=== PATIENT | male | born 1940 | race Caucasian/White ===

== ENCOUNTER → 2016-09-03 | Outpatient (CLI) | payer OTHER, MEDICARE ==
[2016-09-03 11:18] LABS: BILIRUBIN,URINE NEGATIVE (NEG); CLARITY,URINE Slightly Clo (CLEAR); GLUCOSE, URINE (UA) NEGATIVE (NEG); LEUKOCYTE ESTERASE ,URINE SMALL (NEG); NITRATE,URINE POSITIVE (NEG); OCCULT BLOOD,URINE NEGATIVE (NEG); PH,URINE 5.5 (5.0-8.5); PROTEIN,URINE NEGATIVE (NEG); UROBILINOGEN,URINE 0.2 EU/dL (0.2)
[2016-09-03 11:26] LABS: URINE SAMPLE TYPE CATH SPECIMEN
[2016-09-03 11:27] LABS: BACTERIA,URINE FEW; RBC,URINE 0-2 /hpf; RENAL EPITHELIAL CELLS,URINE RARE; SQUAMOUS EPITHELIAL CELL,UR FEW; WBC,URINE 25-30
== END ==
LOC: LAB 08:52
PROVIDERS: ATTEND Internal Medicine
DX: N39.0 Urinary tract infection, site not specified (principal); R82.99 Other abnormal findings in urine
CPT/HCPCS: 81001; 81003; 87077; 87088; 87186

== ENCOUNTER → 2016-09-05 | Outpatient (CLI) | payer OTHER, MEDICARE | LOC: MMPC 11:11 | PROVIDERS: ATTEND Internal Medicine | DX: L89.323 Pressure ulcer of left buttock, stage 3 (principal); N39.0 Urinary tract infection, site not specified; G82.20 Paraplegia, unspecified | CPT/HCPCS: 99214; G0463; J1580 ==

== ENCOUNTER → 2016-09-10 | Outpatient (CLI) | payer OTHER, MEDICARE ==
[2016-09-10 11:53] LABS: BACTERIA,URINE FEW; BILIRUBIN,URINE NEGATIVE (NEG); CLARITY,URINE CLEAR (CLEAR); GLUCOSE, URINE (UA) NEGATIVE (NEG); LEUKOCYTE ESTERASE ,URINE SMALL (NEG); NITRATE,URINE POSITIVE (NEG); OCCULT BLOOD,URINE NEGATIVE (NEG); PH,URINE 5.5 (5.0-8.5); PROTEIN,URINE NEGATIVE (NEG); RBC,URINE 0-1 /hpf; SQUAMOUS EPITHELIAL CELL,UR RARE; URINE SAMPLE TYPE CATH SPECIMEN; UROBILINOGEN,URINE 0.2 mg/dL (0.2); WBC,URINE 30-40
== END ==
LOC: LAB 11:37
PROVIDERS: ATTEND Internal Medicine
DX: N39.0 Urinary tract infection, site not specified (principal); R82.99 Other abnormal findings in urine
CPT/HCPCS: 81001; 87077; 87088; 87186

== ENCOUNTER → 2016-09-13 | Outpatient (CLI) | payer OTHER, MEDICARE ==
--- NOTE | 2016-09-13 13:00 | DI ---
CT ABDOMEN SCAN WITHOUT IV CONTRAST, 09/13/2016 9:21 AM : Clinical History: Urinary tract infection in a paraplegic patient. Previous Exam: 05/29/2015. Scans are performed from the lower lung bases through the liver and kidneys without IV contrast. Sagi ttal and coronal reformatted images are generated. The lung bases are clear. The liver is normal. The patient is status post cholecystectomy. There is n o abnormality of the spleen, pancreas, and adrenal glands. Both kidneys are normal in size, shape, po sition and contour. There is no hydronephrosis or hydroureter. No renal or ureteral calculi are prese nt. There are no abnormal retrocrural or periaortic nodes. No ascites is present. Posttraumatic avendano es and postsurgical changes are present in the lower thoracic and upper lumbar spine associated with the paraplegia. READING: Normal CT abdomen scan. Both kidneys are unremarkable. CT PELVIS SCAN WITHOUT IV CONTRAST, 09/13/2016 9:21 AM : Clinical History: See above. Previous Exam: 05/29/2015. Scans are performed from the inferior margin of the liver and kidneys to the symphysis pubis without IV contrast. There is no free fluid collection and there is no adenopathy. The appendix is not visualized but ther e is no inflammatory mass either in the cecal tip or in the right lower quadrant. The small bowel, te rminal ileum, and ileocecal valve are normal. There is a colostomy in the left flank region. There ar e no hernias. There has been complete fatty replacement of all the musculature in the abdomen from th e level of the umbilicus inferiorly. There is enlargement of the prostate and the bladder wall is thi ckened. The patient is status post ORIF of a right hip fracture. There is a chronic fracture of what probably was a subcapital fracture of the left hip and there has been erosion of over 50% of the femo ral head and virtually all of the femoral neck. The left femur is displaced superiorly and there is e xtensive inflammatory/infiltrative change surrounding the fracture site, probably representing disten tion of the joint capsule. There is increased density in the fatty tissue in the left buttock region without presence of soft tissue gas. This increased density may represent edema or early inflammation . READIN. There is prosthetic enlargement. The bladder wall is thickened, probably on a neurogenic basis. 2. There is a chronic fracture of the left hip with reabsorption of approximately 50% of the femoral head and almost complete reabsorption of the femoral neck. There is considerable increased density s urrounding the fracture site and this is probably inflammation/fluid related to the joint capsule. 3. There is increased density in the subcutaneous fat on the left side in the buttock region just in ferior to the left inferior pubic ramus. No soft tissue gas is present.
== END ==
LOC: CT 09:14
PROVIDERS: ATTEND Urology
DX: N39.0 Urinary tract infection, site not specified (principal); N40.0 Benign prostatic hyperplasia without lower urinary tract symptoms
CPT/HCPCS: 74176

== ENCOUNTER 2016-10-27 19:13 | Inpatient (IN) | payer OTHER, MEDICARE ==
[2016-10-27] MEDS ORDERED: Sodium Chloride 0.9% 1,000 ML PRIMARY IV ONE (19:55)
[2016-10-27] MEDS ORDERED: NORMAL SALINE 10 ML SYRINGE FLUSH IVP PRN ×2 (19:55→22:34)
[2016-10-27] MEDS ORDERED: Ertapenem Inj 1 GM in Sodium Chloride 0.9% 100 ML IV ONE (20:00)
[2016-10-27 20:31] LABS: VENOUS PCO2 25.8 mmHg (45-55); VENOUS PH 7.54 (7.32-7.42)
[2016-10-27 20:46] LABS: BASOPHILS # (AUTO) 0.02 10*3/UL; BASOPHILS % (AUTO) 0.1 % (0-1); EOSINOPHILS # (AUTO) 0.03 10*3/UL; EOSINOPHILS % (AUTO) 0.2 % (0-8); HEMATOCRIT 38.6 % (42.0-52.0); HEMOGLOBIN 12.8 g/dL (14.0-18.0); LYMPHOCYTES # (AUTO) 1.05 10*3/uL; MEAN CORPUSCULAR HEMOGLOBIN 30.3 PG (27-31); MEAN CORPUSCULAR HGB CONC 33.2 g/dL (33-37); MEAN CORPUSCULAR VOLUME 91.5 FL (80-90); MEAN PLATELET VOLUME 10.4 FL (7.4-12.2); MONOCYTES # (AUTO) 1.01 10*3/UL (0.3-0.8); MONOCYTES % (AUTO) 6.6 % (5-15); NEUTROPHILS # (AUTO) 13.15 10*3/UL; NEUTROPHILS % (AUTO) 86.1 % (50-80); RED BLOOD COUNT 4.22 10^6/uL (4.70-6.10)
[2016-10-27 20:47] LABS: PLATELET MORPHOLOGY COMMENT NORMAL MORPHOLOGY (NORM); RBC MORPHOLOGY COMMENT NORMAL MORPHOLOGY (NORM); WBC MORPHOLOGY COMMENT NORMAL MORPHOLOGY (NORM)
[2016-10-27 20:52] LABS: BUN/CREATININE RATIO 32.5 (6-20); CALCIUM 9.9 mg/dL (8.7-10.7); MAGNESIUM 2.1 mg/dL (1.6-2.4); SERUM ALBUMIN 3.7 g/dL (3.5-4.8)
--- NOTE | 2016-10-27 21:32 | PDOC ---
History and Physical - History of Present Illness Date and Time of Service: 10/27/2016 Chief Complaint: Fever, chills of 3 days duration. Increasing drainage and increase in depth of a decubitus ulcer on the left buttock History of Present Illness: This is a 76 years old male with medical history significant for history of T12 paraplegia, neurogenic bowel and bladder, status post colostomy does self- catheterization, history of atrial flutter, previous history of Pseudomonas bacteremia in 2015, Parkinson disease who developed a an ulceration on the left buttock about 8 weeks ago was seen by her Dr. Neves and he was getting wound care about 4 weeks ago. He traveled to [place] they stayed there for about a month the said she continued to do the dressing ranges but she noted a week ago that's the size and the depth of the ulceration is getting worse there is also some drainage. The last 3 days he reported some fever and chills and because of all the symptoms came into the ER. Evaluation in the ER revealed cellulitis was given antibiotics and fluid and was admitted. He doesn't have sensation in that area. There is decreased appetite but no other symptoms. The said that he did the driving back and forth from [place]. Past Medical History Medical History: 1. T12 paraplegia2. Neurogenic bowel and neurogenic bladder. He is status post diverting ostomy and does self-catheterization at home.3. Hypertension4. Chronic and recurrent urinary tract infection5. Obstructive sleep apnea, on CPAP6. Hypercholesterolemia7. History of DVT8. History of atrial flutter 9. History of Pseudomonas bacteremia in 2015 was treated with antibiotics for 3 weeks. 10. Parkinsonism, on when necessary Sinemet, mostly taken at night. Surgical History: 1. Ventriculostomy2. Back surgery including Hanson rods , back surgery overall [phone]. Cholecystectomy in March of 20144. EGD with duodenal ulcer in May 20145. Right rib resection with a benign tumor6. Right carotid endarterectomy7. Right shoulder surgery Pertinent Family History: Father of heart problems. Mother of old age. One sibling of a stroke. Past Social History: Does not smoke. Drinks occasionally. 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 Has 2 children described as healthy. 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 Tobacco Use: Never Smoker Substance Use Type: None Alcohol Use: Occasionally Medication / Allergies Home Medications: Home Medications Medication Instructions Recorded Confirmed Type Metoprolol Succinate 12.5 mg PO BID #60 tab 03/23/13 10/04/15 History Simvastatin 40 mg PO QD tab 03/15/14 10/04/15 History Finasteride 5 mg PO DAILY 07/12/15 10/04/15 History Diclofenac Sodium [Pennsaid] Sample #6 03/02/16 Clinic Diclofenac Sodium 100 gm TOPICAL BID PRN #1 tube 03/06/16 Clinic Ascorbic Acid [Vitamin C] 1 tab PO BID #0 tab 04/10/16 Clinic Rotigotine [Neupro] 6 mg TRANSDERM DAILY patch 06/06/16 History Collagenase Ointment [Santyl 90 gm TOPICAL QOD #1 tube 08/08/16 Clinic Ointment] Nitrofurantoin Macrocrystal 100 mg PO DAILY #90 cap 08/08/16 Clinic [Nitrofurantoin] Potassium Chloride [Klor-Con M10] 10 meq PO QOD #15 tab 09/24/16 Clinic Allergies/Adverse Reactions: Allergies Allergy/AdvReac Type Severity Reaction Status Date / Time No Known Allergies Allergy Verified 10/28/16 04:31 Review of Systems - Review of Systems All Systems: Reviewed & No Additional Complaints Except as Stated Exam - General General Appearance: POSITIVE: No Acute Distress, Cooperative, Obese - Head Head Exam: POSITIVE: Normal Inspection, Atraumatic - Eye Eye Exam: POSITIVE: Normal Appearance - ENT ENT Exam: POSITIVE: Mucous Membranes Dry - Neck Neck Exam: POSITIVE: Normal Inspection - Respiratory Respiratory Exam: POSITIVE: Clear to Auscultation - Bilaterally - Cardiovascular Cardiovascular Exam: POSITIVE: RRR - GI/Abdominal GI/Abdominal Exam: POSITIVE: Normal Bowel Sounds, Non Tender, Non Distended, Soft Additional GI/Abdominal Exam Details: Colostomy in the left midabdomen - External Exam: POSITIVE: Deferred - Extremities Extremities Exam: POSITIVE: Pedal Edema - Back Additional Back Exam Details: Decubitus ulcer stage III with drainage noted on the left buttock surrounded by erythema. There is erythema also of the right buttock - Neurological Neurological Exam: POSITIVE: Alert, Oriented x 3, Speech Intact / Clear Additional Neurological Exam Details: Paraplegia she is old - Psychiatric Psychiatric Exam: POSITIVE: Normal Affect Results - Labs CBC and BMP: 10/28/16 05:05 10/28/16 05:05 Assessment and Plan - Patient Problems (1) Cellulitis Current Visit: Yes Status: Acute Comment: There is cellulitis with decubitus ulceration, will put him on broad- spectrum antibiotics with Zosyn and vancomycin until we have culture result. Will talk to surgery and see whether he needs debridement. (2) History of atrial flutter Current Visit: No Status: Chronic Comment: continue metoprolol (3) Hypercholesterolemia Current Visit: No Status: Chronic Comment: Same medications (4) Decubitus ulcer Current Visit: Yes Status: Acute Comment: This is present on admission, the cellulitis is a complication I think off the ulceration. We'll ask PT also to continue wound care in addition to consultation from surgery. (5) Parkinson disease Current Visit: Yes Status: Acute Comment: Continue previous medications (6) DVT prophylaxis Current Visit: No Status: Acute Comment: We'll put him on Lovenox
[2016-10-27 21:33] LABS: BILIRUBIN,URINE NEGATIVE (NEG); CLARITY,URINE CLEAR (CLEAR); COLOR,URINE YELLOW; GLUCOSE, URINE (UA) NEGATIVE (NEG); NITRATE,URINE NEGATIVE (NEG); OCCULT BLOOD,URINE SMALL (NEG); PH,URINE 5.5 (5.0-8.5); PROTEIN,URINE 100 mg/dl (NEG); UROBILINOGEN,URINE 0.2 EU/dL (0.2)
[2016-10-27] MEDS ORDERED: ACETAMINOPHEN 325 MG TABLET PO ONE (21:34)
[2016-10-27 21:37] LABS: URINE SAMPLE TYPE CATH SPECIMEN
[2016-10-27 21:38] LABS: BACTERIA,URINE FEW; RBC,URINE 0-1 /hpf; RENAL EPITHELIAL CELLS,URINE RARE; SQUAMOUS EPITHELIAL CELL,UR FEW
[2016-10-27] MEDS ORDERED: ACETAMINOPHEN 500 MG TABLET PO ONE (21:45)
[2016-10-27] MEDS ORDERED: Sodium Chloride 0.9% 500 ML IV ONE (22:33)
[2016-10-27] MEDS ORDERED: LIDOCAINE W/ SODIUM BICARB 0.5 ML SYR SUBD PRN (22:34)
[2016-10-27] MEDS ORDERED: Vancomycin-PHA to Dose IV PRN (22:37)
[2016-10-27] MEDS ORDERED: ACETAMINOPHEN 325 MG TABLET PO PRN (22:47)
[2016-10-27] MEDS: Sodium Chloride 0.9% 1,000 ML PRIMARY IV SCH (23:51)
[2016-10-28] MEDS: Piperacillin/Tazobactam Inj 3.375 GM in Sodium Chloride 0.9% 100 ML IV SCH ×4 (00:03→17:31)
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
[2016-10-28 05:21] LABS: BASOPHILS # (AUTO) 0.01 10*3/UL; BASOPHILS % (AUTO) 0.1 % (0-1); EOSINOPHILS # (AUTO) 0.05 10*3/UL; EOSINOPHILS % (AUTO) 0.4 % (0-8); HEMOGLOBIN 11.2 g/dL (14.0-18.0); LYMPHOCYTES # (AUTO) 1.34 10*3/uL; MEAN CORPUSCULAR HEMOGLOBIN 30.2 PG (27-31); MEAN CORPUSCULAR HGB CONC 32.9 g/dL (33-37); MEAN CORPUSCULAR VOLUME 91.6 FL (80-90); MEAN PLATELET VOLUME 10.1 FL (7.4-12.2); MONOCYTES # (AUTO) 0.94 10*3/UL (0.3-0.8); MONOCYTES % (AUTO) 7.4 % (5-15); NEUTROPHILS # (AUTO) 10.26 10*3/UL; NEUTROPHILS % (AUTO) 81.3 % (50-80); RED BLOOD COUNT 3.71 10^6/uL (4.70-6.10)
[2016-10-28 05:22] LABS: PLATELET MORPHOLOGY COMMENT NORMAL MORPHOLOGY (NORM); RBC MORPHOLOGY COMMENT NORMAL MORPHOLOGY (NORM); WBC MORPHOLOGY COMMENT NORMAL MORPHOLOGY (NORM)
[2016-10-28 05:30] LABS: BUN/CREATININE RATIO 28.75 (6-20); CALCIUM 8.5 mg/dL (8.7-10.7)
--- NOTE | 2016-10-28 08:16 | PDOC(PROG) ---
Date and Time of Service: 10/28/2016 8:14 AM Interval History: Subjective Patient feels a little better today compared to yesterday, fever is down and no more chills. No other symptoms. His appetite still not back to usual. I talked to the again today and she mentioned that actually he did have decubitus ulcer before which she didn't mention last night, he had 4 in total she said. One needed surgery that was done in 30 04. The rest was treated with wound care. The last one was 2006. Objective : Data - Labs CBC and BMP: 10/28/16 05:05 10/28/16 05:05 Labs - Last 24 Hours: Laboratory Results 10/27/16 10/28/16 Range/Units 21:37 05:05 WBC 12.62 H (4.8-10.8) 10^3/uL RBC 3.71 L (4.70-6.10) 10^6/uL Hgb 11.2 L (14.0-18.0) g/dL Hct 34.0 L (42.0-52.0) % MCV 91.6 H (80-90) FL MCH 30.2 (27-31) PG MCHC 32.9 L (33-37) g/dL RDW Std Deviation 46.2 (39-50) fL RDW Coeff of Elder 14.1 (11.5-14.5) % Plt Count 258 (140-350) 10*3/uL MPV 10.1 (7.4-12.2) FL Immature Gran % (Auto) 0.2 (0-5) % Neut % (Auto) 81.3 H (50-80) % Lymph % (Auto) 10.6 (10-50) % [place] % (Auto) 7.4 (5-15) % Eos % (Auto) 0.4 (0-8) % Baso % (Auto) 0.1 (0-1) % Immature Gran # (Auto) 0.02 10*3/UL Neut # (Auto) 10.26 10*3/UL Lymph # (Auto) 1.34 10*3/uL [place] # (Auto) 0.94 H (0.3-0.8) 10*3/UL Eos # (Auto) 0.05 10*3/UL Baso # (Auto) 0.01 10*3/UL WBC Morphology Comment Normal morphology (NORM) Plt Morphology Comment Normal morphology (NORM) RBC Morph Comment Normal morphology (NORM) Sodium 135 (135-145) meq/L Potassium 3.4 L (3.8-5.2) meq/L Chloride 105 (98-112) meq/L Carbon Dioxide 22 L (23-33) meq/L Anion Gap 8 (5-20) BUN 23 H (7-22) mg/dL Creatinine 0.8 (0.70-1.50) mg/dL Estimated GFR (>60 ml/min/1.73m(2)) BUN/Creatinine Ratio 28.75 H (6-20) Glucose 89 (78-110) mg/dL Calculated Osmolality 282.0 (267-292) mOsm/kg Calcium 8.5 L (8.7-10.7) mg/dL Ur Collection Type Cath specimen Urine Color Yellow Urine Clarity Clear (CLEAR) Urine pH 5.5 (5.0-8.5) Ur Specific Center 1.020 (1.005-1.030) Urine Protein 100 (NEG) mg/dl Urine Glucose (UA) Negative (NEG) mg/dL Urine Ketones 40 (NEG) Urine Occult Blood Small H (NEG) Urine Nitrate Negative (NEG) Urine Bilirubin Negative (NEG) Urine Urobilinogen 0.2 (0.2) EU/dL Ur Leukocyte Esterase Small (NEG) Urine RBC 0-1 (NONE) /hpf Urine WBC 8-10 (NONE) Ur Squamous Epith Cells Few (NONE) Ur Renal Epithelial Cell Rare (NONE) Urine Crystals None Urine Bacteria Few (NONE) Urine Casts None (NONE) Urine Mucus Moderate (NONE) Urine Trichomonas None (NONE) Urine Yeast None (NONE) Ur Culture Indicated? Culture set Objective : Exam - General General Appearance: No Acute Distress, Cooperative, Obese - Head Head Exam: Normal Inspection, Atraumatic - Eye Eye Exam: Normal Appearance - Neck Neck Exam: Normal Inspection - Respiratory Respiratory Exam: Clear to Auscultation - Bilaterally - Cardiovascular Cardiovascular Exam: RRR - GI/Abdominal GI/Abdominal Exam: Normal Bowel Sounds, Non Tender, Non Distended, Soft Additional GI/Abdominal Exam Details: Colostomy in left mid abdomen - Rectal Rectal Exam: Deferred - External Exam: Deferred - Extremities Extremities Exam: Pedal Edema - Neurological Neurological Exam: Alert, Oriented x 3, CN II-XII Intact, Speech Intact / Clear Additional Neurological Exam Details: Paraplegia which is old - Integumentary Additional Integumentary Exam Details: Still there is a decubitus ulceration with redness around it. Redness also on the right buttock. Assessment and Plan - Patient Problems (1) Cellulitis Current Visit: Yes Status: Acute Comment: Continue current antibiotics, will order a CT of the pelvis. Will Speak with surgery. We'll cut back on his fluid. (2) History of atrial flutter Current Visit: No Status: Chronic Comment: Same medications (3) Hypercholesterolemia Current Visit: No Status: Chronic Comment: Same medications (4) Decubitus ulcer Current Visit: Yes Status: Acute Comment: We did consult PT for wound care (5) Parkinson disease Current Visit: Yes Status: Acute Comment: Same medications (6) DVT prophylaxis Current Visit: No Status: Acute Comment: He is on SCD boots and will write for Lovenox
[2016-10-28] MEDS ORDERED: POTASSIUM CHLORIDE 20 MEQ TAB PO SCH (09:00)
[2016-10-28] MEDS ORDERED: Patch Removal PATCH TRANSDERM SCH (09:00)
[2016-10-28] MEDS ORDERED: ASCORBIC ACID 500 MG TABLET PO SCH (09:00)
[2016-10-28] MEDS ORDERED: FINASTERIDE 5 MG TABLET PO SCH (09:00)
[2016-10-28] MEDS ORDERED: METOPROLOL SUCCINATE 25 MG SR 24H TABLET PO SCH (09:00)
[2016-10-28] MEDS ORDERED: ROTIGOTINE 6 MG TRANSDERM SCH (09:00)
[2016-10-28] MEDS: Sodium Chloride 0.9% 1,000 ML PRIMARY IV SCH ×2 (10:18→10:58)
--- NOTE | 2016-10-28 11:21 | DI ---
HISTORY: Left decubitus ulcer with cellulitis. COMPARISON STUDIES: None TECHNIQUE: Contiguous helical 3 mm images were obtained through the pelvis without the use of intrav enous contrast. 395 images. FINDINGS: Evidence of prior right hip ORIF with femoral head and neck screw and intramedullary andrade p artially visualized. No evidence of hardware complication. There is subcapital right femoral head fracture with large right hip effusion. Erosive changes of the fractured left femoral head fragment seen as well as erosion involving the left femoral neck. A large ulcer is noted on the left buttock measuring roughly 6 x 5 x 9 cm extending down to the left ischial tuberosity. There is slight irregularity of the involved cortical bone of the ischial tuberos ity. Bone mineralization is diffusely decreased. There congenital narrowing of the caudal spinal canal wi th moderate degenerative changes including multilevel facet arthrosis. Evidence of left lower quadrant colostomy. Diffuse colonic diverticular disesae present. No evidence of peritoneal abscess. Prostate is enlarged and the urinary bladder has a thickened wall, suggestive of chronic outlet obstruction. There is scrotal edema versus hydroceles. Visualized abdominal struct ures are otherwise unremarkable. Moderate aortoiliac atheromatous calcifications seen. No suspicious adenopathy. IMPRESSION: 1. Large left buttock ulceration involving the left ischial tuberosity, with findings concerning for early osteomyelitis. 2. Chronic subcapital left femoral head fracture with erosive changes of the femoral head and neck an d large left hip effusion. The findings are concerning for a neuropathic joint. A superimposed septic joint and/or osteomyelitis is not excluded. 3. Apparent scrotal edema may represent medial extent of cellulitis from he decubitus ulcer. Alternat ively this may represent small hydroceles. Correlate with physical exam and prior imaging. NOTIFICATION: The above findings were phoned to Melinda Cullen in the ER Department on 10/28/2016 at 1:28pm EST.
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
[2016-10-28] MEDS ORDERED: WATER STERILE FOR ONE (13:20)
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
--- NOTE | 2016-10-28 15:25 | ORTHO.CON ---
Consult Note - Consult Consult Date: 10/28/16 Reason for Consult: Other (Orthopaedic Consultation) Requesting Physician: Primary Care Provider: Roge Neves MD - History of Present Illness History of Present Illness: Patient is a 76-year-old male who was admitted to the hospital last night for fever and decubitus ulcer on the left that is ischial region. Patient was worked up with a CT scan was found to have free air which had traveled to the level of the ischium. Patient incidentally on the CT scan was found to have an old left hip fracture. Patient interestingly prior to leaving recently for a trip to [place] had a CT scan which also showed this fracture. Patient states he was unaware of this fracture. In discussing with patient he had a CT scan in May 2015 where he did not have a femoral neck fracture and does not recall anything from then until a more recently where he may have sustained this fracture. He states he has no pain or discomfort with this. Patient was evaluated by general surgery for the decubitus which physically tracks all the way down to the issue. Recently patient has been driving a lot from a trip he may take [place] for several weeks, prior to this he was treating a decubitus which sounds like it was a stage II to possibly 3. Patient had a decubitus ulcer on the right side years ago which was treated with what sounds like a muscle flap. This was done down in [facility] Past Medical History Medical History: 1. T12 paraplegia2. Neurogenic bowel and neurogenic bladder. He is status post diverting ostomy and does self-catheterization at home.3. Hypertension4. Chronic and recurrent urinary tract infection5. Obstructive sleep apnea, on CPAP6. Hypercholesterolemia7. History of DVT8. History of atrial flutter 9. History of Pseudomonas bacteremia in 2014 was treated with antibiotics for 3 weeks. 10. Parkinsonism, on when necessary Sinemet, mostly taken at night. Surgical History: 1. Ventriculostomy. 2. Back surgery including Hanson rods , back surgery overall x4. 3. Cholecystectomy in March of 2014. 4. EGD with duodenal ulcer in May 2015. 5. Right rib resection with a benign tumor. 6. Right carotid endarterectomy. 7. Right shoulder surgery. 8. Colostomy. 9. Myocutaneous flap right initial tuberosity. Pertinent Family History: Father of heart problems. Mother of old age. One sibling of a stroke. Past Social History: Does not smoke. Drinks occasionally. 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 Has 2 children described as healthy. 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 Tobacco Use: Never Smoker Substance Use Type: None Alcohol Use: Occasionally Medication / Allergies Home Medications: Home Medications Medication Instructions Recorded Confirmed Type Metoprolol Succinate 12.5 mg PO BID #60 tab 03/23/13 10/04/15 History Simvastatin 40 mg PO QD tab 03/15/14 10/04/15 History Finasteride 5 mg PO DAILY 07/12/15 10/04/15 History Diclofenac Sodium [Pennsaid] Sample #6 03/02/16 Clinic Diclofenac Sodium 100 gm TOPICAL BID PRN #1 tube 03/06/16 Clinic Ascorbic Acid [Vitamin C] 1 tab PO BID #0 tab 04/10/16 Clinic Rotigotine [Neupro] 6 mg TRANSDERM DAILY patch 06/06/16 History Collagenase Ointment [Santyl 90 gm TOPICAL QOD #1 tube 08/08/16 Clinic Ointment] Nitrofurantoin Macrocrystal 100 mg PO DAILY #90 cap 08/08/16 Clinic [Nitrofurantoin] Potassium Chloride [Klor-Con M10] 10 meq PO QOD #15 tab 09/24/16 Clinic Allergies/Adverse Reactions: Allergies Allergy/AdvReac Type Severity Reaction Status Date / Time No Known Allergies Allergy Verified 10/28/16 10:59 Exam - - Exam: Did not examine the decubitus ulcers since this was just done by general surgery with good documentation of the exam. Patient with no active motor lower extremities some shortening of the left leg compared to the right. CT scan shows a femoral neck fracture with significant abrasion of the remaining portion of the femoral head in the acetabulum. There are several small fracture fragments around the neck region. There is also evidence of significant synovitis or fluid/edema in the hip region. There is free air which seems to follow from the subcutaneous tissues to the ischium. The ischial bone has some irregularities. Evidence of edema surrounding the tract. I do not see a clear connection between the hip capsular tissue and the decubiti - Vitals Vital Signs: Vital Signs Temperature 97.8 F Temperature Source Temporal Artery Scan Pulse Rate [Apical] 90 Pulse Rate [Pulse Oximeter] 83 Pulse Rate 82 Respiratory Rate 18 Blood Pressure [Left Arm] 105/44 Blood Pressure 118/75 Pulse Ox 97 Oxygen Delivery Method Room Air Height 6 ft Weight 99.79 kg Results - Labs CBC and BMP: 10/28/16 05:05 10/28/16 05:05 Labs - Last 24 Hours: Laboratory Results 10/27/16 10/28/16 Range/Units 21:37 05:05 WBC 12.62 H (4.8-10.8) 10^3/uL RBC 3.71 L (4.70-6.10) 10^6/uL Hgb 11.2 L (14.0-18.0) g/dL Hct 34.0 L (42.0-52.0) % MCV 91.6 H (80-90) FL MCH 30.2 (27-31) PG MCHC 32.9 L (33-37) g/dL RDW Std Deviation 46.2 (39-50) fL RDW Coeff of Elder 14.1 (11.5-14.5) % Plt Count 258 (140-350) 10*3/uL MPV 10.1 (7.4-12.2) FL Immature Gran % (Auto) 0.2 (0-5) % Neut % (Auto) 81.3 H (50-80) % Lymph % (Auto) 10.6 (10-50) % [place]ajo % (Auto) 7.4 (5-15) % Eos % (Auto) 0.4 (0-8) % Baso % (Auto) 0.1 (0-1) % Immature Gran # (Auto) 0.02 10*3/UL Neut # (Auto) 10.26 10*3/UL Lymph # (Auto) 1.34 10*3/uL [place] # (Auto) 0.94 H (0.3-0.8) 10*3/UL Eos # (Auto) 0.05 10*3/UL Baso # (Auto) 0.01 10*3/UL WBC Morphology Comment Normal morphology (NORM) Plt Morphology Comment Normal morphology (NORM) RBC Morph Comment Normal morphology (NORM) Sodium 135 (135-145) meq/L Potassium 3.4 L (3.8-5.2) meq/L Chloride 105 (98-112) meq/L Carbon Dioxide 22 L (23-33) meq/L Anion Gap 8 (5-20) BUN 23 H (7-22) mg/dL Creatinine 0.8 (0.70-1.50) mg/dL Estimated GFR (>60 ml/min/1.73m(2)) BUN/Creatinine Ratio 28.75 H (6-20) Glucose 89 (78-110) mg/dL Calculated Osmolality 282.0 (267-292) mOsm/kg Calcium 8.5 L (8.7-10.7) mg/dL Ur Collection Type Cath specimen Urine Color Yellow Urine Clarity Clear (CLEAR) Urine pH 5.5 (5.0-8.5) Ur Specific Lisle 1.020 (1.005-1.030) Urine Protein 100 (NEG) mg/dl Urine Glucose (UA) Negative (NEG) mg/dL Urine Ketones 40 (NEG) Urine Occult Blood Small H (NEG) Urine Nitrate Negative (NEG) Urine Bilirubin Negative (NEG) Urine Urobilinogen 0.2 (0.2) EU/dL Ur Leukocyte Esterase Small (NEG) Urine RBC 0-1 (NONE) /hpf Urine WBC 8-10 (NONE) Ur Squamous Epith Cells Few (NONE) Ur Renal Epithelial Cell Rare (NONE) Urine Crystals None Urine Bacteria Few (NONE) Urine Casts None (NONE) Urine Mucus Moderate (NONE) Urine Trichomonas None (NONE) Urine Yeast None (NONE) Ur Culture Indicated? Culture set Assessment and Plan - Assessment / Plan Additional Assessment/Plan Details: Impression: Left stage IV decubiti extending to the left ischium. Chronic left femoral neck fracture with capsular synovitis /fluid/edema. Plan: I think at this point in time with the patient is having no symptoms with a hip fracture I don't think any type of surgical intervention would likely benefit the patient significantly. As I discussed with the patient this is like a Girdlestone procedure. I do think that the patient needs to have the hip capsular tissue evaluated further likely with an MRI if possible and possible aspiration to make sure that this has no connection or relation to the decubitus. I also think that this is a very complex case and would be best managed with a wound care team and in a facility that has multiple specialties available for input of this complex issue.
--- NOTE | 2016-10-28 15:28 | PT.PROG ---
Progress Note Progress Note: Received orders for wound care secondary to left ischial tuberosity grade IV pressure ulcer. Wound was cleansed with wound cleanser - measures 2.1 cm x 4.0 cm with a depth of approximately 5 cm to ischial tuberosity. Unable to visualize entire depth of wound secondary to necrotic and slough tissue but able to palpate with cotton tipped applicator. Moderate exudate is present from wound bed - seropurulent with reports from and nursing staff that the wound has been having copious amounts of drainage that saturated previous bandages. Wound was packaged with Promogran Leonor Ag and covered with PermaFoam and a mepilex bandage. Prior to admittance to the hospital, PT has been dressing wound with Promogran Leonor Ag. Discussed with staff about keeping pressure off of the wound. Continue to monitor wound for dressing changes and periwound for any signs of maceration due to amount of drainage present.
[2016-10-28 17:16] VITALS: RESP 22; TEMP 99.4
--- NOTE | 2016-10-28 18:39 | DI ---
XR CXR 1VW,10/27/2016 8:01 PM: Clinical History: Fever Previous Exam: May 29, 2015 Findings: 2 frontal radiographs of the chest are obtained, and demonstrate healing right lateral rib fractures. These are stable when compared with the prior exam. There are also stable postsurgical changes consistent with a right total shoulder arthroplasty. Degenerative changes of the acromioclavicular joint are seen. The cardiomediastinum is unremarkable. Impression: No acute disease.
[2016-10-28] MEDS ORDERED: Simvastatin Tab 80 MG TAB PO SCH (21:00)
[2016-10-29] MEDS ORDERED: ENOXAPARIN SODIUM 40 MG/0.4 ML SYRINGE SUBCUT SCH (09:00)
--- NOTE | 2016-10-29 15:11 | PTI REPORT ---
Thank you for the referral of Du Rivera. He was seen on 10/28/16 for an inpatient evaluation secondary to a left ischial tuberosity. SUBJECTIVE: The patient is a 76-year-old male who presents with a left Stage IV ulcer on his left ischial tuberosity. The patient has been previously receiving physical therapy for wound care but there has been a progression in the ulcer. His states that she has noticed an increase in drainage along with the patient spiking a small fever and generally not feeling well. Prior to PT dressing, Dr. Santa did meet with the patient and his and they are making plans to possibly transfer the patient to have a debridement and possible skin flap done for the wound but they would like PT to dress the wound while the patient is still here. The patient does have a spinal cord injury which occurred over 20 years ago and has no use of the bilateral lower extremities of feeling in the peroneal region or lower extremities. The patient does use a motorized wheelchair to get around. PAST MEDICAL HISTORY: Past medical history can be found in the patient's medical record. OBJECTIVE FINDINGS: The patient was laying in bed upon the therapist's arrival and was rolled to the right side and his wound on the left ischial tuberosity was slightly debrided and cleansed with wound cleanser. His wound measures 2.1 centimeters x 4.0 centimeters. The wound does have a depth of approximately 5 centimeters to the ischial tuberosity bone. It is a Stage IV pressure ulcer. The cy wound tissue is dark in color. According to previous reports from his his bandages have been having copious amounts of drainage and are needing to be replaced often. Following the wound cleansing the wound was packed with a Promogran prism silver dressing followed by application of foam dressing due to the copious amounts of drainage and a Mepilex bandage to hold the foam in place. With assistance of BAND SCROLL SAW OPERATOR we did reposition the patient as he had been laying on his right side for an extended amount of time. We did discuss repositioning and that the patient is to avoid any pressure on the left ischial tuberosity region. ASSESSMENT: The patient has fair rehab potential due to the size of the ulcer and also difficulty with repositioning. Problem List: Stage IV pressure ulcer on the left ischial tuberosity Short-Term Goals: To be met by discharge from inpatient: Patient will continue with dressing changes as needed to promote healing of Stage IV pressure ulcer Staff will be educated on proper position changes in order to alleviate pressure from the left ischial tuberosity TREATMENT PLAN: Patient will most likely be transferred to a different hospital for further debridement of wound but we will continue with wound care as needed. INITIAL TREATMENT: Treatment today consisted of the initial evaluation as well as dressing change and repositioning. DONTE
== END 2016-10-28 20:29 | disposition short-term general hospital (02) | DRG 592 ==
LOC: ER 19:13 → MED/SURG 21:10
PROVIDERS: ADMIT Internal Medicine; ATTEND Internal Medicine
DX: L89.329 Pressure ulcer of left buttock, unspecified stage (principal); L89.324 Pressure ulcer of left buttock, stage 4; L03.317 Cellulitis of buttock; R50.9 Fever, unspecified; M86.8X8 Other osteomyelitis, other site; G82.20 Paraplegia, unspecified; M84.412 Pathological fracture, left shoulder; N31.9 Neuromuscular dysfunction of bladder, unspecified; I10 Essential (primary) hypertension; G20 Parkinson's disease
CPT/HCPCS: 36415; 71010; 72192; 80048; 80053; 81001; 81003; 82803; 83605; 83735; 85025; 87040; 87070; 87075; 87077; 87088; 87186; 87205; 94761; 96361; 96365; 97161; 99284; A4216; J1335; J2543; J3370; J7030; J7040; J7050

== ENCOUNTER 2016-12-31 14:46 | Inpatient (IN) | payer OTHER, MEDICARE ==
[2016-12-31] MEDS ORDERED: DICLOFENAC SODIUM 100 GM TOPICAL PRN (15:10)
[2016-12-31] MEDS ORDERED: COLLAGENASE TOPICAL SCH (15:15)
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
[2016-12-31] MEDS ORDERED: oxyCODONE-ACETAMINOPHEN 5-325 TAB PO PRN (15:21)
[2016-12-31] MEDS: NITROFURANTOIN/NITROFURAN MAC 100 MG CAPSULE PO SCH (20:06)
[2016-12-31] MEDS: Metoprolol TARTRATE Tab 25 MG TAB PO SCH (20:06)
[2016-12-31] MEDS: ASCORBIC ACID 500 MG TABLET PO SCH (20:07)
[2016-12-31] MEDS: Simvastatin Tab 40 MG TAB PO SCH (20:07)
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
[2017-01-01 08:23] LABS: BASOPHILS # (AUTO) 0.03 10*3/UL; BASOPHILS % (AUTO) 0.2 % (0-1); EOSINOPHILS # (AUTO) 0.14 10*3/UL; EOSINOPHILS % (AUTO) 0.9 % (0-8); HEMATOCRIT 39.9 % (42.0-52.0); HEMOGLOBIN 13.1 g/dL (14.0-18.0); LYMPHOCYTES # (AUTO) 1.53 10*3/uL; MEAN CORPUSCULAR HEMOGLOBIN 29.8 PG (27-31); MEAN CORPUSCULAR HGB CONC 32.8 g/dL (33-37); MEAN CORPUSCULAR VOLUME 90.7 FL (80-90); MEAN PLATELET VOLUME 9.8 FL (7.4-12.2); MONOCYTES # (AUTO) 0.99 10*3/UL (0.3-0.8); MONOCYTES % (AUTO) 6.2 % (5-15); NEUTROPHILS # (AUTO) 13.29 10*3/UL; NEUTROPHILS % (AUTO) 82.9 % (50-80)
[2017-01-01 08:25] LABS: PLATELET MORPHOLOGY COMMENT NORMAL MORPHOLOGY (NORM); RBC MORPHOLOGY COMMENT NORMAL MORPHOLOGY (NORM); WBC MORPHOLOGY COMMENT NORMAL MORPHOLOGY (NORM)
[2017-01-01] MEDS: ASCORBIC ACID 500 MG TABLET PO SCH ×2 (08:31→21:48)
[2017-01-01] MEDS: ENOXAPARIN SODIUM 40 MG/0.4 ML SYRINGE SUBCUT SCH (08:32)
[2017-01-01] MEDS: FINASTERIDE 5 MG TABLET PO SCH (08:32)
[2017-01-01] MEDS: Metoprolol TARTRATE Tab 25 MG TAB PO SCH ×2 (08:32→21:48)
[2017-01-01] MEDS: Potassium Chloride Tab 10 MEQ TAB PO SCH (08:32)
[2017-01-01] MEDS: ROTIGOTINE TRANSDERM SCH (08:33)
[2017-01-01 08:34] LABS: BUN/CREATININE RATIO 32.22 (6-20); C-REACTIVE PROTEIN 8.9 mg/dL (0.0-0.9); CALCIUM 10.3 mg/dL (8.7-10.7); SERUM ALBUMIN 3.4 g/dL (3.5-4.8)
--- NOTE | 2017-01-01 12:08 | PT.PROG ---
Progress Note Progress Note: AM PT S: Du is doing fairly well this AM. Du had his wound vac dressing change earlier this AM and had an OT evaluation prior to PT. Pt was brought to the therapy room by OT. O: Treatment consisted of: slide board transfer from w/c to mat - required assist x 3 and max A x 1 with slide board placement; sitting EOB with mod - max A x 1 to help maintain trunk balance with instruction in rows with green tband and boxing activity to promote cross body, large movements of u/e's x 20 minutes with rest breaks every 2-3 minutes. Slide board transfer from mat to w/ c with max A x 1 for set up with w/c and slide board and assist x 2 with transfer. Required max A x 2 to reposition in w/c. Pt was brought back upstairs and performed another slide board transfer from w/c to bed with max A x 1 for set up and max A x 2 with transfer. Max A x 2 to reposition in bed. Pt was left in bed with alarm set and call light within reach. A: Tolerated program well and required mod-max A x 1 with seated EOB to maintain upright position. Pt fatigued easily with dynamic seated activities and required 2-3 minutes between activities to recover. P: Continue per POC. Trial sit to stand this afternoon.
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
--- NOTE | 2017-01-01 16:13 | PT.PROG ---
Progress Note Progress Note: 01/01/2017 2:30-3:00 S: subject reports feeling ready for PT. O: pt. performed transfers out of the bed and to the stander with max/mod assist. He stood up in the stander for the entirety of his session. He performed boxing for 4 1 min bouts. Pt. was asked if he could perform some strengthening exercises, but stated he did so this morning and was tired. A: pt. tolerated exercise well, but tired quickly. He cou;d use some more work on his functional activities including transfers and sitting balance P: incorporate more strengthening activityh as well as some balance work.
--- NOTE | 2017-01-01 16:43 | OT.PROG ---
Progress Note Progress Note: S: pt was in good spirits, he wanted to stay up in stander for at least an hour to two he reported. O: pt was seen in therapy today in the p.m. He was transferred to [facility], where he stayed upright while participating in card game to enhance cognitive performance/problem solving and increase activity tolerance while up in [place] [facility]. pt was returned to his room by PT. A: pt participated well today, we was a little fatigued from transfer up from [place] yesterday. Continue to progress with goals. P: continue per plan of care.
[2017-01-01] MEDS: NITROFURANTOIN/NITROFURAN MAC 100 MG CAPSULE PO SCH (21:48)
[2017-01-01] MEDS: Simvastatin Tab 40 MG TAB PO SCH (21:48)
[2017-01-02 05:11] LABS: BASOPHILS # (AUTO) 0.02 10*3/UL; BASOPHILS % (AUTO) 0.1 % (0-1); EOSINOPHILS # (AUTO) 0.26 10*3/UL; EOSINOPHILS % (AUTO) 1.8 % (0-8); HEMOGLOBIN 12.1 g/dL (14.0-18.0); LYMPHOCYTES # (AUTO) 1.45 10*3/uL; MEAN CORPUSCULAR HEMOGLOBIN 29.5 PG (27-31); MEAN CORPUSCULAR HGB CONC 32.7 g/dL (33-37); MEAN CORPUSCULAR VOLUME 90.2 FL (80-90); MONOCYTES % (AUTO) 10.1 % (5-15); NEUTROPHILS # (AUTO) 11.55 10*3/UL; NEUTROPHILS % (AUTO) 78.1 % (50-80)
[2017-01-02 05:20] LABS: BUN/CREATININE RATIO 41.25 (6-20); CALCIUM 9.9 mg/dL (8.7-10.7); SERUM ALBUMIN 3.1 g/dL (3.5-4.8)
[2017-01-02 05:21] LABS: PLATELET MORPHOLOGY COMMENT NORMAL MORPHOLOGY (NORM); RBC MORPHOLOGY COMMENT NORMAL MORPHOLOGY (NORM); WBC MORPHOLOGY COMMENT NORMAL MORPHOLOGY (NORM)
--- NOTE | 2017-01-02 08:49 | PT AM DAY ---
Diagnosis : Left Ischial Tuberosity Ulcer AM - Physical Therapy S: According to the nursing staff, the wound vac did not have a good seal on it and it has been blurping all night and they would like physical therapy to check it. O: Upon inspection, the previous day's wound vac was removed and it was redressed, placing the bridge more distal toward the knee for a sealing effect to the area. Wound measurements at this time remain the same. A: Following today's treatment we had an appropriate seal on the vac. P: Continue seeing patient BID during the week and one time per day over the weekend until discharge. MTDD
[2017-01-02] MEDS: Metoprolol TARTRATE Tab 25 MG TAB PO SCH ×2 (08:59→21:21)
[2017-01-02] MEDS: ENOXAPARIN SODIUM 40 MG/0.4 ML SYRINGE SUBCUT SCH (09:00)
[2017-01-02] MEDS: ASCORBIC ACID 500 MG TABLET PO SCH ×2 (09:00→21:21)
[2017-01-02] MEDS: FINASTERIDE 5 MG TABLET PO SCH (09:00)
[2017-01-02] MEDS: ROTIGOTINE TRANSDERM SCH (13:06)
--- NOTE | 2017-01-02 16:32 | OT.PROG ---
Progress Note Progress Note: S: pt stated he wanted to get dressed and go outside since it's so nice. O: pt was seen in his room in the p.m. He was in supine position in bed and was assisted with ADL dressing, Mod A. He completed bed mobility with MOd A to EOB. Transfer to w/c with slide board x2 man assist. He transferred downstairs in w/c Ind. A: pt completed transfers much better this afternoon. He still needs assistance with dressing and could benefit from trapeze to assist with bed mobility. Monitor wound vac during transfers. P: continue per plan of care.
--- NOTE | 2017-01-02 16:49 | PT.PROG ---
Progress Note Progress Note: 01/02/2017 4:00-4:30 S: pt. reports feeling good, although he says getting out of his room takes longer than he would like O: pt. wanted to be outside so exercises where performed outside in the stander. pt. was outstanding. pt. performed oh movements with his arms first in abduction and then in scaption 2x12 each. He performed curls, tricep extensions and rows all 2x12 with the red band. He performed boxing for 4 1 min bouts. A: pt. lacks strength at end range OH, so improving that could help him be more functional from his wheelchair. All other exercise he tolerated well, but tired quickly with boxing P: continue working to improve OH activity and perform an extra minute of boxing.
[2017-01-02] MEDS: NITROFURANTOIN/NITROFURAN MAC 100 MG CAPSULE PO SCH (21:21)
[2017-01-02] MEDS: Simvastatin Tab 40 MG TAB PO SCH (21:21)
[2017-01-03] MEDS: ASCORBIC ACID 500 MG TABLET PO SCH ×2 (08:18→21:00)
[2017-01-03] MEDS: FINASTERIDE 5 MG TABLET PO SCH (08:18)
[2017-01-03] MEDS: ENOXAPARIN SODIUM 40 MG/0.4 ML SYRINGE SUBCUT SCH (08:19)
[2017-01-03] MEDS: Metoprolol TARTRATE Tab 25 MG TAB PO SCH ×2 (08:19→21:00)
[2017-01-03] MEDS: ROTIGOTINE TRANSDERM SCH (08:19)
[2017-01-03] MEDS: Potassium Chloride Tab 10 MEQ TAB PO SCH (08:19)
--- NOTE | 2017-01-03 10:03 | OTI REPORT ---
Thank you for the referral of Du Rivera. He was seen on 01/01/17 for an occupational therapy inpatient evaluation. SUBJECTIVE: The patient is a 76-year-old male who is being seen secondary to having quite an extensive hospital stay between [facility]. The patient has a wound on his left ischial tuberosity that is being treated by physical therapy. Prior to admission the patient lived at home with his . The patient reports that he has a long seated shower bench that he could get on to with use of a slide board and min assist from his . He usually could do most of his bathing by himself with min assist from his . The patient reports that he could dress himself pretty much independently at home but did need a little bit of assistance with rolling in bed and pulling pants from bottom area to waist level from his . The patient did just purchase a slide board that has a swivel seat on it and he states this has immensely improved his abilities to complete transfers without shearing his bottom area. The patient does have a powered wheelchair. The patient typically drives but states he has not been driving for quite some time. The patient also reports that he was seeing speech therapy in [place] secondary to his decreased ability to speak. There was some mention of swallowing difficulties and this will be further assessed. PAST MEDICAL HISTORY: Past medical history can be found in the patient's medical record. OBJECTIVE FINDINGS: General observations: The patient was sitting in bed upon the therapist's arrival. Activities of daily living: After set up the patient was able to complete some simple hygiene activities in bed. We assessed how the patient was dressing himself. The patient needed mod assist to dress upper extremities secondary to decreased mobility. The patient needed max assist to dress lower extremities. The patient had difficulty because he was on an air mattress; he could not reach his feet today. He also needed max assist to complete his turns and to pull his pants up to waist level. He was dependent with his socks. The patient is modified independent for eating and grooming. The patient requires max assistance for bathing. The patient requires min assist for toileting with the use of his colostomy bag. Bed mobility: The patient was able to come from supine to edge of bed with use of slide board with max assist. He needed full assistance with the slide board underneath his bottom. Transfers: Once on the slide board he did pretty well sliding over to the edge of his chair. He is able to complete some weight shifts and transferred into the power chair with contact guard assist. We are not completing toilet transfers secondary to having the colostomy bag. The patient requires max assist for shower transfers. Range of motion: Upper extremity range of motion is within normal limits on the right side. Strength: Strength on the right side was 4/5 for flexion, 4/5 for abduction, 4+/ 5 for abduction, 4+/5 for elbow flexion/extension, and 4+/5 for wrist flexion/ extension. Pain: The patient is reporting that his left shoulder is very painful. He is having increased difficulty with reaching overhead with the left shoulder. Cognition: Comprehension expression/social interaction is independent. Swallow: There are some possible slight concerns about his memory. The patient did demonstrate coughing with water today. There was mention of some possible swallowing difficulties. We will continue to assess this. The patient may need a formalized swallow evaluation at some point in time. ASSESSMENT: Problem List: Decreased ability to perform ADLs Decreased ability to perform functional transfers Decreased ability to shower self Short-Term Goals: To be met by discharge from inpatient: Patient will be able to dress self while in bed with min assist for the lower extremities. Patient will be able to dress self with modified independence after set up. Patient will improve upper extremity strength to 4+/5 for functional transfers. Patient will have full active range of motion of his left upper extremity when completing reaching tasks. Patient will be able to complete a shower transfer/bench transfer with min assist. Patient will possibly need a swallow evaluation based on the next 24-hours of observation. Long-Term Goals: To be met following discharge from inpatient: Patient will be discharged home being able to complete most transfers and ADLs with no more than min assist. TREATMENT PLAN: Patient will be seen B.I.D during the week and one time per day over the weekend as an inpatient to address the above goals and objectives. INITIAL TREATMENT: Treatment today consisted of the initial evaluation followed by the patient delfina forrester with max assist. The patient was dependent with donning socks. The patient donned shirt with mod assist. The patient transferred to his wheelchair with max assist with the use of his slide board. Downstairs in therapy we worked on upper extremity strengthening including shoulder extension , triceps extension, rows, biceps curls, and shoulder adduction. He worked on three way bungees for scapular stabilization and strengthening. The patient received manual therapy to the left upper extremity including passive range of motion as actively he is only able to raise the arm to 90 degrees. After manual therapy and exercise the patient was able to raise his arm to 130 degrees and he said it felt much better. DONTE
--- NOTE | 2017-01-03 10:14 | OT AM DAY ---
Diagnosis : Paraplegia AM - Occupational Therapy S: The patient reports that he wanted to take a shower today. O: Today the therapist assisted with making sure the patient's wound vac was sealed before the shower. We had the patient transfer from the slide board to the wheelchair. He needed max assist with this as we did not have shorts on him at the time and it was very difficult for him to transfer this way. We ended up in the shower room and the patient still needed max assist to get from the wheelchair to the long seated shower chair. Once in the shower chair the patient needed assistance with washing his back and knee to foot area. He was able to wash his hair, stomach, upper extremities, and upper thigh area. He did need max assist to wash the peroneal area. The patient was able to dry 75% of his body. He was placed in a gown afterward as physical therapy still needed to look at his wound vac. The patient transferred back to his power chair with max assist. The patient was able to transfer back to his wheelchair with max assist. He then transferred from his power chair to bed with max assist x3. A: The patient requires quite a bit of assistance with showering task. He is having more difficulty transferring to the shower chair. He would continue to benefit from therapy and working on increasing his independence. P: Continue seeing patient BID during the week and one time per day over the weekend for upper extremity strengthening, ADLs, and overall functional transfers. MTDD
--- NOTE | 2017-01-03 10:51 | PT.PROG ---
Progress Note Progress Note: 01/04/2016 10:00-10:30 S: subject reports feeling good.He states he feels some muscle soreness in his shoulders O: pt. performed arm bike for 20 min, cable exercises including pull downs, adduction, rows, curls, tricep ext. and press ups in his chair. He then struggled with a transfer to the mat where we worked seated balance playin catch with soft dodge ball and a small 2# medicine ball. we went for 3 1 min sessions. A: pt. has good UE strength, but needs more functional strength to assist him in his ADLs. OH activity will be good to continue as well as pressing maneuvers to help with transfers. His sitting balance was decent, but also could use some more work. P: work on more pressing exercises as well as shoulder abd. and add. to help strengthen UE for better transfers.
--- NOTE | 2017-01-03 11:38 | OT.PROG ---
Progress Note Progress Note: S: pt was up and stated he was ready to get dressed this morning, and he wanted to shave first. reports shoulder being sore today. O: pt was seen in his room and completed UE/LE dressing. UE dressing completed with MIn A, and LE dressing completed with Max x2 man today. Pt does assist with rolling to R and L to Riaz LE pants. pt transferred from bed to w/c with slide board x2 man. He completed shaving activity INd with assistance from set up. Pt transferred downstairs in w/c and completed 20 min on UE bike to increase activity tolerance. After arm bike PT took over tx. A: pt participated well today, continue to monitor wound vac during transfers with slide board. P: continue per plan of care.
--- NOTE | 2017-01-03 11:41 | OTI REPORT ---
Thank you for the referral of Du Rivera. He was seen on 01/02/17 for an occupational therapy swallow evaluation. SUBJECTIVE: The patient is a 76-year-old male. The patient is in the hospital for wound care and strengthening; although therapy has noticed that at times he is coughing with water, so we did go ahead and request a swallow evaluation. At this time the patient is on a normal diet with thin liquids and has not noted any issues with swallowing; although the patient does report that he has Parkinson's and that may be making it difficult for him to swallow at times. PAST MEDICAL HISTORY: Past medical history can be found in the patient's medical record. OBJECTIVE FINDINGS: General observations: The patient is alert and responsive and in bed upon the therapist's arrival. We upped the bed to an 80 degree angle. The patient was able to arrange himself in the bed when it was elevated to the 80 degree angle; although he was having difficulty keeping from falling to the right. We did go ahead and support him with a pillow. Once supported he did well. Reliable responses: The patient does have reliable yes and no responses. Facial symmetry: The patient has good facial symmetry. Volitional dry swallow: The patient is able to demonstrate a volitional dry swallow; however, it is only moderate. Following directions: The patient is able to follow two step directions. He does not demonstrate neglect or apraxia. Cough: The patient has a moderate cough. 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 Nutrition intake: Nutrition intake is good; the patient is on a regular textured diet with thin liquids. Oxygen: The patient is not on oxygen at this time. Secretions: The patient can handle his own secretions. Dentition: The patient is missing some teeth in his mouth; although he is still able to chew. Voice quality: Voice quality is good most of the time when not eating or drinking. Tongue range of motion: Tongue range of motion is within normal limits. Head control: Head control is good. Jaw mobility: Jaw mobility is good. Lip control: Lip control is good. Lingual function: Lingual function has good range of motion. Sensation: The patient demonstrates good sensation. Gag reflex: The patient demonstrates a good gag reflex. Feeding Assessment: The patient was brought a normal meal of chicken fajitas with a tortilla as well as a corn/nowak salad, a root beer, and a protein shake. The patient was able to demonstrate good strong swallows with most bites. With the thin liquids every once in a while he did seem a little bit gurgley afterward; however, with a re-swallow he was able to clear that. The patient did not have any issues with the tortilla or the chicken or any of the vegetables. He was able to clear those with no signs of aspiration. The cups he was drinking out of were normal cups with no straws. He was able to tip them back and drink; although it was noted when he was drinking out of those cups he really did not have to put his head into extension, he was able to keep it neutral and swallow with little difficulties. ASSESSMENT: At this time it is recommended the patient stay on a regular diet with thin liquids. It is noted that in therapy when he was seen coughing with water, he was drinking out of a normal sports bottle with a push cap. He did comment that it is very hard to squeeze. The therapist thinks he is extending his neck to get the water into the top of the bottle and then squeezing so the force of the water out of the bottle combined with the neck extension is causing him to aspirate on that water. We will change his cup down in therapy and advise the patient not to use those types of bottles anymore. Also, the therapist would like to teach the patient some swallowing exercises to assist him with making his swallow stronger since it is somewhat weak and walk the patient through some compensation techniques such as tucking the chin and secondary swallows to clear the throat when he seems gurgley. INITIAL TREATMENT: Treatment today consisted of the swallow assessment only. DONTE
--- NOTE | 2017-01-03 12:17 | PT AM DAY ---
Diagnosis : Left Ischial Tuberosity Ulcer AM - Physical Therapy S: According to the OT staff, the patient needs a shower and with all of the transferring, the seal of his wound vac has been compromised. They state the wound vac was removed for the purpose of showering and needs to be replaced. O: After speaking with occupational therapy, they stated two pieces of foam were removed from the pressure ulcer itself and that is all they could recall seeing. When asked if the Adaptic Touch was also removed, they stated they did not see this. Prior to the wound vac being replaced on the pressure ulcer, a visual inspection as well as a physical inspection of the pressure ulcer was done in the wound bed and this piece was not found by the physical therapist. It was then redressed with Promogran Leonor foam in the wound bed itself followed by Adaptic touch, three pieces of black foam dressing in the wound bed and then the bridge dressing itself extending to the anterior thigh. The settings were set at 125mmHg and at the time of application no compromise in the seal was present. A: Follow up measurements were taken and the tunneling that was 6.8 centimeters on Saturday appeared to have decreased to 6.5 centimeters and the depth that was 5.0 centimeters on Saturday had decreased to 4.8 centimeters. The therapist did speak with both physical and occupational therapy and the contents of the wound that there is the Promogran Leonor followed by Adaptic touch, three pieces of black foam, followed by the bridge dressing. We also discussed concerns in regards to transfers, specifically with his wound vac in relation to the transfer board. The therapist did contact [facility] to have more dressing shipped under the name of MATT Wynn. The reference number is [id number]. P: The patient's treatment may be modified due to the need to replaced his wound vac three days in a row due to compromises with the seal. If compromises with the seal continue to be an issue we will emphasis our focus with therapy on wound management, attempting to place more emphasis on pressure relief off of his wound. DONTE
--- NOTE | 2017-01-03 15:16 | PDOC(PROG) ---
Date and Time of Service: 01/03/2017, 1512 Interval History: No completes of chest pain, shortness breath, nausea or vomiting, or abdominal pain from the patient. He states his ostomy is working well. He still wants to continue self catheter and does not want an indwelling Conklin catheter. He wants to give his wound every chance to heal with wound VAC therapy and avoid flap because he doesn't want to lay in bed for 12 weeks postoperatively at this point in time. I examined the wound with physical therapy. It looks clean and dry with no drainage. The white blood cell count elevation from [place] where they were normal is concerning to me however, particularly with the elevated sedimentation rate. Objective : Data - Labs CBC and BMP: 01/02/17 04:32 01/02/17 04:32 Labs - Last 24 Hours: Laboratory Results 01/01/17 01/02/17 Range/Units 07:57 04:32 WBC 16.01 H 14.80 H (4.8-10.8) 10^3/uL RBC 4.40 L 4.10 L (4.70-6.10) 10^6/uL Hgb 13.1 L 12.1 L (14.0-18.0) g/dL Hct 39.9 L 37.0 L (42.0-52.0) % MCV 90.7 H 90.2 H (80-90) FL MCH 29.8 29.5 (27-31) PG MCHC 32.8 L 32.7 L (33-37) g/dL RDW Std Deviation 49.4 48.9 (39-50) fL RDW Coeff of Elder 15.2 H 15.1 H (11.5-14.5) % Plt Count 377 H 334 (140-350) 10*3/uL MPV 9.8 10.0 (7.4-12.2) FL Immature Gran % (Auto) 0.2 0.1 (0-5) % Neut % (Auto) 82.9 H 78.1 (50-80) % Lymph % (Auto) 9.6 L 9.8 L (10-50) % Hartley % (Auto) 6.2 10.1 (5-15) % Eos % (Auto) 0.9 1.8 (0-8) % Baso % (Auto) 0.2 0.1 (0-1) % Immature Gran # (Auto) 0.03 0.02 10*3/UL Neut # (Auto) 13.29 11.55 10*3/UL Lymph # (Auto) 1.53 1.45 10*3/uL Hartley # (Auto) 0.99 H 1.50 H (0.3-0.8) 10*3/UL Eos # (Auto) 0.14 0.26 10*3/UL Baso # (Auto) 0.03 0.02 10*3/UL WBC Morphology Comment Normal morphology Normal morphology (NORM) Plt Morphology Comment Normal morphology Normal morphology (NORM) RBC Morph Comment Normal morphology Normal morphology (NORM) ESR 62 H (0-15) MM/HR Sodium 136 136 (135-145) meq/L Potassium 3.9 4.0 (3.8-5.2) meq/L Chloride 104 105 (98-112) meq/L Carbon Dioxide 23 23 (23-33) meq/L Anion Gap 9 8 (5-20) BUN 29 H 33 H (7-22) mg/dL Creatinine 0.9 0.8 (0.70-1.50) mg/dL Estimated GFR (>60 ml/min/1.73m(2)) BUN/Creatinine Ratio 32.22 H 41.25 H (6-20) Glucose 136 H 97 (78-110) mg/dL Calculated Osmolality 289.0 288.0 (267-292) mOsm/kg Calcium 10.3 9.9 (8.7-10.7) mg/dL Total Bilirubin 0.9 0.7 (0.3-1.2) mg/dL AST 20 L 15 L (21-57) IU/L ALT 32 35 (21-72) IU/L Alkaline Phosphatase 96 91 (38-126) IU/L C-Reactive Protein 8.9 H (0.0-0.9) mg/dL Total Protein 7.1 6.6 (6.1-8.0) g/dL Albumin 3.4 L 3.1 L (3.5-4.8) g/dL Globulin 3.7 3.5 (2.50-4.10) g/dL Albumin/Globulin Ratio 0.90 L 0.80 L (1.3-2.0) mg/g Objective : Exam - General General Appearance: No Acute Distress, Cooperative Additional General Exam Details: Vital Signs - Last Taken Temperature 98.6 F 01/03/17 06:41 Pulse Rate 79 01/03/17 06:41 Respiratory Rate 18 01/03/17 06:41 Blood Pressure 107/53 01/03/17 06:41 Pulse Ox 94 01/03/17 06:41 - Eye Eye Exam: No Scleral Icterus - Respiratory Respiratory Exam: Clear to Auscultation - Bilaterally, Breathing Non Labored - Cardiovascular Cardiovascular Exam: No Murmur, No Clicks, No Gallops, No Rubs, Irregular Rhythm (Irregularly irregular), No JVD - GI/Abdominal GI/Abdominal Exam: Normal Bowel Sounds, Non Tender, Non Distended, Soft Additional GI/Abdominal Exam Details: Ostomy site is clean, dry, intact - Rectal Additional Rectal Exam Details: On the left initial tuberosity there is about a $0.50 piece to quarter size diameter initial tuberosity decubitus ulcer, stage IV, that tunnels approximately 2 inches or so in either direction. It is clean. No drainage. - Extremities Extremities Exam: No Clubbing Present, No Edema Present, No Cyanosis Present - Neurological Neurological Exam: Alert, Oriented x 3, No Facial Droop, Speech Intact / Clear Assessment and Plan - Patient Problems (1) Left ischial pressure sore Current Visit: Yes Status: Acute Comment: Present on admission here Qualifiers: Pressure ulcer stage: stage 4 Qualified Description: Pressure sore of left ischial area, stage IV Qualifier Code(s): (L89.324) Pressure ulcer of left buttock, stage 4 (2) Paraplegia Current Visit: Yes Status: Chronic (3) Parkinson disease Current Visit: Yes Status: Acute (4) Hypercholesterolemia Current Visit: Yes Status: Chronic (5) Neurogenic bladder Current Visit: Yes Status: Chronic (6) Neurogenic bowel Current Visit: Yes Status: Chronic (7) Atrial flutter Current Visit: Yes Status: Acute Qualifiers: Atrial flutter type: unspecified Qualified Description: Atrial flutter , unspecified type Qualifier Code(s): (I48.92) Unspecified atrial flutter - Assessment / Plan Additional Assessment/Plan Details: Get an MRI scan to look for potential osteomyelitis again. I don't like that the white blood cell count and sedimentation rates are elevated. No fevers thus far. Patient does not look septic or toxic. Continue wound VAC and wound care therapy with physical therapy department. May need to adjust what he is doing for age fibrillation/atrial flutter, get an EKG. May need aspirin or other medications for stroke prevention. At this time, do not start antibiotics. Specialty bed and pressure offloading. Add multivitamin and zinc, discussed with nutrition therapy. Photo / Body Diagrams - Uploaded Photos Uploaded Photos:
[2017-01-03] MEDS: Simvastatin Tab 40 MG TAB PO SCH (21:00)
[2017-01-03] MEDS: NITROFURANTOIN/NITROFURAN MAC 100 MG CAPSULE PO SCH (21:00)
[2017-01-03] MEDS ORDERED: GUAIFENESIN 600 MG TABLET PO ONE (23:44)
[2017-01-03] MEDS: GUAIFENESIN 600 MG TABLET PO PRN (23:47)
--- NOTE | 2017-01-04 07:09 | EKG ---
[address] [address] Measurements Intervals [place] Rate: 93 P: 71 NH: 146 QRS: 69 QRSD: 100 T: 18 QT: 331 QTc: 381 Interpretive Statements SINUS RHYTHM NONSPECIFIC T-WAVE ABNORMALITY Compared to ECG 04/24/2015 21:57:56 Sinus tachycardia no longer present T-wave abnormality still present Electronically Signed On 01-04-17 08:02:42 MDT by Seymour Stone MD [email or web address]
--- NOTE | 2017-01-04 07:09 | DI ---
MRI SCANS OF THE ISCHIAL TUBEROSITIES WITHOUT AND WITH IV CONTRAST, 01/03/2017 3:06 PM: Clinical History: Ulceration over the left ischial tuberosity. Increased white count. This is a parap legic patient. Previous Exam: None at this facility. Technique: Axial and coronal T1 and T2-weighted precontrast scans. Postcontrast axial T1-weighted sca ns and pre-and postcontrast axial fat-saturated T1-weighted and postcontrast coronal and sagittal fat saturated T1-weighted scans. The patient is status post ORIF of the right hip. The patient has a chronic fracture of the left hip, probably originally through the neck but with reabsorption of the entire neck in the undersurface of the femoral head. There is a large left joint effusion. The region of the right ischial tuberosity i ncluding the superior pubic ramus is normal and is used as a control. On the left side, there is a la rge soft tissue ulcer directly over the left ischial tuberosity in the skin defect extends to within 13 mm of the left ischial tuberosity. The skin surrounding the ulcer in the soft tissues extending de ep to the issue tuberosities show enhancement. The left ischial tuberosity itself and the contiguous portion of the inferior pubic ramus show enhancement with IV contrast. This is consistent with osteom yelitis. There is no pelvic adenopathy. The bladder shows thickening of the trabecula. There is compl ete fatty infiltration of the muscles of the pelvic girdle consistent with paraplegia. Readin. There is a large ulceration extending from the skin surface of the left buttock region directly o chris the left ischial tuberosity and extending to within 13 mm of the ischial tuberosity. This ulcer t ract shows enhancement following contrast. The left ischial tuberosity and the posterior portion of t he inferior pubic ramus show enhancement, consistent with osteomyelitis. There is no extension toward the acetabulum. 2. Chronic fracture of the left hip, probably originally involving the neck with subsequent complete erosion of the neck and the inferior half of the femoral head. There is a large joint effusion. 3. Complete fatty infiltration and atrophy of all of the muscles of the pelvic girdle including the psoas muscles, consistent with the history of long-standing paraplegia. Trabeculation of the bladder is also related to the paraplegia.
--- NOTE | 2017-01-04 08:08 | PT.PROG ---
Progress Note Progress Note: 01/03/2017 2:00-3:30 S: pt. reports pain in his L shoulder. He stated it wazs bothering him this morning and has only worsened throughout the day. O: pt. performed 2 transfers over the course of his session and recieved some PROM on his L shoulder. A: pt. likely overworked his shoulder over the past few days causing a minor strain. He had no problem with PROM indicating the soreness is likely due to muscle activation. P: back off the exercise intensity next session to ensure the shoulder can recover properly.
[2017-01-04] MEDS: Multivitamin Tab 1 TAB PO SCH (08:23)
[2017-01-04] MEDS: ROTIGOTINE TRANSDERM SCH (08:23)
[2017-01-04] MEDS: ENOXAPARIN SODIUM 40 MG/0.4 ML SYRINGE SUBCUT SCH (08:23)
[2017-01-04] MEDS: ASCORBIC ACID 500 MG TABLET PO SCH ×2 (08:23→20:59)
[2017-01-04] MEDS: Metoprolol TARTRATE Tab 25 MG TAB PO SCH ×2 (08:23→20:59)
[2017-01-04] MEDS: FINASTERIDE 5 MG TABLET PO SCH (08:24)
--- NOTE | 2017-01-04 11:25 | OT.PROG ---
Progress Note Progress Note: S: pt reports that his shoulder feels much better today, he wants to hear the results of his MRI. O: pt was seen in his room in the a.m. He completed LE/UE dressing with max A x2. He then was transferred form bed to w/c with slide board, max A x2. pt completed shaving at sink INd. He completed 20 min on UE bike to increase activity tolerance. He completed standing in stander for up to 15 min. pt was returned to his room and was left with call light and phone within reach. A: pt's shoulder was much better today as he could use it to assist with transfers. He is worried about MRI results. P: continue per plan of care. transfer him to stander today in p.m. tx.
--- NOTE | 2017-01-04 11:56 | PT.PROG ---
Progress Note Progress Note: 01/04/2017 10:00-10:30 S: pt reports he is feeling good. His shoulder is less sore than it was yesterday and he is ready for PT O: pt performed press ups in his porsha 3x5, cable flexion and abd x20 he performed curls and tri. ext. x20. He was placed in the stander and over the course of his session performed 3 transfers. A: pt. seems to be in good spirits. He works extremely hard and does whatever is asked of him. His shoulder is feeling better so we should be cautious as to not irritate it again. P: continue to strengthen the muscles necessary for transfers, get him in the stander to gain the beneficial effects of an upright position, and work sitting balance.
[2017-01-04] MEDS: ZINC GLUCONATE 50 MG TABLET PO SCH (12:50)
--- NOTE | 2017-01-04 16:21 | PT PM DAY ---
Diagnosis : Left Ischial Tuberosity Ulcer PM - Physical Therapy S: Dr. Escudero called down to the physical therapy department and states due to elevated white blood cell count, he would like a visual inspection of the wound himself. O: Following completion of occupational therapy, the patient was brought back upstairs to his room where he required max assist x2 with a slide transfer board into bed. The wound vac was taken off and the physical therapist and the physician inspected the wound. The therapist spoke to the physician in regards to concerns about not all of the dressing being removed following his shower on Saturday; however, closer inspection of the wound following removal of the wound vac indicated healthy granulated tissue at this time. At this time the wound was dressed with a clean dressing of two pieces of sterile gauze with Mepilex in preparation of an MRI as ordered by the physician. Following completion of this, physical therapy was called and a wound vac was placed over the wound with three pieces of foam in the bridged vac to the anterior thigh. A: The wound at this time is clean and demonstrates appropriate growth. No changes in measurements were noted from yesterday's measurements. P: The therapist would like to get the patient on an established two to three times a week change of the wound vac schedule. The therapist discussed with the patient concerns of the excessive transferring as well as the standing chair in terms of maintaining an appropriate seal for the wound vac. Because the patient is hospitalized for the primary concern of wound healing, we may decrease his transfers in an attempt to maintain a better seal. DONTE
--- NOTE | 2017-01-04 16:36 | OT PM DAY ---
Diagnosis : Weakness PM - Occupational Therapy S: The patient states he wants to see the doctor. He states he is having problems with his eye; it is kind of red and kind of bothering him a little bit. He states he wants to see a doctor first before coming down for therapy. We returned to his room later. The patient states his left shoulder is hurting. O: The patient was seen in his room. He transferred from supine to edge of bed. And then completed onto the slide board with max assist x2. The patient transferred downstairs via wheelchair where he received micro-current massage to his left upper extremity to decrease pain. The patient received passive range of motion to his left upper extremity followed by Kinesio tape for rotator cuff support and retraction. The patient was assisted back to his room so the doctor could monitor and look at his wound. PT assisted with this. A: The patient is experiencing some left shoulder pain, possibly from trying to assist with transfers and all of the exercise he is completing. We will continue to use slide board at this time and try to limit any friction we are putting on his wound at this time to prevent any break down of the seal of the wound vac. P: Continue seeing patient BID during the week and one time per day over the weekend for upper extremity strengthening, ADLs, and overall functional mobility. DONTE
[2017-01-04] MEDS: Simvastatin Tab 40 MG TAB PO SCH (20:59)
[2017-01-04] MEDS: NITROFURANTOIN/NITROFURAN MAC 100 MG CAPSULE PO SCH (21:00)
[2017-01-04] MEDS: GUAIFENESIN 600 MG TABLET PO PRN (21:01)
[2017-01-05] MEDS: ROTIGOTINE TRANSDERM SCH (08:38)
[2017-01-05] MEDS: FINASTERIDE 5 MG TABLET PO SCH (08:39)
[2017-01-05] MEDS: ZINC GLUCONATE 50 MG TABLET PO SCH (08:39)
[2017-01-05] MEDS: Metoprolol TARTRATE Tab 25 MG TAB PO SCH ×2 (08:39→21:21)
[2017-01-05] MEDS: ENOXAPARIN SODIUM 40 MG/0.4 ML SYRINGE SUBCUT SCH (08:39)
[2017-01-05] MEDS: Multivitamin Tab 1 TAB PO SCH (08:39)
[2017-01-05] MEDS: Potassium Chloride Tab 10 MEQ TAB PO SCH (08:40)
[2017-01-05] MEDS: ASCORBIC ACID 500 MG TABLET PO SCH ×2 (08:40→21:21)
--- NOTE | 2017-01-05 10:32 | OT.PROG ---
Progress Note Progress Note: S: pt stated that he did want to get in stander today. He continues to be concerned about his time here as he may have to return to [place]. O: pt was seen in his room in the a.m. and was already dressed and completed his breakfast. He completed max A transfer x2 with slide board from bed to w/ c. He completed transfer downstairs in w/c and was transferred to stander max x2 where he stayed for up to 45 min. Once that was completed he received another transfer back to chair max A x2 and returned to his room and per request , he stayed in his chair. Therapy will return to see if he needs assistance back to bed. A: pt transferred well today on slide board. Continue to monitor shearing of wound vac during these transfers. P: continue per plan of care.
[2017-01-05] MEDS: NITROFURANTOIN/NITROFURAN MAC 100 MG CAPSULE PO SCH (21:21)
[2017-01-05] MEDS: Simvastatin Tab 40 MG TAB PO SCH (21:21)
[2017-01-05] MEDS: GUAIFENESIN 600 MG TABLET PO PRN (21:23)
[2017-01-06 06:29] LABS: HEMATOCRIT 35.3 % (42.0-52.0); HEMOGLOBIN 11.4 g/dL (14.0-18.0); MEAN CORPUSCULAR HEMOGLOBIN 29.3 PG (27-31); MEAN CORPUSCULAR HGB CONC 32.3 g/dL (33-37); MEAN CORPUSCULAR VOLUME 90.7 FL (80-90); MEAN PLATELET VOLUME 9.9 FL (7.4-12.2); RED BLOOD COUNT 3.89 10^6/uL (4.70-6.10)
[2017-01-06 06:30] LABS: BASOPHILS # (AUTO) 0.02 10*3/UL; BASOPHILS % (AUTO) 0.2 % (0-1); EOSINOPHILS # (AUTO) 0.29 10*3/UL; EOSINOPHILS % (AUTO) 3.2 % (0-8); LYMPHOCYTES # (AUTO) 1.81 10*3/uL; MONOCYTES # (AUTO) 1.14 10*3/UL (0.3-0.8); MONOCYTES % (AUTO) 12.5 % (5-15); NEUTROPHILS # (AUTO) 5.81 10*3/UL; NEUTROPHILS % (AUTO) 63.8 % (50-80); PLATELET MORPHOLOGY COMMENT NORMAL MORPHOLOGY (NORM); RBC MORPHOLOGY COMMENT NORMAL MORPHOLOGY (NORM); WBC MORPHOLOGY COMMENT NORMAL MORPHOLOGY (NORM)
[2017-01-06] MEDS: ASCORBIC ACID 500 MG TABLET PO SCH ×2 (09:16→20:54)
[2017-01-06] MEDS: Metoprolol TARTRATE Tab 25 MG TAB PO SCH ×2 (09:16→20:54)
[2017-01-06] MEDS: FINASTERIDE 5 MG TABLET PO SCH (09:16)
[2017-01-06] MEDS: Multivitamin Tab 1 TAB PO SCH (09:16)
[2017-01-06] MEDS: ZINC GLUCONATE 50 MG TABLET PO SCH (09:16)
[2017-01-06] MEDS: HYPROMELLOSE EACH EYE PRN (09:17)
[2017-01-06] MEDS: ROTIGOTINE TRANSDERM SCH (09:17)
[2017-01-06] MEDS: ENOXAPARIN SODIUM 40 MG/0.4 ML SYRINGE SUBCUT SCH (09:18)
[2017-01-06] MEDS: GUAIFENESIN 600 MG TABLET PO PRN ×2 (09:19→20:54)
--- NOTE | 2017-01-06 13:04 | OT.PROG ---
Progress Note Progress Note: S: pt stated he wanted to eat lunch with his family first and then he would be over for therapy. O: pt was transferred from w/c to stander max x2 and stood with supervision for up to an hour. While in chair worked on FM skills and problem solving/cognitive activities. Returned from stander to w/c with max A x2 and returned to his room , transferred to bed with max a x2. He was left in supine position with nursing present. A: pt displayed good activity tolerance up in his stander for an hr. He does not complain of pain in shoulder at this time. continue to monitor shearing of wound vac during transfers. P: continue per plan of care.
--- NOTE | 2017-01-06 18:20 | PDOC(PROG) ---
General Note Progress Note: We plan to place the patient back on some Sinemet by mouth as well as his patch. Apparently neurology in [place], [place], felt that the patient probably was not absorbing Sinemet via by mouth dosing. But the patient continues to complain that his hands are much weaker his arms overall don't respond quite as well and he's had increased weakness. So in addition to therapy, we will try to add back some Sinemet which apparently was attempted in [place] although I don't have notes on that from the physicians. So I don't know what the plan was there really. Plan is to increase Sinemet. Continue PT and OT and wound care therapy. Patient would like to concentrate on moving his legs more himself and adjust them in the chair. Discussed with his as well and she is aware. Plan for osteomyelitis is to have the patient revisit with infectious disease in [place], hopefully with Dr. Lyles as he is quite familiar with this patient from prior visits, and at that time it'll be determined if the patient would benefit from prophylactic antibiotics or just watchful waiting. Patient Problems - Patient Problem List (1) Left ischial pressure sore Current Visit: Yes Status: Acute Qualifiers: Pressure ulcer stage: stage 4 Qualified Description: Pressure sore of left ischial area, stage IV Qualifier Code(s): (L89.324) Pressure ulcer of left buttock, stage 4 (2) Paraplegia Current Visit: Yes Status: Chronic (3) Parkinson disease Current Visit: Yes Status: Acute (4) Hypercholesterolemia Current Visit: Yes Status: Chronic (5) Neurogenic bladder Current Visit: Yes Status: Chronic (6) Neurogenic bowel Current Visit: Yes Status: Chronic (7) Atrial flutter Current Visit: Yes Status: Acute Qualifiers: Atrial flutter type: unspecified Qualified Description: Atrial flutter , unspecified type Qualifier Code(s): (I48.92) Unspecified atrial flutter
[2017-01-06] MEDS: Carbidopa/Levodopa 25/100mg Tab PO SCH (20:54)
[2017-01-06] MEDS: NITROFURANTOIN/NITROFURAN MAC 100 MG CAPSULE PO SCH (20:54)
[2017-01-06] MEDS: Simvastatin Tab 40 MG TAB PO SCH (20:54)
[2017-01-07] MEDS: HYPROMELLOSE EACH EYE PRN (08:13)
[2017-01-07] MEDS: GUAIFENESIN 600 MG TABLET PO PRN ×2 (08:14→21:53)
[2017-01-07] MEDS: ROTIGOTINE TRANSDERM SCH (08:14)
[2017-01-07] MEDS: FINASTERIDE 5 MG TABLET PO SCH (08:14)
[2017-01-07] MEDS: Multivitamin Tab 1 TAB PO SCH (08:14)
[2017-01-07] MEDS: Potassium Chloride Tab 10 MEQ TAB PO SCH (08:14)
[2017-01-07] MEDS: ZINC GLUCONATE 50 MG TABLET PO SCH (08:14)
[2017-01-07] MEDS: Metoprolol TARTRATE Tab 25 MG TAB PO SCH ×2 (08:14→21:19)
[2017-01-07] MEDS: ASCORBIC ACID 500 MG TABLET PO SCH ×2 (08:15→21:19)
[2017-01-07] MEDS: Carbidopa/Levodopa 25/100mg Tab PO SCH ×2 (08:15→21:19)
--- NOTE | 2017-01-07 11:17 | OT.PROG ---
Progress Note Progress Note: S; pt stated he wanted to get in stander again and he understands that he needs to stay off of wound as much as possible. O: pt was seen in his room today and completed max A transfer x2 from bed to w/ c. He completed aDL shaving at sink Ind. He then completed UE exercises to increase strength to assist with transfers. He then transferred to stander with Mod A x2 and was up for 60 min. While he was up he participated in FM tasks and cognitive problem solving activity. He was returned to his room and transferred to be with Max A x2. A: Pt assisted with transfer much better today from w/c to stander and tolerated another hour of standing activity. He continues to be motivated for therapy and helps as much as he can. P: continue per plan of care. monitor shearing of wound vac during transfers
[2017-01-07] MEDS: NITROFURANTOIN/NITROFURAN MAC 100 MG CAPSULE PO SCH (21:19)
[2017-01-07] MEDS: Simvastatin Tab 40 MG TAB PO SCH (21:19)
[2017-01-08 05:04] LABS: BASOPHILS # (AUTO) 0.02 10*3/UL; BASOPHILS % (AUTO) 0.2 % (0-1); EOSINOPHILS # (AUTO) 0.31 10*3/UL; HEMATOCRIT 35.5 % (42.0-52.0); HEMOGLOBIN 11.5 g/dL (14.0-18.0); MEAN CORPUSCULAR HEMOGLOBIN 29.4 PG (27-31); MEAN CORPUSCULAR HGB CONC 32.4 g/dL (33-37); MEAN CORPUSCULAR VOLUME 90.8 FL (80-90); MEAN PLATELET VOLUME 9.8 FL (7.4-12.2); MONOCYTES # (AUTO) 0.97 10*3/UL (0.3-0.8); MONOCYTES % (AUTO) 9.3 % (5-15); NEUTROPHILS # (AUTO) 7.35 10*3/UL; NEUTROPHILS % (AUTO) 70.7 % (50-80); RED BLOOD COUNT 3.91 10^6/uL (4.70-6.10)
[2017-01-08 05:05] LABS: PLATELET MORPHOLOGY COMMENT NORMAL MORPHOLOGY (NORM); RBC MORPHOLOGY COMMENT NORMAL MORPHOLOGY (NORM); WBC MORPHOLOGY COMMENT NORMAL MORPHOLOGY (NORM)
[2017-01-08] MEDS: Carbidopa/Levodopa 25/100mg Tab PO SCH ×2 (08:43→21:08)
[2017-01-08] MEDS: HYPROMELLOSE EACH EYE PRN (08:43)
[2017-01-08] MEDS: Multivitamin Tab 1 TAB PO SCH (08:43)
[2017-01-08] MEDS: ROTIGOTINE TRANSDERM SCH (08:44)
[2017-01-08] MEDS: Metoprolol TARTRATE Tab 25 MG TAB PO SCH ×2 (08:44→21:08)
[2017-01-08] MEDS: FINASTERIDE 5 MG TABLET PO SCH (08:44)
[2017-01-08] MEDS: ZINC GLUCONATE 50 MG TABLET PO SCH (08:44)
[2017-01-08] MEDS: ASCORBIC ACID 500 MG TABLET PO SCH ×2 (08:44→21:08)
--- NOTE | 2017-01-08 10:50 | PT AM DAY ---
Diagnosis : Left Ischial Tuberosity Ulcer AM - Physical Therapy S: The nursing staff contacted the therapist late Saturday night, stating they were having a problem with the wound vac maintaining its seal. They attempted to reinforce it with additional Tegaderm; however, it was still leaking. They stated at this time they had turned it off. Per suggestion of the physical therapist, the wound vac was turned off and the dressing was removed and a clean dressing was applied on Saturday. O: First thing Saturday the wound vac was reapplied with two pieces of black foam. Additional measurements were taken. The tunneling at this time is 6.3 centimeters and the depth is 4.8. The length and width of the opening is 2 centimeters x 3.5 centimeters today. The canister was changed and it had a moderate amount of drainage. A: The wound measurements appeared variable, depending upon the position that the patient was in, as well as how taut the skin was being pulled. According to the patient, he may be going to [place] on Saturday with an appointment with Dr. Lyles. P: Continue seeing patient BID during the week and one time per day over the weekend for wound vac changes. DONTE
--- NOTE | 2017-01-08 11:29 | PDOC(PROG) ---
Date and Time of Service: 01/08/2017 11:26 AM Interval History: Subjective Patient is denying new symptoms, he has some nasal congestion he said for period of time. he tried the Mucinex and this is not helping him much he said. After we transferred him to [place] he said they did do some debridement put him on antibiotics for total about 5-6 weeks. They transferred him from their hospital to [place] and now he is here to continue wound care. He said they did aspirate some of the fluid in his left hip and was told it was not infected and that was done in [place]. Objective : Data - Labs CBC and BMP: 01/08/17 04:19 01/02/17 04:32 Labs - Last 24 Hours: Laboratory Results 01/08/17 Range/Units 04:19 WBC 10.40 (4.8-10.8) 10^3/uL RBC 3.91 L (4.70-6.10) 10^6/uL Hgb 11.5 L (14.0-18.0) g/dL Hct 35.5 L (42.0-52.0) % MCV 90.8 H (80-90) FL MCH 29.4 (27-31) PG MCHC 32.4 L (33-37) g/dL RDW Std Deviation 49.1 (39-50) fL RDW Coeff of Elder 15.0 H (11.5-14.5) % Plt Count 424 H (140-350) 10*3/uL MPV 9.8 (7.4-12.2) FL Immature Gran % (Auto) 0.5 (0-5) % Neut % (Auto) 70.7 (50-80) % Lymph % (Auto) 16.3 (10-50) % Blount % (Auto) 9.3 (5-15) % Eos % (Auto) 3.0 (0-8) % Baso % (Auto) 0.2 (0-1) % Immature Gran # (Auto) 0.05 10*3/UL Neut # (Auto) 7.35 10*3/UL Lymph # (Auto) 1.70 10*3/uL Blount # (Auto) 0.97 H (0.3-0.8) 10*3/UL Eos # (Auto) 0.31 10*3/UL Baso # (Auto) 0.02 10*3/UL WBC Morphology Comment Normal morphology (NORM) Plt Morphology Comment Normal morphology (NORM) RBC Morph Comment Normal morphology (NORM) Objective : Exam - General General Appearance: No Acute Distress, Cooperative - Head Head Exam: Normal Inspection - Eye Eye Exam: Normal Appearance - ENT ENT Exam: Normal Exam - Neck Neck Exam: Normal Inspection - Respiratory Respiratory Exam: Clear to Auscultation - Bilaterally - Cardiovascular Cardiovascular Exam: RRR - GI/Abdominal GI/Abdominal Exam: Normal Bowel Sounds, Non Tender, Non Distended, Soft - Rectal Rectal Exam: Deferred - External Exam: Deferred - Extremities Additional Extremities Exam Details: Unchanged with paraplegia - Psychiatric Psychiatric Exam: Normal Affect - Integumentary Additional Integumentary Exam Details: Decubitus left ischial tuberosity ulcer noted, depth is about 6.3 cm width 2 x 3 Assessment and Plan - Patient Problems (1) Left ischial pressure sore Current Visit: Yes Status: Acute Comment: Continue wound VAC treatment. We'll try to get an appointment for him with Dr. Lyles as an outpatient. Qualifiers: Pressure ulcer stage: stage 4 Qualified Description: Pressure sore of left ischial area, stage IV Qualifier Code(s): (L89.324) Pressure ulcer of left buttock, stage 4 (2) Parkinson disease Current Visit: Yes Status: Acute Comment: Same med (3) Atrial flutter Current Visit: Yes Status: Acute Comment: Continue metoprolol Qualifiers: Atrial flutter type: unspecified Qualified Description: Atrial flutter , unspecified type Qualifier Code(s): (I48.92) Unspecified atrial flutter
[2017-01-08] MEDS ORDERED: FLUTICASONE PROPIONATE 16 GRAM (120 SPRAYS / BOTTLE) ENOS SCH (11:30)
--- NOTE | 2017-01-08 12:55 | OT PM DAY ---
Diagnosis : Weakness PM - Occupational Therapy S: The patient reports no significant changes. O: The therapist assisted with bed turning as well as bed mobility with max assist. The patient sat up in bed and doffed his shirt with min assist. The patient was dependent with doffing pants. The patient completed bed rolling with max assist. A: The patient still requires assistance with bed mobility and trying to find the best position for his wound healing. P: Continue seeing patient BID during the week and one time per day over the weekend until discharge. MTDD
--- NOTE | 2017-01-08 13:20 | OT.PROG ---
Progress Note Progress Note: S: pt was happy to get a shower. He still wants to keep working out if possible. O: pt was seen in his room for preparation to shower. He completed max A transfer x2 to shower chair. When pt finished shower with assistance from nursing, he was transferred back to bed with Max A transfer x2 and completed ADL dressing with UE Min A and LE dressing max A. A: pt continues to show desire to improved and stay active. Continue to monitor wound vac during transfers. P: continue per plan of care.
--- NOTE | 2017-01-08 16:19 | PT.PROG ---
Progress Note Progress Note: 01/08/2107 3:30-4:00 S: pt. is feeling good, he states he was about to take a nap but is ready for PT O: pt. was transferred 3x over the course of the session. He was placed in a stander for 45 min where he practiced cognitive tasks A: Pt. continues to display a great attitude and effort towards therapy P: continue to work to improve his functional abilities within the confines of protecting his wound.
[2017-01-08] MEDS: GUAIFENESIN 600 MG TABLET PO PRN (21:08)
[2017-01-08] MEDS: NITROFURANTOIN/NITROFURAN MAC 100 MG CAPSULE PO SCH (21:08)
[2017-01-08] MEDS: Simvastatin Tab 40 MG TAB PO SCH (21:09)
[2017-01-09] MEDS: FLUTICASONE PROPIONATE 16 GRAM (120 SPRAYS / BOTTLE) ENOS SCH ×2 (09:13→20:38)
[2017-01-09] MEDS: Metoprolol TARTRATE Tab 25 MG TAB PO SCH ×2 (09:14→20:39)
[2017-01-09] MEDS: Carbidopa/Levodopa 25/100mg Tab PO SCH ×2 (09:14→20:39)
[2017-01-09] MEDS: ASCORBIC ACID 500 MG TABLET PO SCH ×2 (09:15→20:39)
[2017-01-09] MEDS: FINASTERIDE 5 MG TABLET PO SCH (09:15)
[2017-01-09] MEDS: Multivitamin Tab 1 TAB PO SCH (09:15)
[2017-01-09] MEDS: ZINC GLUCONATE 50 MG TABLET PO SCH (09:15)
[2017-01-09] MEDS: ROTIGOTINE TRANSDERM SCH (09:18)
[2017-01-09] MEDS: Potassium Chloride Tab 10 MEQ TAB PO SCH (09:20)
--- NOTE | 2017-01-09 11:32 | OT.PROG ---
Progress Note Progress Note: S: pt said he is feeling good today. and pt mentioned they have noticed changes in strength in upper extremities when sitting in bed or putting pants on. There was also a deficit in hand strength compared to when pt was at home. O: pt needed max A with putting pants on and mod A with putting his shirt on. He did assist with rolling from side to side, but needed max. A to move LE's to sidelye position. pt needed max A with transfer from bed to wheel chair. When therapist came to therapy gym, he did complete 3 min. of weight shift in PW. Pt completed Upper extremely exercises which included: wall pulleys with 40# for shoulder extension, adduction, rows X 1 min. each ex with B UE's. New hand strengthening exercises were also added to exercise program blue putty for gross grasp and tip pinches, blue power web and blue insurance sales executive master X 1 min each with B hands. A: pt needs to continue with current upper extremities exercises to improve functional bed mobility and ADL's while in bed P: continue with current plan of care
--- NOTE | 2017-01-09 11:44 | PT.PROG ---
Progress Note Progress Note: 01/09/2017 11:00-11:30 S: pt. reports that he did have some trouble sleeping last night, but did sleep well this morning. He states he feels better than he did yesterday. O: pt. performed functional UE strength exercises to help improve his ability to transfer and reach OH. He stated that he had some soreness in her L arm. Session was cut short due to the work he had put into OT and he was hungry for lunch A: pt. tolerates exercise well and is improving in his strength. He continues to display a good attitude towards PT. P: continue to progress his abilities in functional activities (transfers/ sitting balance) w/o compromising wound integrity
--- NOTE | 2017-01-09 12:52 | PT PM DAY ---
Diagnosis : Left Ischial Tuberosity Ulcer PM - Physical Therapy S: According to nursing staff, they are having problems maintaining an appropriate seal on his wound vac and they would like to give him a shower. They state they will contact physical therapy when they are finished with the shower. Furthermore, Dr. Smyth would like to take a look at the wound once the dressing is removed. O: Therapy this afternoon consisted of a wound vac dressing change to the left ischial tuberosity. Dr. Smyth was present at the time of the dressing being taken off and removed. The tunnel at this time measures 6.5 centimeters and it continues to be 5.0 centimeters deep with the wound opening itself measuring 2.0 centimeters x 3.5 centimeters. The wound presents with a moderate odor with 25% occlusion of the wound vac canister. The wound was redressed with the wound vac with two pieces of black foam and was placed on 125 millimeters of Mercury. The wound vac demonstrated an appropriate seal following application. A: The therapist did discuss with the patient decreasing his transfers in a better attempt to maintain an appropriate seal on the wound vac as well as placing him on a shower schedule to be done immediately before having the dressing changed. The therapist had also spoken with the patient's spouse in terms of reinforcing the dressing for better maintenance of the seal as was done in [place]. P: Continue seeing patient BID during the week and one time per day over the weekend depending on the quality of the seal with the wound vac. DONTE
--- NOTE | 2017-01-09 14:14 | OT PM DAY ---
Diagnosis : Weakness/Paraplegia PM - Occupational Therapy S: The patient states he is just not feeling very well but he is unsure why. O: The patient was upright in his wheelchair upon the therapist's arrival. He transferred from wheelchair to bed with max assist x2. Bed mobility was completed with max assist x2. The patient was left supine in bed with call light within reach and bed alarm on. A: The patient appeared fatigued today and was not feeling the best after he received his haircut. P: Continue seeing patient BID during the week and one time per day over the weekend for upper extremity strengthening, ADLs, and overall functional mobility. MTDD
--- NOTE | 2017-01-09 14:34 | PT.PROG ---
Progress Note Progress Note: 01/09/2017 1:00-1:30 S: pt. reports feeling good after this mornings session. pt. states he wants to work his core muscles and get into the stander. O: pt. performed seated balance exercises including static sitting balance, reaching, perturbations, catching and throwing a soft ball and a 2# ball. pt. then transferred into a stander. He performed cognitive and fine motor exercises in the stander A: pt. has improved in his sitting balance compared to previous efforts. He does a good job of using his UE to maintain his balance. He does seem to be transferring a bit easier but could still use some work on improving this skill P: continue to work on his sitting balance, increase to 3# ball and use more intense perturbations. continue to emphasize the importance of functional tasks like transfers.
[2017-01-09] MEDS: NITROFURANTOIN/NITROFURAN MAC 100 MG CAPSULE PO SCH (20:39)
[2017-01-09] MEDS: Simvastatin Tab 40 MG TAB PO SCH (20:39)
[2017-01-10 06:26] LABS: BASOPHILS # (AUTO) 0.02 10*3/UL; BASOPHILS % (AUTO) 0.2 % (0-1); EOSINOPHILS # (AUTO) 0.34 10*3/UL; HEMATOCRIT 36.3 % (42.0-52.0); HEMOGLOBIN 11.9 g/dL (14.0-18.0); LYMPHOCYTES # (AUTO) 2.01 10*3/uL; MEAN CORPUSCULAR HEMOGLOBIN 29.5 PG (27-31); MEAN CORPUSCULAR HGB CONC 32.8 g/dL (33-37); MEAN CORPUSCULAR VOLUME 89.9 FL (80-90); MEAN PLATELET VOLUME 9.4 FL (7.4-12.2); MONOCYTES # (AUTO) 1.28 10*3/UL (0.3-0.8); MONOCYTES % (AUTO) 11.2 % (5-15); NEUTROPHILS # (AUTO) 7.72 10*3/UL; NEUTROPHILS % (AUTO) 67.4 % (50-80); RED BLOOD COUNT 4.04 10^6/uL (4.70-6.10)
[2017-01-10 06:28] LABS: PLATELET MORPHOLOGY COMMENT NORMAL MORPHOLOGY (NORM); RBC MORPHOLOGY COMMENT NORMAL MORPHOLOGY (NORM); WBC MORPHOLOGY COMMENT NORMAL MORPHOLOGY (NORM)
[2017-01-10] MEDS: Metoprolol TARTRATE Tab 25 MG TAB PO SCH ×2 (08:58→20:14)
[2017-01-10] MEDS: FINASTERIDE 5 MG TABLET PO SCH (08:58)
[2017-01-10] MEDS: ZINC GLUCONATE 50 MG TABLET PO SCH (08:59)
[2017-01-10] MEDS: ASCORBIC ACID 500 MG TABLET PO SCH ×2 (08:59→20:14)
[2017-01-10] MEDS: Carbidopa/Levodopa 25/100mg Tab PO SCH ×2 (08:59→20:14)
[2017-01-10] MEDS: Multivitamin Tab 1 TAB PO SCH (08:59)
[2017-01-10] MEDS: FLUTICASONE PROPIONATE 16 GRAM (120 SPRAYS / BOTTLE) ENOS SCH ×2 (08:59→20:13)
[2017-01-10] MEDS: ROTIGOTINE TRANSDERM SCH (09:00)
--- NOTE | 2017-01-10 11:33 | PT.PROG ---
Progress Note Progress Note: 02/09/2017 11:00-11:30 S: pt. reports hat his body is feeling good. He states his L shoulder is feeling better but he can still feel it on occasion O: pt. performed scapular depressing exercises with bands, press ups in his chair, cable add., cable press, flexion, cable bar pull down to tri ext, and db lateral raises. 40# on all except for cable bar 115#. A: pt. performed exercises well, but seemed to tire quickly. He needs to continue to strengthen muscles in his UE that he needs for transfers. P: progress exercises in weight. He needs to be doing 12 reps or less.
--- NOTE | 2017-01-10 11:38 | OT.PROG ---
Progress Note Progress Note: S: pt states that he feels good, and that he got mostly dressed by himself today only having difficulty with pants above the knees. O: pt was seen in his room and he completed transfer on slide board with min A x2 to maintain safety. Pt completed ADL's at sink Ind and transfer downstairs in w/c Ind. He completed 20 min on UE bike to increase activity tolerance. A: pt has improved his ability to transfer with slide board. He would continue to benefit from therapy to increase UE strength to assist with transfers. continue to monitor transfers to protect wound vac from shearing. P: pt will be seen in late morning, and early afternoon to decrease amount of transfers completed to protect wound vac.
--- NOTE | 2017-01-10 14:40 | PT.PROG ---
Progress Note Progress Note: 01/10/2017 2:00-2:30 S: pt. reports feeling ready for PT. he wants to get in the stander and go outside for a little. O: pt. worked on seated balance with perturbations followed by seated balance with boxing for 4 1 min bouts. He was then put into the stander and performed fine motor and cognitive tasks for 50 min A: pt. did seem to tire quickly today in both sessions, some good sleep tonight should help him perform well tomorrow. P: progress seated balance activities, perform an extra round of boxing, and if the wound is safe work on transfers.
[2017-01-10] MEDS ORDERED: HYDROmorphone 2 MG/1 ML ONE (18:47)
[2017-01-10] MEDS: NITROFURANTOIN/NITROFURAN MAC 100 MG CAPSULE PO SCH (20:14)
[2017-01-10] MEDS: Simvastatin Tab 40 MG TAB PO SCH (20:14)
[2017-01-11] MEDS: FLUTICASONE PROPIONATE 16 GRAM (120 SPRAYS / BOTTLE) ENOS SCH ×2 (08:21→21:40)
[2017-01-11] MEDS: Potassium Chloride Tab 10 MEQ TAB PO SCH (08:21)
[2017-01-11] MEDS: ROTIGOTINE TRANSDERM SCH (08:22)
[2017-01-11] MEDS: Multivitamin Tab 1 TAB PO SCH (08:22)
[2017-01-11] MEDS: Carbidopa/Levodopa 25/100mg Tab PO SCH ×2 (08:22→21:41)
[2017-01-11] MEDS: Metoprolol TARTRATE Tab 25 MG TAB PO SCH ×2 (08:22→21:40)
[2017-01-11] MEDS: ASCORBIC ACID 500 MG TABLET PO SCH ×2 (08:22→21:41)
[2017-01-11] MEDS: ZINC GLUCONATE 50 MG TABLET PO SCH (08:23)
[2017-01-11] MEDS: FINASTERIDE 5 MG TABLET PO SCH (09:29)
--- NOTE | 2017-01-11 11:07 | OT PM DAY ---
Diagnosis : Left Ischial Tuberosity Ulcer PM - Occupational Therapy S: The patient reports that he was pretty tired after his physical therapy session. O: Today we worked on functional bed mobility. Prior to admission the patient was independently able to grab a rope in his bed and pull himself from supine to sit. We simulated this activity and the patient did need repositioned three different times before we got him in the exact position so that he could perform this task. Also, at home the patient is usually in a flat bed. Today we did angle the head of the bed at 45 degrees for the first four repetitions. The patient was able to use his right upper extremity to placed his forearm on the bed and use his left arm to pull himself to a sitting position. The patient did need several attempts as he does demonstrate some weakness in the upper extremities. The patient then had the bed angled at a 30 degree position and he performed two different repetitions of coming from a supine to a sitting position with the simulated pull on the rope. The patient does need a little bit of assistance when moving from supine to sitting when at home. A: The patient still requires assistance for bed mobility. We are working toward more independence to improve his abilities to dress self in bed and to complete the supine to sit functional transfer before he returns home. P: Continue seeing patient BID during the week and one time per day over the weekend for upper extremity strengthening, ADLs, and overall functional mobility. MTDD
--- NOTE | 2017-01-11 14:14 | PT.PROG ---
Progress Note Progress Note: 01/11/2017 11:30-12:00 S: pt. complained of having chills this morning, his temperature was 98.4. He state he felt better after getting moving O: pt. performed band scapular depression, press ups 2x5 DB lat raises 2x10 8#, cable press 2x15 35#, cable adduction x15 50#, cable row 50# x15 A: pt. was weaker today, it could have something to do with the chills, but he does seem a little off. P: make sure he gets to feeling better and progress his strength training.
--- NOTE | 2017-01-11 14:18 | PT.PROG ---
Progress Note Progress Note: 01/11/2017 1:30-2:00 S: pt. reports his chills have gotten worse after lunch. He was not very hungry during lunch and says he ate very little. He is feeling tired and would like to just focus on hand work this afternoon. O: pt. performed putty squeezimg activity, flex bar exercises, and power web activity. A: pt. performed all activities asked of him but looked like he was exhausted and not feeling well during. pt. needs some rest. P: progress activities as tolerated
--- NOTE | 2017-01-11 15:37 | OT.PROG ---
Progress Note Progress Note: S: pt stated he was ready for shower. He was in good spirits this morning. O: Pt was assisted to his shower chair with Max A x 2. He was transferred to shower in chair. He completed showering with mOd A, mainly with LE's. He dried UE Ind and LE Max A. He was returned to his room and was transferred back to his bed with Max A x2. OT assisted with debridement and wound vac. OT returned later and completed ADL dressing. He completed UE dressing with supervision and LE dressing with Min A. pt was the transferred from bed to w/c with min A and returned downstairs in w/c where he completed 20 min On UE bike to increase activity tolerance. A: pt participated and assisted with transfers much better today. He continues to demonstrated willingness to participate fully and driven to improve. Continue to monitor wound vac. P: continue per plan of care.
--- NOTE | 2017-01-11 16:12 | PT PM DAY ---
Diagnosis : Left Ischial Tuberosity Ulcer PM - Physical Therapy S: According to occupational therapy, they are noticed when they finished up with their treatment, his wound vac seal was compromised. O: Today's therapy consisted of performing ADLs for the patient while in bed to remove the lower extremity clothing followed by extensive transfers to get him on his side and to apply reinforcement dressings to the area of the wound site. A: The therapist continues to be concerned with the lack of maintaining a continued seal on the wound vac. Due to the wound's location on the left ischial tuberosity, the amount of viable skin to apply the dressing between the wound and the anus as well as the wound and the scrotum is minimal. The therapist would like to see if we can get this dressing to hold until Saturday, at which point the dressing will be removed for showering purposes and then immediately reapplied. P: Continue seeing patient on a PRN basis for wound care. DONTE
--- NOTE | 2017-01-11 16:30 | OT PM DAY ---
Diagnosis : Weakness PM - Occupational Therapy S: The patient reports he is a little tired following his physical therapy session. O: The patient performed power web, digi-flex, putty exercises for hand strength, and fine motor manipulation tasks. We attempted having the patient transfer from supine to sit while in bed; we were only able to get two repetitions in as the patient was fatigued from his physical therapy session. A: The patient will continue to benefit from hand and upper extremity strengthening as well as bed mobility. P: Continue seeing patient BID during the week and one time per day over the weekend for upper extremity strengthening, ADLs, and overall functional mobility. DONTE
[2017-01-11] MEDS: Simvastatin Tab 40 MG TAB PO SCH (21:40)
[2017-01-11] MEDS: NITROFURANTOIN/NITROFURAN MAC 100 MG CAPSULE PO SCH (21:40)
[2017-01-12 05:18] LABS: BASOPHILS # (AUTO) 0.03 10*3/UL; BASOPHILS % (AUTO) 0.2 % (0-1); EOSINOPHILS # (AUTO) 0.23 10*3/UL; EOSINOPHILS % (AUTO) 1.8 % (0-8); HEMATOCRIT 32.7 % (42.0-52.0); HEMOGLOBIN 10.6 g/dL (14.0-18.0); LYMPHOCYTES # (AUTO) 1.34 10*3/uL; MEAN CORPUSCULAR HEMOGLOBIN 29.1 PG (27-31); MEAN CORPUSCULAR HGB CONC 32.4 g/dL (33-37); MEAN CORPUSCULAR VOLUME 89.8 FL (80-90); MEAN PLATELET VOLUME 9.7 FL (7.4-12.2); MONOCYTES # (AUTO) 1.17 10*3/UL (0.3-0.8); MONOCYTES % (AUTO) 8.9 % (5-15); NEUTROPHILS # (AUTO) 10.32 10*3/UL; NEUTROPHILS % (AUTO) 78.6 % (50-80); RED BLOOD COUNT 3.64 10^6/uL (4.70-6.10)
[2017-01-12 05:22] LABS: PLATELET MORPHOLOGY COMMENT NORMAL MORPHOLOGY (NORM); RBC MORPHOLOGY COMMENT NORMAL MORPHOLOGY (NORM); WBC MORPHOLOGY COMMENT NORMAL MORPHOLOGY (NORM)
[2017-01-12 05:35] LABS: BUN/CREATININE RATIO 52.85 (6-20); CALCIUM 9.8 mg/dL (8.7-10.7); SERUM ALBUMIN 2.9 g/dL (3.5-4.8)
[2017-01-12] MEDS: ROTIGOTINE TRANSDERM SCH (08:08)
[2017-01-12] MEDS: FLUTICASONE PROPIONATE 16 GRAM (120 SPRAYS / BOTTLE) ENOS SCH ×2 (08:10→21:15)
[2017-01-12] MEDS: Carbidopa/Levodopa 25/100mg Tab PO SCH ×2 (08:11→21:15)
[2017-01-12] MEDS: ASCORBIC ACID 500 MG TABLET PO SCH ×2 (08:11→21:15)
[2017-01-12] MEDS: FINASTERIDE 5 MG TABLET PO SCH (08:11)
[2017-01-12] MEDS: Multivitamin Tab 1 TAB PO SCH (08:11)
[2017-01-12] MEDS: Metoprolol TARTRATE Tab 25 MG TAB PO SCH ×2 (08:12→21:15)
[2017-01-12] MEDS: ZINC GLUCONATE 50 MG TABLET PO SCH (08:12)
--- NOTE | 2017-01-12 11:52 | PDOC(PROG) ---
Date and Time of Service: 01/12/2017 11:48 AM Interval History: Subjective Patient denying new symptoms. Objective : Data - Labs CBC and BMP: 01/12/17 04:32 01/12/17 04:32 Labs - Last 24 Hours: Laboratory Results 01/12/17 Range/Units 04:32 WBC 13.13 H (4.8-10.8) 10^3/uL RBC 3.64 L (4.70-6.10) 10^6/uL Hgb 10.6 L (14.0-18.0) g/dL Hct 32.7 L (42.0-52.0) % MCV 89.8 (80-90) FL MCH 29.1 (27-31) PG MCHC 32.4 L (33-37) g/dL RDW Std Deviation 47.6 (39-50) fL RDW Coeff of Elder 15.0 H (11.5-14.5) % Plt Count 451 H (140-350) 10*3/uL MPV 9.7 (7.4-12.2) FL Immature Gran % (Auto) 0.3 (0-5) % Neut % (Auto) 78.6 (50-80) % Lymph % (Auto) 10.2 (10-50) % Garrett % (Auto) 8.9 (5-15) % Eos % (Auto) 1.8 (0-8) % Baso % (Auto) 0.2 (0-1) % Immature Gran # (Auto) 0.04 10*3/UL Neut # (Auto) 10.32 10*3/UL Lymph # (Auto) 1.34 10*3/uL Garrett # (Auto) 1.17 H (0.3-0.8) 10*3/UL Eos # (Auto) 0.23 10*3/UL Baso # (Auto) 0.03 10*3/UL WBC Morphology Comment Normal morphology (NORM) Plt Morphology Comment Normal morphology (NORM) RBC Morph Comment Normal morphology (NORM) Sodium 134 L (135-145) meq/L Potassium 3.7 L (3.8-5.2) meq/L Chloride 105 (98-112) meq/L Carbon Dioxide 20 L (23-33) meq/L Anion Gap 9 (5-20) BUN 37 H (7-22) mg/dL Creatinine 0.7 (0.70-1.50) mg/dL Estimated GFR (>60 ml/min/1.73m(2)) BUN/Creatinine Ratio 52.85 H (6-20) Glucose 102 (78-110) mg/dL Calculated Osmolality 286.0 (267-292) mOsm/kg Calcium 9.8 (8.7-10.7) mg/dL Total Bilirubin 0.7 (0.3-1.2) mg/dL AST 36 (21-57) IU/L ALT 15 L (21-72) IU/L Alkaline Phosphatase 97 (38-126) IU/L Total Protein 6.2 (6.1-8.0) g/dL Albumin 2.9 L (3.5-4.8) g/dL Globulin 3.3 (2.50-4.10) g/dL Albumin/Globulin Ratio 0.80 L (1.3-2.0) mg/g Objective : Exam - General General Appearance: No Acute Distress, Cooperative, Obese - Head Head Exam: Normal Inspection, Atraumatic - Eye Eye Exam: Normal Appearance - ENT ENT Exam: Normal Exam - Neck Neck Exam: Normal Inspection - Respiratory Respiratory Exam: Clear to Auscultation - Bilaterally - Cardiovascular Cardiovascular Exam: RRR - Extremities Extremities Exam: Normal Inspection - Neurological Neurological Exam: Alert, Oriented x 3, No Facial Droop Additional Neurological Exam Details: Paraplegia unchanged from before - Integumentary Additional Integumentary Exam Details: The base of the wound shows necrosis its dark black color, I don't see surrounding cellulitis. Assessment and Plan - Patient Problems (1) Left ischial pressure sore Current Visit: Yes Status: Acute Comment: I don't think it's healing well, discussed with the physical therapist , she has the idea of maybe trying wet-to-dry dressing twice a day and see whether that would help to remove the devitalized tissue. I think we'll try that if no improvement may need to speak with Dr. Waggoner about needing debridement. We did book the patient with Dr. Lyles on January 18. Qualifiers: Pressure ulcer stage: stage 4 Qualified Description: Pressure sore of left ischial area, stage IV Qualifier Code(s): (L89.324) Pressure ulcer of left buttock, stage 4 (2) Parkinson disease Current Visit: Yes Status: Acute Comment: Same med (3) Atrial flutter Current Visit: Yes Status: Acute Comment: Same med Qualifiers: Atrial flutter type: unspecified Qualified Description: Atrial flutter , unspecified type Qualifier Code(s): (I48.92) Unspecified atrial flutter
--- NOTE | 2017-01-12 14:30 | CONSULT ---
Consult Note - Consult Consult Date: 01/12/17 Reason for Consult: PreOp Consulation : General Surgery Requesting Physician: Dr. Smyth Primary Care Provider: Roge Neves MD - History of Present Illness History of Present Illness: Patient is a 76-year-old male who is a T12 paraplegic who I saw back on October. Please refer to that consult note. Patient was transferred to [facility] and underwent a debridement of a grade 4 decubitus ulcer over the left initial tuberosity. He was in [place] at an extended care facility for long- term antibiotics. He was sent here to a swing bed for ongoing wound care. The physical therapist was worried about the wound. I am asked see him for the same. The wound has been open since the middle of October. Patient has no sensation. He had a remote flap done on the right side. The plan this time was to heal it with a wound VAC. Apparently he had an MRI done which documented osteomyelitis. He has a follow-up appointment with infectious disease on January 18. I am asked to see him about possible debridement of necrotic tissue. Past Medical History Medical History: 1. T12 paraplegia2. Neurogenic bowel and neurogenic bladder. He is status post diverting ostomy and does self-catheterization at home.3. Hypertension4. Chronic and recurrent urinary tract infection5. Obstructive sleep apnea, on CPAP6. Hypercholesterolemia7. History of DVT8. History of atrial flutter 9. History of Pseudomonas bacteremia in 2014 was treated with antibiotics for 3 weeks. 10. Parkinsonism, on when necessary Sinemet, mostly taken at night. Surgical History: 1. Ventriculostomy. 2. Back surgery including Hanson rods , back surgery overall x4. 3. Cholecystectomy in March of 2014. 4. EGD with duodenal ulcer in May 2015. 5. Right rib resection with a benign tumor. 6. Right carotid endarterectomy. 7. Right shoulder surgery. 8. Colostomy. 9. Myocutaneous flap right initial tuberosity. Pertinent Family History: Father of heart problems. Mother of old age. One sibling of a stroke. Past Social History: Does not smoke. Drinks occasionally. 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 Has 2 children described as healthy. 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 Tobacco Use: Former Smoker Substance Use Type: None Alcohol Use: Occasionally Medication / Allergies Home Medications: Home Medications Medication Instructions Recorded Confirmed Type Simvastatin 40 mg PO QD tab 03/15/14 12/31/16 History Finasteride 5 mg PO DAILY 07/12/15 12/31/16 History Ascorbic Acid [Vitamin C] 1 tab PO BID #0 tab 04/10/16 12/31/16 Clinic Rotigotine [Neupro] 6 mg TRANSDERM DAILY patch 06/06/16 12/31/16 History Collagenase Ointment [Santyl 90 gm TOPICAL QOD #1 tube 08/08/16 Clinic Ointment] Nitrofurantoin Macrocrystal 100 mg PO DAILY #90 cap 08/08/16 12/31/16 Clinic [Nitrofurantoin] Potassium Chloride [Klor-Con M10] 10 meq PO QOD #15 tab 09/24/16 Clinic Carbidopa/Levodopa [Carbidopa-Levo 0.5 tab PO BID 12/31/16 12/31/16 History 10-100 Tab] Hypromellose [Isopto Tears] 2 drp EACH EYE Q2H PRN 01/04/17 01/04/17 History Allergies/Adverse Reactions: Allergies Allergy/AdvReac Type Severity Reaction Status Date / Time No Known Allergies Allergy Verified 01/11/17 18:29 Exam - Vitals Vital Signs: Vital Signs Temperature 97.9 F Temperature Source Temporal Artery Scan Pulse Rate [Apical] 94 Pulse Rate [Pulse Oximeter] 102 Respiratory Rate 20 Blood Pressure [Left Arm] 120/51 Pulse Ox 93 Oxygen Delivery Method Room Air Height 6 ft Weight 105.778 kg - General General Appearance: POSITIVE: No Acute Distress, Cooperative - Respiratory Respiratory Exam: POSITIVE: Breathing Non Labored - Integumentary Additional Integumentary Exam Details: Patient has a large grade 4 decubitus ulcer over the ischial tuberosity. Digital palpation reveals bone in the base. There is a moderate amount of necrotic tissue. A normal saline and gauze wet-to-dry dressing was placed. Results - Labs CBC and BMP: 01/12/17 04:32 01/12/17 04:32 Labs - Last 24 Hours: Laboratory Results 01/12/17 Range/Units 04:32 WBC 13.13 H (4.8-10.8) 10^3/uL RBC 3.64 L (4.70-6.10) 10^6/uL Hgb 10.6 L (14.0-18.0) g/dL Hct 32.7 L (42.0-52.0) % MCV 89.8 (80-90) FL MCH 29.1 (27-31) PG MCHC 32.4 L (33-37) g/dL RDW Std Deviation 47.6 (39-50) fL RDW Coeff of Elder 15.0 H (11.5-14.5) % Plt Count 451 H (140-350) 10*3/uL MPV 9.7 (7.4-12.2) FL Immature Gran % (Auto) 0.3 (0-5) % Neut % (Auto) 78.6 (50-80) % Lymph % (Auto) 10.2 (10-50) % Mckenzie % (Auto) 8.9 (5-15) % Eos % (Auto) 1.8 (0-8) % Baso % (Auto) 0.2 (0-1) % Immature Gran # (Auto) 0.04 10*3/UL Neut # (Auto) 10.32 10*3/UL Lymph # (Auto) 1.34 10*3/uL Mckenzie # (Auto) 1.17 H (0.3-0.8) 10*3/UL Eos # (Auto) 0.23 10*3/UL Baso # (Auto) 0.03 10*3/UL WBC Morphology Comment Normal morphology (NORM) Plt Morphology Comment Normal morphology (NORM) RBC Morph Comment Normal morphology (NORM) Sodium 134 L (135-145) meq/L Potassium 3.7 L (3.8-5.2) meq/L Chloride 105 (98-112) meq/L Carbon Dioxide 20 L (23-33) meq/L Anion Gap 9 (5-20) BUN 37 H (7-22) mg/dL Creatinine 0.7 (0.70-1.50) mg/dL Estimated GFR (>60 ml/min/1.73m(2)) BUN/Creatinine Ratio 52.85 H (6-20) Glucose 102 (78-110) mg/dL Calculated Osmolality 286.0 (267-292) mOsm/kg Calcium 9.8 (8.7-10.7) mg/dL Total Bilirubin 0.7 (0.3-1.2) mg/dL AST 36 (21-57) IU/L ALT 15 L (21-72) IU/L Alkaline Phosphatase 97 (38-126) IU/L Total Protein 6.2 (6.1-8.0) g/dL Albumin 2.9 L (3.5-4.8) g/dL Globulin 3.3 (2.50-4.10) g/dL Albumin/Globulin Ratio 0.80 L (1.3-2.0) mg/g Assessment and Plan - Patient Problems (1) Decubitus ulcer of buttock Current Visit: Yes Status: Chronic Priority: Low Diagnosis Date: 10/28/16 Comment: There is necrotic tissue in the ulcer. There is bone in the base. Recommend a trial of 48 hours of twice a day wet-to-dry normal saline and gauze dressing changes as well as manual cleaning of the wound. If there is no signs of improvement by Saturday I think the patient needs debridement of the cavity. I have given him the option of going to [facility] and seeing a specialist for having me debride the wound . He would like me to do the debridement to see if we can get this healed. Patient will be nothing by mouth after midnight on Saturday. I will check the wound again on Saturday. If he is improved we can continue the same. If not we will plan to proceed with surgical debridement with probable removal of sharp bone edges and the base of the wound. We'll then plan a postoperative wound VAC. Anything other than local debridement he will need to be seen by the specialists in [facility]. We discussed the surgical procedure in detail.The procedure has been discussed with the patient in complete yet simple terms including benefits, risks, and alternatives. All questions have been answered. Informed consent has been obtained. Final decision will be Saturday when I reexamine the wound.
[2017-01-12] MEDS: GUAIFENESIN 600 MG TABLET PO PRN ×2 (17:26→21:50)
[2017-01-12] MEDS: Simvastatin Tab 40 MG TAB PO SCH (21:15)
[2017-01-12] MEDS: NITROFURANTOIN/NITROFURAN MAC 100 MG CAPSULE PO SCH (21:15)
[2017-01-13 05:09] LABS: BASOPHILS # (AUTO) 0.01 10*3/UL; BASOPHILS % (AUTO) 0.1 % (0-1); EOSINOPHILS # (AUTO) 0.22 10*3/UL; EOSINOPHILS % (AUTO) 1.8 % (0-8); HEMATOCRIT 32.7 % (42.0-52.0); HEMOGLOBIN 10.5 g/dL (14.0-18.0); LYMPHOCYTES # (AUTO) 1.71 10*3/uL; MEAN CORPUSCULAR HEMOGLOBIN 28.5 PG (27-31); MEAN CORPUSCULAR HGB CONC 32.1 g/dL (33-37); MEAN CORPUSCULAR VOLUME 88.9 FL (80-90); MEAN PLATELET VOLUME 9.5 FL (7.4-12.2); MONOCYTES # (AUTO) 1.35 10*3/UL (0.3-0.8); MONOCYTES % (AUTO) 10.9 % (5-15); NEUTROPHILS % (AUTO) 73.2 % (50-80); RED BLOOD COUNT 3.68 10^6/uL (4.70-6.10)
[2017-01-13 05:10] LABS: PLATELET MORPHOLOGY COMMENT NORMAL MORPHOLOGY (NORM); RBC MORPHOLOGY COMMENT NORMAL MORPHOLOGY (NORM); WBC MORPHOLOGY COMMENT NORMAL MORPHOLOGY (NORM)
[2017-01-13 05:18] LABS: BUN/CREATININE RATIO 47.14 (6-20); CALCIUM 9.7 mg/dL (8.7-10.7); SERUM ALBUMIN 2.8 g/dL (3.5-4.8)
[2017-01-13] MEDS: Potassium Chloride Tab 10 MEQ TAB PO SCH (08:09)
[2017-01-13] MEDS: FLUTICASONE PROPIONATE 16 GRAM (120 SPRAYS / BOTTLE) ENOS SCH ×2 (08:09→21:53)
[2017-01-13] MEDS: Multivitamin Tab 1 TAB PO SCH (08:09)
[2017-01-13] MEDS: ROTIGOTINE TRANSDERM SCH (08:10)
[2017-01-13] MEDS: ASCORBIC ACID 500 MG TABLET PO SCH ×2 (08:10→21:51)
[2017-01-13] MEDS: FINASTERIDE 5 MG TABLET PO SCH (08:10)
[2017-01-13] MEDS: ZINC GLUCONATE 50 MG TABLET PO SCH (08:10)
[2017-01-13] MEDS: Carbidopa/Levodopa 25/100mg Tab PO SCH ×2 (08:10→21:52)
[2017-01-13] MEDS: Metoprolol TARTRATE Tab 25 MG TAB PO SCH ×2 (08:10→21:03)
--- NOTE | 2017-01-13 11:41 | PT.PROG ---
Progress Note Progress Note: S: Pt. states she is doing well. States he is cold today. O: Treatment consisted of wound care dressing change: After discussion with the doctor the decision was made to remove the wound vac for a few days and go to BID dressing changes with aquacel AG and Tielle foam. Dr. Smyth with contact Dr. Santa for possible surgical debridement intervention. Pt. then perform functional activities: bed mobility and dressing. Transfer from EOB to power chair with use of slide board and max assist time two. He then came to the clinic where he performed wall pulleys, ube x 10 minutes, 3 [address] bungees and off loading with his chair. He then went back up to his room and transferred back into bed with use of slide board and min assist x1. Pt. was left in bed with instructions to perform dressing change this afternoon. A: Pt.'s wound does present with increased slough tissue, foul odor and copious amounts of drainage. It appears as if the bioburden at this time is not allowing for proper healing. The BID dressing changes will hopefully allow for mechanical debridement until surgical debridement can be obtained. He is still weak and requires increased assist with transfers. Trunk and upper body is fair. He participates well and attempts all activities. P: Continue per POC to increase strength and activity tolerance. Rosibel Buckley, [employer]
[2017-01-13] MEDS: NITROFURANTOIN/NITROFURAN MAC 100 MG CAPSULE PO SCH (21:51)
[2017-01-13] MEDS: Simvastatin Tab 40 MG TAB PO SCH (21:52)
[2017-01-14] MEDS: Metoprolol TARTRATE Tab 25 MG TAB PO SCH ×2 (10:40→21:45)
[2017-01-14] MEDS: ASCORBIC ACID 500 MG TABLET PO SCH ×2 (10:41→21:45)
[2017-01-14] MEDS: Multivitamin Tab 1 TAB PO SCH (10:41)
[2017-01-14] MEDS: FINASTERIDE 5 MG TABLET PO SCH (10:41)
[2017-01-14] MEDS: ZINC GLUCONATE 50 MG TABLET PO SCH (10:41)
[2017-01-14] MEDS: Carbidopa/Levodopa 25/100mg Tab PO SCH ×2 (10:42→21:45)
[2017-01-14] MEDS: ROTIGOTINE TRANSDERM SCH (10:43)
[2017-01-14] MEDS: FLUTICASONE PROPIONATE 16 GRAM (120 SPRAYS / BOTTLE) ENOS SCH ×2 (10:43→21:46)
--- NOTE | 2017-01-14 10:57 | PDOC(PROG) ---
Interval History: Patient has no complaints denies chest pain nausea or vomiting Objective : Data - Labs CBC and BMP: 01/13/17 04:45 01/13/17 04:45 Objective : Exam - General General Appearance: Cooperative - Head Head Exam: Normal Inspection, Normocephalic, Atraumatic Assessment and Plan - Patient Problems (1) Left ischial pressure sore Current Visit: Yes Status: Acute Comment: Patient has been doing wound care wound is not healing properly. Most likely patient will need the debridement possible hyperbaric oxygen or even deeper debridement. Discussed with patient he will make a decision after he discusses the case with Dr. Santa general surgery, on the best case scenario and recommendations to get the wound healed. I told the patient that we would help him facilitate whatever would need to be done. Qualifiers: Pressure ulcer stage: stage 4 Qualified Description: Pressure sore of left ischial area, stage IV Qualifier Code(s): (L89.324) Pressure ulcer of left buttock, stage 4 (2) Decubitus ulcer of buttock Current Visit: Yes Status: Chronic Priority: Low Diagnosis Date: 10/28/16 (3) Decubitus ulcer Current Visit: No Status: Acute (4) History of atrial flutter Current Visit: No Status: Chronic (5) Neurogenic bladder Current Visit: Yes Status: Chronic (6) Neurogenic bowel Current Visit: Yes Status: Chronic (7) Paraplegia Current Visit: Yes Status: Chronic
--- NOTE | 2017-01-14 11:51 | PDOC(PROG) ---
Date and Time of Service: 01/14/2017 11:30 AM. Interval History: Doing well. No complaints or problems. Objective : Data - Labs CBC and BMP: 01/13/17 04:45 01/13/17 04:45 - Vital Signs Vital Signs and I&O: Vital Signs - Last Taken Temperature 97.6 F 01/14/17 07:00 Pulse Rate 76 01/14/17 07:00 Respiratory Rate 18 01/14/17 07:00 Blood Pressure 121/61 01/14/17 07:00 Pulse Ox 95 01/14/17 07:00 Intake and Output (24hr x 4 totals) 01/12/17 01/13/17 01/14/17 01/15/17 05:59 05:59 05:59 05:59 Intake Total 1620 2730 1530 Output Total 1350 1950 1975 Balance 270 780 -445 Objective : Exam - General General Appearance: No Acute Distress, Cooperative - Integumentary Additional Integumentary Exam Details: Grade 4 decubitus ulcer. Bone in the base is soft. Less necrotic tissue than when I saw 48 hours ago. Spoke to orthopedics. They didn't feel debridement would accomplish anything unless the bone was removed as well. Assessment and Plan - Patient Problems (1) Decubitus ulcer of buttock Current Visit: Yes Status: Chronic Priority: Low Diagnosis Date: 10/28/16 Comment: I think that in the patient's best interest he should be referred to a larger center with a wound care team. The wound needs to be surgically debrided and I believe bone needs to be removed removed as well. I spoke to the patient and to Dr. Bains. Dr. Bains will help set up an outpatient appointment in [place] where the last debridement was done. In the meantime would continue wet-to-dry normal saline and gauze dressing changes to see if we can accomplish further debridement.
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
[2017-01-14 19:11] VITALS: TEMP 97.4
[2017-01-14] MEDS: NITROFURANTOIN/NITROFURAN MAC 100 MG CAPSULE PO SCH (21:46)
[2017-01-14] MEDS: Simvastatin Tab 40 MG TAB PO SCH (21:46)
[2017-01-14] MEDS: GUAIFENESIN 600 MG TABLET PO PRN (21:46)
[2017-01-14] MEDS ORDERED: Zolpidem Tab 5 MG TAB PO ONE (21:55)
[2017-01-15 06:24] VITALS: RESP 18
[2017-01-15] MEDS: FLUTICASONE PROPIONATE 16 GRAM (120 SPRAYS / BOTTLE) ENOS SCH (08:08)
[2017-01-15] MEDS: ASCORBIC ACID 500 MG TABLET PO SCH (08:09)
[2017-01-15] MEDS: Carbidopa/Levodopa 25/100mg Tab PO SCH (08:09)
[2017-01-15] MEDS: ZINC GLUCONATE 50 MG TABLET PO SCH (08:09)
[2017-01-15] MEDS: HYPROMELLOSE EACH EYE PRN (08:09)
[2017-01-15] MEDS: Potassium Chloride Tab 10 MEQ TAB PO SCH (08:09)
[2017-01-15] MEDS: Metoprolol TARTRATE Tab 25 MG TAB PO SCH (08:09)
--- NOTE | 2017-01-15 08:09 | PT.PROG ---
Progress Note Progress Note: 01/14/2017 3:00-3:30 S: pt reports he is feeling ready for todays session. pt. states he will be going to get surgery done in [place] sometime this week. O: pt. performed band serratus 2x20, dips in his chair 3x5, cable adduction 50# x12, double pondman cable row 75#x15, db lateral raises 8#x12 ea, oh pull down ext. 125 x10. pt. was then put in the stander for 30 min and performed fine motor and cognitive tasks. some drainage from his wound was noted after the session. A: pt. does seem to be a little down knowing he has to be transferred out again. He continues to make great efort day to day and is improving in his strength. P: continue to progress exercise intensity and functional activity as tolerated.
[2017-01-15] MEDS: Multivitamin Tab 1 TAB PO SCH (08:10)
[2017-01-15] MEDS: FINASTERIDE 5 MG TABLET PO SCH (08:10)
[2017-01-15] MEDS: ROTIGOTINE TRANSDERM SCH (08:10)
--- NOTE | 2017-01-15 10:24 | PT.PROG ---
Progress Note Progress Note: S: Pt. states he is doing okay today. Frustrated with lack of healing of his wound. O: Treatment consisted of functional activities: including bed mobility, UE and LE dressing, transfer from EOB to power chair, wall pulleys, ube x 10 min, seated trunk strengthening activities at the mat while in the power chair, bench press with 10 lbs. Pt. was to be transferred via nursing staff later this morning. A: Pt. continues to present with trunk weakness and difficulty with transfers. He was able to transfer better today with assist x 2. He is frustrated with his wound. Hoping for surgical intervention as his wound does present with a foul odor, 100% slough tissue and not vitalized tissue present at this time, as well as copious amounts of drainage. P: Continue per POC to increase strength and activity tolerance. Rosibel Buckley, PANELBOARD TANK PUMPER
--- NOTE | 2017-01-15 11:52 | OT PM DAY ---
Diagnosis : Left Ischial Tuberosity Ulcer/Weakness PM - Occupational Therapy S: The patient reports he is going to have to go to [facility] to get his wound looked at. He states he just wants to go home. O: Arrangements were made in the AM for public transportation to continuous pickling line pickler the patient and the therapist to let him return home for a little bit before he has to leave again. The patient was seen in his room. He completed lower extremity dressing with mod assist. He completed upper extremity dressing with min assist. The patient was then transferred from his bed to the wheelchair with max assist x2 using the slide board. The patient completed hygiene activities at sink independently and was wheeled downstairs. The patient was taken home by public transportation. Once at home, the patient worked on completing home safety/transfers while in wheelchair. The patient was very safe and navigated his home well with wheelchair. The patient returned to the hospital safely and completed therapy in the gym. A: The patient benefitted greatly from seeing his home for his mental status as he may be leaving for another surgery which will keep him away from home for quite some time. We will continue to monitor the patient's mental status as he is pretty down about this. We will continue to work on transfers and increasing the patient's core strength while he is here to assist with ADLs. P: Continue seeing patient BID during the week and one time per day over the weekend for upper extremity strengthening, ADLs, and overall functional mobility. DONTE
--- NOTE | 2017-01-15 12:45 | PT AM DAY ---
Diagnosis : Left Ischial Tuberosity Ulcer AM - Physical Therapy S: The therapist spoke with the therapist regional manager this weekend in regards to discontinuing the wound vac at this time and the change to a clean dressing. The patient also states he was placed on NPO as of midnight and may be undergoing surgery today under Dr. Santa's orders. O: Treatment today consisted of wound care dressing change with Aquacel AG and Tielle foam. A: The wound continues to have a pseudomonas smell. P: Continue seeing patient PRN per wound presentation. MTDD
--- NOTE | 2017-01-15 12:58 | PT PM DAY ---
Diagnosis : Left Ischial Tuberosity Ulcer PM - Physical Therapy S: The patient reports he will be transferred down to [facility] sometime later this week to have a follow up debridement surgery as well as a skin flap. O: Following physical therapy for transfers and upper extremity strengthening and being placed in the stander, it was noted that his dressing was completely saturated and seeping through his clothing. Treatment today consisted of wound care dressing change with Aquacel AG and Tielle foam. A: The patient tolerated today's treatment well. P: Continue seeing patient on a PRN basis for clean dressing changes until transfer to [facility] unless otherwise notified by the family. PAOLAD
== END 2017-01-15 09:00 | disposition home or self-care (01) | DRG 592 ==
LOC: MED/SURG 15:08
PROVIDERS: ADMIT Internal Medicine; ATTEND Internal Medicine
DX: L89.324 Pressure ulcer of left buttock, stage 4 (principal); I48.92 Unspecified atrial flutter; K59.2 Neurogenic bowel, not elsewhere classified; G82.20 Paraplegia, unspecified; N31.8 Other neuromuscular dysfunction of bladder; I10 Essential (primary) hypertension; G20 Parkinson's disease
CPT/HCPCS: 36415; 73620; 73720; 80053; 85025; 85652; 86140; 93005; 93010; 94761; 97110; 97140; 97163; 97167; 97530; 97535; 97750; J1170; J1650

== ENCOUNTER 2017-06-27 08:05 | Observation (INO) ==
[2017-06-27] MEDS ORDERED: MORPHINE SULFATE 4 MG/1 ML IVP ONE (08:22)
[2017-06-27] MEDS ORDERED: Sodium Chloride 0.9% 1,000 ML PRIMARY IV ONE (08:22)
--- NOTE | 2017-06-27 08:27 | PDOC ---
Abdomen/Flank HPI - General Chief Complaint: Abdomen Pain Stated Complaint: abd pain, diarrhea Date Seen by Provider: 06/27/17 Time Seen by Provider: 08:22 Source: POSITIVE: Patient, Spouse Exam Limitations: POSITIVE: No limitations Nurse's Notes Reviewed & Considered: Yes - History of Present Illness Initial Comments: This is a pleasant 77-year-old male who comes in today complaining of abdominal pain, bloating, and diarrhea. Patient has a colostomy in place that has had increased output with changing color from normal to hand to a darker color. He also has copious output. He has increased abdominal pain and distention. He is complaining of nausea. He is chilled and temperature is 94. He denies headache, no cough or shortness of breath, no chest pain. Body Location Affected: REPORTS: Abdomen Timing: REPORTS: Unknown Duration: Unknown Severity: Moderate Quality: REPORTS: "Pain" Abdominal Pain Onset Location: REPORTS: Generalized abdomen Abdominal Pain Radiation: REPORTS: No radiation Context: REPORTS: None Modifying Factors: improves with: Nothing Associated Symptoms: REPORTS: Chills, Nausea, Diarrhea Similar Symptoms Previously: No Recent Care Received: REPORTS: Denies Any Prior Injuries Related to Current Complaint?: No - Patient Home Medications Home Medications: Home Medications atorvastatin 40 mg tablet 40 mg PO QHS #90 tab 06/03/17 carbidopa 25 mg-levodopa 100 mg tablet 1 tab PO BID #180 tab 06/03/17 finasteride 5 mg tablet 5 mg PO DAILY #90 tab 06/03/17 metoprolol tartrate 25 mg tablet 25 mg PO BID #180 tab 06/03/17 rotigotine 6 mg/24 hour transdermal 24 hour patch 12 mg TRANSDERM DAILY #180 patch 06/03/17 Ciprofloxacin HCl [Cipro HCl] 250 mg PO BID #20 tab 06/15/17 Ciprofloxacin HCl [Cipro HCl] 500 mg PO BID #20 tab 06/15/17 HYDROcodone/APAP 5/325 Tab [Pomerene 5/325 Tab] 1 tab PO Q4H PRN tab 06/15/17 Lidocaine Uro-Ject 2% [Xylocaine Uro-Ject 2%] 10 ml TOPICAL ONCE PRN jelly 11/26 Linezolid [Zyvox] 600 mg PO BID #20 tab 06/15/17 Pantoprazole Sodium [Protonix] 40 mg PO AC BK tab 06/15/17 - Patient Allergies Allergies/Adverse Reactions: Allergies 3 Allergy/AdvReac Type Severity Reaction Status Date / Time No Known Allergies Allergy Verified 06/27/17 08:10 Past Medical History - heen HEENT History: Hard of Hearing Additional HEENT History: PT WEARS HEARING AIDS Cardiovascular History: Hyperlipidemia Additional Cardiovasular History: 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 Respiratory History: Sleep Apnea Gastrointestinal History: Peptic Ulcer Disease Genitourinary History: Recurrent UTI, Neurogenic Bladder Additional Genitourinary History: Conklin Catheter Endocrine History: Denies History Musculoskeletal History: Physical Limitation Prosthesis or Implant: Yes Additional Musculoskeletal History: T12 PARAPLEGIC Neurological History: Parkinson's, Other (please comment) Additional Neurological History: T12 PARAPLEGIA Blood Disorders: Denies History Psychiatric History: Denies History History of Sexually Transmitted Diseases: No Cancer History: Denies History History of MDRO: No History of Other Communicable Diseases: No Alcohol Use: Occasionally In the Past 12 Months, Have Used or Abuse Any Substance: None Previous Surgical History: Yes Type / Date of Surgery: APPY/ CAROTID ENDARTERECTOMY RIGHT 04/2014/ NARCISO/ COLOSTOMY/ EGD/ SHOULDER SCOPE/ BACK SX X 4/ RIGHT RIB RESECTION FOR BENIGN TUMOR/ NERVE RESECTION LOWER LEGS Anesthesia Reactions: No Malignant Hyperthermia: No Significant Family History: Heart disease Additional Family History: FATHER HAD LUNG REMOVED ROS - Limitations ROS Limitations: No Limitations Constitution: REPORTS: Chills Cardiovascular: REPORTS: Denies Cardiac Symptoms Respiratory: REPORTS: Denies Resp Symptoms Neurological: REPORTS: Denies Neuro Symptoms Gastrointestinal: REPORTS: Abdominal Pain, Nausea, Diarrhea Endocrine: REPORTS: Denies Symptoms Musculoskeletal: REPORTS: Denies MS Symptoms Genitourinary: REPORTS: Denies Symptoms Eyes: REPORTS: Denies Symptoms ENT: REPORTS: Denies Symptoms Skin: REPORTS: Denies Skin Symptoms Lympathic: REPORTS: Denies Lympathic Symptoms Immunologic: POSITIVE: Denies Symptoms Psychiatric: POSITIVE: Denies Psych Symptoms Abdominal/Flank Pain PE - General Appearance General Appearance: POSITIVE: Alert, Cooperative, No Acute Distress, No Evidence of Trauma - HEENT HEENT: POSITIVE: Head Inspection Nml, Eyes Inspection Nml, Ears Inspection Nml, Nose Inspection Nml, Oral/Dental Inspect. Nml, Pharynx Inspect. Nml, PERRL, EOMI - Neck Neck: POSITIVE: Normal Inspection, No Apparent Injury - Respiratory Respiratory: POSITIVE: No Respiratory Distress, Breath Sounds Normal, Chest Non- Tender - Cardiovascular Cardiovascular: POSITIVE: Regular Rate and Rhythm, Heart Sounds Normal, Strong Pulses Peripheral Pulses: Radial (L): 4+ - Chest Chest: POSITIVE: Non Tender - Abdomen Abdomen: Normal Bowel Sounds: (All Quadrants), No Splenomegaly: (All Quadrants) , No Hepatomegaly: (All Quadrants), No Guarding: (All Quadrants), No Rebound: ( All Quadrants), No Palpable Pulse: (All Quadrants), No Palpabale Mass: (All Quadrants), Tenderness Noted: (All Quadrants), Distention: (All Quadrants) - Back Back: POSITIVE: Normal Inspection - Skin Skin: POSITIVE: Intact, Normal For Race, Warm, Dry, No Rash - Extremities Extremity: Non-Tender: (All Extremities), Normal ROM: (All Extremities), Normal Inspection: (All Extremities), Pelvis Stable: (All Extremities) - Neurological Neurological: POSITIVE: Oriented X3, Motor Normal, Sensation Normal - Psychological Psychiatric: POSITIVE: Affect Appropriate, Mood Appropriate Abdomen Progress - Results Reviewed by me Xrays/CTs/US Reviewed by me: No Discussed with Radiologist: No Lab Results Reviewed by Me: No - Patient's Progress Pain Medication Addressed: POSITIVE: Yes MDM / ED Course: Patient was examined, an IV started, blood drawn and sent to the lab for studies CT examination of his abdomen and pelvis were ordered. The end of my shift has occurred while awaiting lab results and results of CT scan. I have turned over care to Dr. Nadeem Larios, for results and disposition please see his dictation. Working assessment: Abdominal pain, diarrhea, and nausea. Plan: Per Dr. Larios dictation. Patient Care Time - Estimated PCT Patient Care Time (In Minutes): 15 Vital Signs - VS Reviewed Vital Signs Reviewed: Yes Discharge Clinical Impression: Abdominal pain, Nausea and vomiting, Diarrhea Condition: Stable Follow Up With: ADDIE MALLOY [Primary Care Provider] -
[2017-06-27 08:31] LABS: BILIRUBIN,URINE NEGATIVE (NEG); CLARITY,URINE Slightly Cloudy (CLEAR); COLOR,URINE YELLOW (Y); GLUCOSE, URINE (UA) NEGATIVE (NEG); NITRATE,URINE NEGATIVE (NEG); OCCULT BLOOD,URINE NEGATIVE (NEG); PROTEIN,URINE NEGATIVE (NEG); URINE SAMPLE TYPE CLEAN CATCH URINE; UROBILINOGEN,URINE 0.2 EU/dL (0.2)
[2017-06-27] MEDS ORDERED: ONDANSETRON 4 MG/2 ML VIAL IVP ONE ×2 (08:44→10:07)
[2017-06-27 08:52] LABS: BASOPHILS # (AUTO) 0.01 10*3/UL; BASOPHILS % (AUTO) 0.1 % (0-1); EOSINOPHILS # (AUTO) 0.16 10*3/UL; EOSINOPHILS % (AUTO) 1.6 % (0-8); Hematocrit [HCT] 38.1 % (42.0-52.0); Hemoglobin [HGB] 12.5 g/dL (14.0-18.0); LYMPHOCYTES # (AUTO) 1.04 10*3/uL; MEAN CORPUSCULAR HEMOGLOBIN 29.9 PG (27-31); MEAN CORPUSCULAR HGB CONC 32.8 g/dL (33-37); MEAN CORPUSCULAR VOLUME 91.1 FL (80-90); MEAN PLATELET VOLUME 9.6 FL (7.4-12.2); MONOCYTES # (AUTO) 0.43 10*3/UL (0.3-0.8); MONOCYTES % (AUTO) 4.3 % (5-15); NEUTROPHILS # (AUTO) 8.28 10*3/UL; NEUTROPHILS % (AUTO) 83.4 % (50-80); RED BLOOD COUNT 4.18 10^6/uL (4.70-6.10)
[2017-06-27 09:05] LABS: BLOOD UREA NITROGEN 22 mg/dL (7-22); MAGNESIUM 1.8 mg/dL (1.6-2.4); SERUM ALBUMIN 3.8 g/dL (3.5-4.8)
[2017-06-27 09:10] LABS: PLATELET MORPHOLOGY COMMENT NORMAL MORPHOLOGY (NORM); RBC MORPHOLOGY COMMENT NORMAL MORPHOLOGY (NORM); WBC MORPHOLOGY COMMENT NORMAL MORPHOLOGY (NORM)
--- NOTE | 2017-06-27 09:49 | DI ---
AP /LATERAL CHEST X-RAY, 06/27/2017 8:22 AM : Clinical History: Chills rigors. Previous Exam: 10/27/2016. There is no acute soft tissue or bony abnormality. Portions of the right lateral upper ribs have been resected. Heart size is normal. Lungs are clear. Mediastinal structures are normal. There are no pul monary nodules. Reading: Normal chest x-ray.
--- NOTE | 2017-06-27 10:29 | DI ---
CT ABDOMEN SCAN WITH IV CONTRAST, 06/27/2017 8:22 AM : Clinical History: Bloating. Abdominal pain. Diarrhea. Previous Exam: 06/11/2017. Scans are performed from the lower lung bases through the liver and kidneys with IV contrast. 75 ml o f Isovue 300 was injected IV. Right pleural effusion. The liver is normal. The patient is status post cholecystectomy and the commo n bile duct measures 10 mm. There is no abnormality of the spleen, pancreas, and adrenal glands. Both kidneys are normal in size, shape, position and contour. There is no hydronephrosis or hydroureter. No renal or ureteral calculi are present. Perfusion to both kidneys is normal and there is no perinep hric inflammatory/infiltrative change. There are no abnormal retrocrural or periaortic nodes. No asci deneen is present. READING: Normal CT abdomen scan. CT PELVIS SCAN WITH IV CONTRAST, 06/27/2017 8:22 AM: Clinical History: See above. Previous Exam: None at this facility. Scans are performed from just superior to the umbilicus to the symphysis pubis with IV contrast. This is the same bolus of contrast used for the CT scans of the abdomen. Scans through the lower abdomen and pelvis show no masses or abnormal fluid collections. There is no adenopathy. There is marked atrophy with fatty infiltration of all of the abdominal musculature and m uscles of the lower extremities secondary to paraplegia. The appendix is not identified with certaint y but there is no inflammatory mass either in the cecum or in the right lower quadrant. The small bow el, terminal ileum, and ileocecal valve are normal. The patient has a colostomy in the left flank reg ion. The colon itself is normal. There are no hernias. There is an old left hip fracture with nonunio n with a large joint effusion. The patient is status post ORIF of a right hip fracture. READIN. No acute abnormality is identified. 2. 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 There is a large joint effusion. 3. Marked atrophy of all of the muscles with fatty infiltration secondary to paraplegia.
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
[2017-06-27] MEDS ORDERED: NORMAL SALINE 10 ML SYRINGE FLUSH IVP PRN (13:36)
[2017-06-27] MEDS ORDERED: ONDANSETRON 4 MG/2 ML VIAL IVP PRN (13:36)
[2017-06-27] MEDS ORDERED: LIDOCAINE W/ SODIUM BICARB 0.5 ML SYR SUBD PRN (13:36)
[2017-06-27] MEDS ORDERED: CALCIUM CARBONATE 500 MG (TUMS) CHEWABLE TABLET PO PRN (13:36)
[2017-06-27] MEDS ORDERED: MORPHINE SULFATE 2 MG/1 ML IVP PRN (13:38)
[2017-06-27] MEDS: Sodium Chloride 0.9% 1,000 ML PRIMARY IV SCH ×2 (13:56→23:08)
[2017-06-27] MEDS ORDERED: ACETAMINOPHEN 325 MG TABLET PO PRN (14:50)
[2017-06-27] MEDS: ROTIGOTINE TRANSDERM SCH (15:30)
--- NOTE | 2017-06-27 17:31 | PDOC ---
Transfer of Care - Care Accepted Time Care Transferred: 09:00 Report from Transferring Physician Received: Yes (Dr. Mcmullen) MDM / ED Course: The patient is a 77-year-old male with paraplegia from previous spinal cord injury who presents to the emergency department with nausea, diarrhea and abdominal pain/distention. He is currently being treated with antibiotics for an MRSA and Pseudomonas urinary tract infection for which he was hospitalized last week. He is still currently taking the nasal lid. He states that the diarrhea started about 3 days after he started taking the antibiotics. This seems to have worsened in the past several days. He has associated nausea however has not been vomiting. He states that he is unable to vomit. He has had no appetite and has not really ate or drank anything the past couple of days. His abdomen also feels distended. He has not had any blood in the stool although his stool was somewhat darker than normal yesterday. He was initially evaluated per Dr. Mcmullen and lab work along with urinalysis and CT scan of the abdomen and pelvis was ordered. He also received a bolus of IV fluids and Zofran IV. Results of labs and CT scan are pending at the time patient care was transferred. Home Medications: Home Medications atorvastatin 40 mg tablet 40 mg PO QHS #90 tab 06/03/17 carbidopa 25 mg-levodopa 100 mg tablet 1 tab PO BID #180 tab 06/03/17 finasteride 5 mg tablet 5 mg PO DAILY #90 tab 06/03/17 metoprolol tartrate 25 mg tablet 25 mg PO BID #180 tab 06/03/17 rotigotine 6 mg/24 hour transdermal 24 hour patch 12 mg TRANSDERM DAILY #180 patch 06/03/17 Ciprofloxacin HCl [Cipro HCl] 250 mg PO BID #20 tab 06/15/17 Ciprofloxacin HCl [Cipro HCl] 500 mg PO BID #20 tab 06/15/17 Lidocaine Uro-Ject 2% [Xylocaine Uro-Ject 2%] 10 ml TOPICAL ONCE PRN jelly 11/26 Linezolid [Zyvox] 600 mg PO BID #20 tab 06/15/17 Pantoprazole Sodium [Protonix] 40 mg PO AC BK tab 06/15/17 Allergies/Adverse Reactions: Allergies No Known Allergies Allergy (Verified 06/27/17 08:10) - Pending Patient Care Items Pending Patient Care Items: POSITIVE: Labs, CT / MRI Results - Re-Evaluation of Patient Disposition of Patient: POSITIVE: Admitted Counseled: POSITIVE: Patient, Family, RE: Lab Results, RE: Radiology Results, RE : DX Clinical Impression Documented: Yes - Results Reviewed Lab Results Reviewed by Me: Yes Lab Results: Laboratory Results 06/27/17 06/27/17 06/27/17 Range/Units 07:55 08:49 08:49 WBC 9.93 (4.8-10.8) 10^3/uL RBC 4.18 L (4.70-6.10) 10^6/uL Hgb 12.5 L (14.0-18.0) g/dL Hct 38.1 L (42.0-52.0) % MCV 91.1 H (80-90) FL MCH 29.9 (27-31) PG MCHC 32.8 L (33-37) g/dL RDW Std Deviation 46.9 (39-50) fL RDW Coeff of Elder 14.4 (11.5-14.5) % Plt Count 288 (140-350) 10*3/uL MPV 9.6 (7.4-12.2) FL Immature Gran % (Auto) 0.1 (0-5) % Neut % (Auto) 83.4 H (50-80) % Lymph % (Auto) 10.5 (10-50) % Lares % (Auto) 4.3 L (5-15) % Eos % (Auto) 1.6 (0-8) % Baso % (Auto) 0.1 (0-1) % Immature Gran # (Auto) 0.01 10*3/UL Neut # (Auto) 8.28 10*3/UL Lymph # (Auto) 1.04 10*3/uL Lares # (Auto) 0.43 (0.3-0.8) 10*3/UL Eos # (Auto) 0.16 10*3/UL Baso # (Auto) 0.01 10*3/UL WBC Morphology Comment Normal morphology (NORM) Plt Morphology Comment Normal morphology (NORM) RBC Morph Comment Normal morphology (NORM) Sodium 138 (135-145) meq/L Potassium 4.4 (3.8-5.2) meq/L Chloride 106 (98-112) meq/L Carbon Dioxide 19 L (23-33) meq/L Anion Gap 13 (5-20) BUN 22 (7-22) mg/dL Creatinine 0.8 (0.70-1.50) mg/dL BUN/Creatinine Ratio 27.50 H (6-20) Glucose 81 (78-110) mg/dL Calculated Osmolality 287.0 (267-292) mOsm/kg Lactic Acid 1.7 (0.70-2.10) MMOL/L Calcium 10.0 (8.7-10.7) mg/dL Magnesium 1.8 (1.6-2.4) mg/dL Total Bilirubin 0.6 (0.3-1.2) mg/dL AST 27 (21-57) IU/L ALT 41 (21-72) IU/L Alkaline Phosphatase 119 (38-126) IU/L Total Protein 7.5 (6.1-8.0) g/dL Albumin 3.8 (3.5-4.8) g/dL Globulin 3.7 (2.50-4.10) g/dL Albumin/Globulin Ratio 1.00 L (1.3-2.0) mg/g Ur Collection Type Clean catch urine Urine Color Yellow (Y) Urine Clarity Slightly cloudy (CLEAR) Urine pH 5.0 (5.0-8.5) Ur Specific [place] 1.020 (1.005-1.030) Urine Protein Negative (NEG) mg/dl Urine Glucose (UA) Negative (NEG) mg/dL Urine Ketones Negative (NEG) Urine Occult Blood Negative (NEG) Urine Nitrate Negative (NEG) Urine Bilirubin Negative (NEG) Urine Urobilinogen 0.2 (0.2) EU/dL Ur Leukocyte Esterase Negative (NEG) Ur Culture Indicated? Culture not set - Consult Recommendations:: The patient's urinalysis did not reveal any evidence of continued infection. His CBC and CMP are essentially unremarkable except for an elevated BUN/ creatinine ratio. His lactate was normal. CT scan of the abdomen and pelvis showed no acute findings per radiologist. The patient had received a fluid bolus as well as 1 dose of Zofran. He had continued nausea and received a second dose of Zofran. Findings were discussed with the patient. The patient appears to be clinically dehydrated. He has diarrhea which is likely antibiotic associated diarrhea. Stool will be sent for C. difficile, Giardia and cryptosporidium. Decision was made to admit the patient for continued hydration. The patient is in agreement with this plan. Dr. Smyth has agreed to admit the patient. Patient Care Time - Estimated PCT Patient Care Time (In Minutes): 20 Vital Signs - VS Reviewed Vital Signs Reviewed: Yes Discharge Clinical Impression: Abdominal pain, Diarrhea, Dehydration Discharge Disposition: Admit to Observation Condition: Stable
[2017-06-27] MEDS: Metoprolol TARTRATE Tab 25 MG TAB PO SCH (20:55)
[2017-06-27] MEDS: Carbidopa/Levodopa 25/100mg Tab PO SCH (20:55)
[2017-06-27] MEDS: ATORVASTATIN 40 MG TABLET PO SCH (20:55)
[2017-06-28] MEDS: PANTOPRAZOLE 40 MG TABLET PO SCH (06:47)
[2017-06-28 06:55] LABS: BLOOD UREA NITROGEN 18 mg/dL (7-22)
[2017-06-28] MEDS: Sodium Chloride 0.9% 1,000 ML PRIMARY IV SCH ×2 (07:39→23:25)
[2017-06-28 07:44] LABS: Hematocrit [HCT] 32.8 % (42.0-52.0); Hemoglobin [HGB] 11.1 g/dL (14.0-18.0); MEAN CORPUSCULAR HEMOGLOBIN 31.5 PG (27-31); MEAN CORPUSCULAR HGB CONC 33.9 g/dL (33-37); MEAN CORPUSCULAR VOLUME 93 FL (80-90); MEAN PLATELET VOLUME 7.7 FL (7.4-12.2); RED BLOOD COUNT 3.54 10^6/uL (4.70-6.10)
[2017-06-28 07:45] LABS: PLATELET MORPHOLOGY COMMENT NORMAL MORPHOLOGY (NORM); RBC MORPHOLOGY COMMENT NORMAL MORPHOLOGY (NORM); WBC MORPHOLOGY COMMENT NORMAL MORPHOLOGY (NORM)
[2017-06-28 07:46] LABS: BASOPHILS % (AUTO) 0.2 % (0-1); EOSINOPHILS % (AUTO) 1.8 % (0-8); MONOCYTES % (AUTO) 5.2 % (5-15)
[2017-06-28 07:47] LABS: BASOPHILS # (AUTO) 0.02 10*3/UL; EOSINOPHILS # (AUTO) 0.15 10*3/UL; LYMPHOCYTES # (AUTO) 1.21 10*3/uL; MONOCYTES # (AUTO) 0.42 10*3/UL (0.3-0.8); NEUTROPHILS # (AUTO) 6.37 10*3/UL
[2017-06-28] MEDS: Carbidopa/Levodopa 25/100mg Tab PO SCH ×2 (08:46→20:14)
[2017-06-28] MEDS: FINASTERIDE 5 MG TABLET PO SCH (08:46)
[2017-06-28] MEDS: Metoprolol TARTRATE Tab 25 MG TAB PO SCH ×2 (08:46→20:14)
[2017-06-28] MEDS: ROTIGOTINE TRANSDERM SCH (16:11)
[2017-06-28] MEDS ORDERED: CHOLESTYRAMINE/SUCROSE 4 GM PACKET PO ONE (19:25)
[2017-06-28] MEDS: ATORVASTATIN 40 MG TABLET PO SCH (20:14)
[2017-06-28] MEDS ORDERED: LIDOCAINE HCL 2 % 10 ML JELLY URO-JECT TOPICAL PRN (20:47)
--- NOTE | 2017-06-28 20:53 | PDOC(PROG) ---
Date and Time of Service: 06/28/2017, 2049 Interval History: No chest pain, shortness breath, nausea or vomiting. Loose stool persists and is not comfortable with the idea of going home. He does not want to do his bowel regimen today and would like to try some physical therapy. Objective : Data - Labs CBC and BMP: 06/28/17 05:56 06/28/17 05:56 Objective : Exam - General General Appearance: No Acute Distress, Cooperative Additional General Exam Details: Vital Signs (24 hrs) Temp Pulse Resp BP Pulse Ox 06/28/17 20:10 97.7 F 75 20 151/77 94 06/28/17 16:43 96.7 F L 77 16 156/79 94 06/28/17 13:00 97.8 F 80 20 129/69 94 06/28/17 08:32 97.5 F 90 20 120/50 90 06/28/17 04:00 97.4 F 79 12 104/57 92 06/28/17 00:21 97.8 F 92 20 103/57 92 - Eye Eye Exam: No Scleral Icterus - ENT ENT Exam: Mucous Membranes Moist - Respiratory Respiratory Exam: Clear to Auscultation - Bilaterally, Breathing Non Labored - Cardiovascular Cardiovascular Exam: RRR, No Murmur, No Clicks, No Gallops, No Rubs, No JVD - GI/Abdominal GI/Abdominal Exam: Normal Bowel Sounds, Non Tender, Non Distended, Soft Additional GI/Abdominal Exam Details: Ostomy looks okay. Stool looks fairly loose. - Extremities Extremities Exam: No Clubbing Present, No Edema Present, No Cyanosis Present - Neurological Neurological Exam: Alert, Oriented x 3, No Facial Droop, Speech Intact / Clear Assessment and Plan - Patient Problems (1) Diarrhea Current Visit: Yes Status: Acute Code(s): R19.7 - Diarrhea, unspecified (2) History of frequent urinary tract infections Current Visit: Yes Status: Chronic Code(s): Z87.440 - Personal history of urinary (tract) infections (3) Parkinson disease Current Visit: Yes Status: Chronic Onset Date: 11/15/14 Code(s): G20 - Parkinson's disease (4) Paraplegia Current Visit: Yes Status: Chronic Onset Date: 04/06/14 Code(s): G82.20 - Paraplegia, unspecified - Assessment / Plan Additional Assessment/Plan Details: Probably this diarrhea is antibiotic associated although C. difficile, and other stool workup is negative to this point. I will try to bulk the stools up with some cholestyramine. Hold off on bowel regimen. PT and OT ordered per patient request. Hopeful for discharge in the next 24 hours.
[2017-06-29 00:30] VITALS: O2SAT 90
[2017-06-29] MEDS: PANTOPRAZOLE 40 MG TABLET PO SCH (06:49)
[2017-06-29 07:03] VITALS: RESP 18
[2017-06-29] MEDS: Carbidopa/Levodopa 25/100mg Tab PO SCH (07:59)
[2017-06-29] MEDS: FINASTERIDE 5 MG TABLET PO SCH (07:59)
[2017-06-29] MEDS: Metoprolol TARTRATE Tab 25 MG TAB PO SCH (07:59)
[2017-06-29] MEDS ORDERED: CHOLESTYRAMINE/SUCROSE 4 GM PACKET PO SCH ×2 (09:00→21:00)
[2017-06-29 12:05] VITALS: BP 127/68; TEMP 97.4
[2017-06-29] MEDS ORDERED: CHOLESTYRAMINE/SUCROSE 4 GM PACKET PO ONE (12:07)
[2017-06-29] MEDS: Sodium Chloride 0.9% 1,000 ML PRIMARY IV SCH (12:10)
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
--- NOTE | 2017-07-01 11:05 | PTI REPORT ---
Thank you for the referral of Du Rivera. He was seen on 06/29/17 for an inpatient evaluation. SUBJECTIVE: The patient is a 77-year-old male. The patient reports he was admitted to the hospital on morning after having severe abdominal cramps as well as diarrhea from his colostomy bag which created a wound, per his , down into his left groin area. Per the patient's , she has been treating it with an ointment that had previously been prescribed by a different physician and believes it is doing well. The patient reports he is feeling much better today and is under the impression that he may be able to go home today. PAST MEDICAL HISTORY: Past medical history can be found in the patient's medical record. OBJECTIVE FINDINGS: This patient is very well known to us with his past medical history of paralysis. He is 75% dependent for upper extremity dressing and dependent for lower extremity dressing and abdominal binder dressing. The patient requires the Roc lift for transfers from supine in bed into his power wheelchair which he uses as his primary mode of transportation. Upon inspection, the wound area that was described by the patient and the patient's in the left groin area at this time is healed. We had previously seen the patient due to skin flap repair on his left ischial tuberosity and upon inspection, it continues to show healthy, unopened skin at this time. ASSESSMENT: Problem List: Risk for skin breakdown Physical Therapy Goals: To be met by discharge from inpatient: Therapy will assist nursing with all dependent transfers using a Roc lift. No slide board transfers are to be used due to his past medical history of the skin flap protocol. TREATMENT PLAN: Patient will be seen on a PRN basis only to assist nursing with dressing and transferring activities as well as for nursing education on pressure relief while in bed. INITIAL TREATMENT: Treatment today consisted of the initial evaluation followed by assistance with all dressing activities and dependent transfer into his power chair. DONTE
== END 2017-06-29 15:46 | disposition home or self-care (01) ==
LOC: MED/SURG 08:05 → ER 08:05 → MED/SURG 12:25
PROVIDERS: ADMIT Internal Medicine; ATTEND Internal Medicine

== ENCOUNTER 2017-08-13 14:57 | Inpatient (IN) ==
[2017-08-13] MEDS ORDERED: Sodium Chloride 0.9% 1,000 ML PRIMARY IV ONE (15:20)
[2017-08-13] MEDS ORDERED: KETOROLAC 15 MG/1 ML VIAL IVP ONE (15:20)
[2017-08-13] MEDS ORDERED: ONDANSETRON 4 MG/2 ML VIAL IVP ONE (15:20)
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
[2017-08-13 15:46] LABS: BASOPHILS # (AUTO) 0.01 10*3/UL; BASOPHILS % (AUTO) 0.2 % (0-1); EOSINOPHILS # (AUTO) 0.07 10*3/UL; EOSINOPHILS % (AUTO) 1.2 % (0-8); Hematocrit [HCT] 36.2 % (42.0-52.0); Hemoglobin [HGB] 11.6 g/dL (14.0-18.0); LYMPHOCYTES # (AUTO) 0.84 10*3/uL; MEAN CORPUSCULAR HEMOGLOBIN 30.2 PG (27-31); MEAN CORPUSCULAR VOLUME 94.3 FL (80-90); MEAN PLATELET VOLUME 10.3 FL (7.4-12.2); MONOCYTES # (AUTO) 0.28 10*3/UL (0.3-0.8); MONOCYTES % (AUTO) 4.8 % (5-15); NEUTROPHILS # (AUTO) 4.59 10*3/UL; NEUTROPHILS % (AUTO) 79.1 % (50-80); RED BLOOD COUNT 3.84 10^6/uL (4.70-6.10)
[2017-08-13 15:50] LABS: PLATELET MORPHOLOGY COMMENT NORMAL MORPHOLOGY (NORM); RBC MORPHOLOGY COMMENT NORMAL MORPHOLOGY (NORM); WBC MORPHOLOGY COMMENT NORMAL MORPHOLOGY (NORM)
[2017-08-13 15:58] LABS: BLOOD UREA NITROGEN 28 mg/dL (7-22); SERUM ALBUMIN 3.6 g/dL (3.5-4.8)
--- NOTE | 2017-08-13 16:04 | DI ---
XR CXR 1VW,08/13/2017 3:20 PM: Clinical History: Fever Previous Exam: June 27, 2017 Findings: 2 AP views of the chest are obtained, and demonstrate clear lungs. The cardiomediastinum is prominent . Stable postsurgical changes are seen of the right shoulder joint. Postsurgical changes are seen of the neck prior thyroid surgery. There are old rib fractures noted with postsurgical changes in the right axilla. Impression: No acute cardiopulmonary disease.
[2017-08-13 16:05] LABS: VENOUS PH 7.3 (7.32-7.42)
[2017-08-13] MEDS ORDERED: cefTRIAXone Inj 2 GM in Sodium Chloride 0.9% 100 ML IV ONE (16:31)
--- NOTE | 2017-08-13 17:31 | EKG ---
[address] [place] [address] Measurements Intervals [place] Rate: 41 P: 94 VT: 159 QRS: 77 QRSD: 108 T: 12 QT: 497 QTc: 433 Interpretive Statements SINUS BRADYCARDIA MODERATE T-WAVE ABNORMALITY, CONSIDER ANTERIOR ISCHEMIA [-0.1+ mV T WAVE IN V3/V4] Compared to ECG 01/03/2017 17:17:15 Possible ischemia now present Sinus rhythm no longer present T-wave abnormality still present Electronically Signed On 08-14-17 09:45:03 [facility] by Seymour Stone MD [email or web address]
[2017-08-13] MEDS ORDERED: LIDOCAINE W/ SODIUM BICARB 0.5 ML SYR SUBD PRN (18:13)
[2017-08-13] MEDS ORDERED: Lactated Ringers 1,000 ML PRIMARY IV SCH (18:13)
[2017-08-13] MEDS ORDERED: LIDOCAINE HCL 2 % 10 ML JELLY URO-JECT TOPICAL PRN (18:13)
[2017-08-13] MEDS ORDERED: NORMAL SALINE 10 ML SYRINGE FLUSH IVP PRN (18:13)
[2017-08-13] MEDS: Sodium Chloride 0.9% 1,000 ML PRIMARY IV SCH (19:00)
[2017-08-13] MEDS: Cefepime Inj 2 GM in Sodium Chloride 0.9% 100 ML IV SCH (19:04)
[2017-08-13] MEDS: HEPARIN 5000 UNIT/1 ML SUBCUT SCH (20:02)
[2017-08-13] MEDS: Carbidopa/Levodopa 25/100mg Tab PO SCH (21:56)
[2017-08-13] MEDS: CHOLESTYRAMINE/SUCROSE 4 GM PACKET PO SCH (21:56)
[2017-08-13 22:23] LABS: ABG PH 7.522 (7.35-7.45); COLLECTION SITE LR
[2017-08-13 22:24] LABS: ABG BASE EXCESS -7 MMOL/L (-2-2); ABG OXYGEN SATURATION 99 % (90-100); ABG PO2 65 MMHG (65-75); ALLEN TEST POSS
--- NOTE | 2017-08-14 00:01 | PDOC ---
HPI - History of Present Illness History of Present Illness: This very nice 77-year-old gentleman well-known to our service which also has become a personal friend over the years taking care of him. Presents the ER with increased confusion over the last 4 days and, with some slurred speech hard to awaken was taken in by his mary anne in the ER labs were drawn most likely patient is uroseptic with some hypotension. He has stated to me that he would like to be a DO NOT RESUSCITATE him and his if made the decision and no intubation and no CPR and to let nature take its course in case he would stop breathing or his heart would stop I told him that I would respect his wishes will be admitting the patient for urosepsis will be started on vancomycin and cefepime considering what he grew last admissions on urine culture. He denies any chest pain nausea vomiting and any other kind of pain Past Medical History Medical History: 1. T12 paraplegia. 2. Neurogenic bowel and neurogenic bladder. He is status post diverting ostomy and does self-catheterization at home. 3. Hypertension. 4. Chronic and recurrent urinary tract infection. 5. Obstructive sleep apnea, on CPAP. 6. Hypercholesterolemia. 7. History of DVT. 8. History of atrial flutter. 9. History of Pseudomonas bacteremia in 2014 was treated with antibiotics for 3 weeks. 10. Parkinsonism, on when necessary Sinemet, mostly taken at night. 11. 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 Ventriculostomy. 2. Back surgery including Hanson rods , back surgery overall x4. 3. Cholecystectomy in March of 2014. 4. EGD with duodenal ulcer in May 2015. 5. Right rib resection with a benign tumor. 6. Right carotid endarterectomy. 7. Right shoulder surgery. 8. Colostomy. 9. Myocutaneous flap right initial tuberosity. Pertinent Family History: Father of heart problems. Mother of old age. One sibling of a stroke. Past Social History: Does not smoke. Drinks occasionally. 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 Has 2 children described as healthy. 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 Tobacco Use: Never Smoker In the Past 12 Months, Have Used or Abuse Any of the Following Substance: None Medication / Allergies Home Medications: Home Medications Medication Instructions Recorded Confirmed Type atorvastatin 40 mg tablet 40 mg PO QHS #90 tab 06/03/17 06/27/17 Rx metoprolol tartrate 25 mg tablet 25 mg PO BID #180 tab 06/03/17 06/27/17 Rx Lidocaine Uro-Ject 2% [Xylocaine 10 ml TOPICAL ONCE PRN jelly 06/15/17 Rx Uro-Ject 2%] Pantoprazole Sodium [Protonix] 40 mg PO AC BK tab 06/15/17 06/27/17 Rx Cholestyramine Packet [Questran 4 gm PO BID #60 packet 06/29/17 Rx Packet] carbidopa 25 mg-levodopa 100 mg 1 tab PO BID #180 tab 07/01/17 07/01/17 Rx tablet finasteride 5 mg tablet 5 mg PO QDAY #90 tab 07/01/17 07/01/17 Rx rotigotine 6 mg/24 hour 12 mg TRANSDERM QDAY #180 patch 07/01/17 08/13/17 Rx transdermal 24 hour patch Allergies/Adverse Reactions: Allergies 3 Allergy/AdvReac Type Severity Reaction Status Date / Time No Known Allergies Allergy Verified 07/01/17 13:13 Review of Systems - Review of Systems All Systems: Reviewed & No Additional Complaints Except as Stated - Respiratory Respiratory: DENIES: Negative System Review, Cough, Sputum, Dyspnea At Rest, Dyspnea with Exertion, Pleuritic Pain, Hemoptysis, Wheezing, Other, See HPI - Cardiovascular Cardiovascular: DENIES: Negative System Review, Chest Pain, Edema, Syncope, Palpitations, Orthopnea, Paroxysmal Nocturnal Dyspnea, Other, See HPI - Gastrointestinal Gastrointestinal / Abdominal: DENIES: Negative System Review, Nausea, Vomiting, Diarrhea, Constipation, Abdominal Pain, Bloody Stool, Poor Appetite, Heartburn, Regurgitation, Bloating, Lactose Intolerance, Melena, Bright Red Blood per Rectum, Other, See HPI - Genitourinary Genitourinary: DENIES: Negative System Review, Pain, Burning, Hematuria, Incontinence, Urgency, Hesitant Stream, Decreased Stream, Nocutria, Discharge, Sexual Dysfunction, Other, See HPI Exam - Vitals Vital Signs: Vital Signs Temperature 91.0 F Temperature Source Oral Pulse Rate [Pulse Oximeter] 51 Pulse Rate 39 Respiratory Rate 6 Blood Pressure [Right Arm] 108/61 Blood Pressure 94/59 Pulse Ox 88 Oxygen Delivery Method Room Air Height 6 ft Weight 220 lb - General General Appearance: Cooperative, Mild Distress - Head Head Exam: Normal Inspection - Neck Neck Exam: Normal Inspection, Full ROM, No Tenderness, No Lymphadenopathy, No Thyromegaly, JVP is not Raised - Respiratory Respiratory Exam: POSITIVE: Clear to Auscultation - Bilaterally, Breathing Non Labored, Normal To Percussion, Normal to Percussion and Palpation - Cardiovascular Cardiovascular Exam: POSITIVE: RRR, No Murmur, No Clicks, No Gallops, No Rubs, PMI Non-Displaced - GI/Abdominal GI/Abdominal Exam: POSITIVE: Normal Bowel Sounds, Non Tender, Non Distended, Soft, No Masses, No Hepatomegaly, No Splenomegaly, No Organomegaly - External Exam: POSITIVE: Deferred Exam: POSITIVE: Deferred - Extremities Extremities Exam: POSITIVE: Normal Inspection, Full ROM, Normal Capillary Refill , No Clubbing Present, No Edema Present, No Cyanosis Present, Negative Thao's sign, Dosalis Pedis Pulses - Stong & Regular Results - Labs CBC and BMP: 08/13/17 15:43 08/13/17 15:43 Assessment and Plan - Patient Problems (1) Hypotension Current Visit: Yes Status: Acute Comment: Most likely from urosepsis - Assessment / Plan Additional Assessment/Plan Details: Patient most likely urosepsis we'll start cefepime and vancomycin IV fluid resuscitation consulted eICU to help manage. Continue other usual meds rewarm patient aggressively.
[2017-08-14 01:27] LABS: ABG PCO2 32 MMHG (34-38); ABG PH 7.372 (7.35-7.45); COLLECTION SITE LR
[2017-08-14 01:28] LABS: ABG BASE EXCESS -7 MMOL/L (-2-2); ABG OXYGEN SATURATION 96 % (90-100); ABG PO2 78 MMHG (65-75); ALLEN TEST POSS
[2017-08-14] MEDS: HEPARIN 5000 UNIT/1 ML SUBCUT SCH ×3 (02:36→18:06)
[2017-08-14] MEDS: Cefepime Inj 2 GM in Sodium Chloride 0.9% 100 ML IV SCH ×3 (02:37→18:20)
[2017-08-14 05:17] LABS: BASOPHILS # (AUTO) 0 10*3/UL; BASOPHILS % (AUTO) 0 % (0-1); EOSINOPHILS # (AUTO) 0.04 10*3/UL; EOSINOPHILS % (AUTO) 0.7 % (0-8); Hemoglobin [HGB] 10.8 g/dL (14.0-18.0); LYMPHOCYTES # (AUTO) 0.46 10*3/uL; MEAN CORPUSCULAR HEMOGLOBIN 29.8 PG (27-31); MEAN CORPUSCULAR HGB CONC 31.8 g/dL (33-37); MEAN CORPUSCULAR VOLUME 93.7 FL (80-90); MEAN PLATELET VOLUME 10.9 FL (7.4-12.2); MONOCYTES # (AUTO) 0.33 10*3/UL (0.3-0.8); MONOCYTES % (AUTO) 5.6 % (5-15); NEUTROPHILS # (AUTO) 5.09 10*3/UL; NEUTROPHILS % (AUTO) 85.7 % (50-80); RED BLOOD COUNT 3.63 10^6/uL (4.70-6.10)
[2017-08-14 05:30] LABS: BLOOD UREA NITROGEN 29 mg/dL (7-22); BUN/CREATININE RATIO 36.25 (6-20); SERUM ALBUMIN 2.9 g/dL (3.5-4.8)
[2017-08-14 05:39] LABS: PLATELET MORPHOLOGY COMMENT NORMAL MORPHOLOGY (NORM); RBC MORPHOLOGY COMMENT NORMAL MORPHOLOGY (NORM); WBC MORPHOLOGY COMMENT NORMAL MORPHOLOGY (NORM)
[2017-08-14] MEDS: Carbidopa/Levodopa 25/100mg Tab PO SCH ×2 (09:45→20:53)
[2017-08-14] MEDS: FINASTERIDE 5 MG TABLET PO SCH (09:45)
[2017-08-14] MEDS: Pantoprazole Inj 40 MG in Normal Saline Flush 10 ML IVP SCH (09:45)
[2017-08-14] MEDS: CHOLESTYRAMINE/SUCROSE 4 GM PACKET PO SCH ×2 (09:45→20:53)
[2017-08-14] MEDS: ROTIGOTINE 6 MG TRANSDERM SCH (09:45)
--- NOTE | 2017-08-14 11:08 | PDOC(PROG) ---
Interval History: Patient is doing much better today BiPAP bridged him through surprisingly E is speaking in full sentences more his normal self is not as confused color is improved blood pressures improved as well denies any pain Objective : Data - Labs CBC and BMP: 08/14/17 04:34 08/14/17 04:34 Objective : Exam - General General Appearance: No Acute Distress, Cooperative - Head Head Exam: Normal Inspection, Normocephalic, Atraumatic - ENT ENT Exam: Normal Exam, Normal External Ear Exam, Normal Oropharynx, TM's Normal Bilaterally, Mucous Membranes Moist - Respiratory Respiratory Exam: Clear to Auscultation - Bilaterally, Breathing Non Labored, Normal To Percussion, Normal to Percussion and Palpation - Cardiovascular Cardiovascular Exam: RRR, No Murmur, No Clicks, No Gallops, No Rubs, PMI Non- Displaced - GI/Abdominal GI/Abdominal Exam: Normal Bowel Sounds, Non Tender, Non Distended, Soft, No Masses, No Hepatomegaly, No Splenomegaly, No Organomegaly - Extremities Extremities Exam: No Clubbing Present, No Edema Present Assessment and Plan - Patient Problems (1) Sepsis associated hypotension Current Visit: Yes Status: Acute Comment: Improving with fluid resuscitation continue IV cefepime and vancomycin urine cultures blood culture still pending Code(s): A41.9 - Sepsis, unspecified organism (2) Hypotension Current Visit: Yes Status: Acute Comment: Improved continue IV fluids hopefully today urine output will cone picker we will bolus him 1 more liter (3) UTI (urinary tract infection) Current Visit: Yes Status: Acute Comment: Continue IV vancomycin and cefepime to cover Pseudomonas and MRSA Code(s): N39.0 - Urinary tract infection, site not specified (4) Respiratory failure Current Visit: Yes Status: Acute Comment: Improving patient now on nasal cannula not needing BiPAP support repeat VBG Code(s): J96.90 - Respiratory failure, unspecified, unspecified whether with hypoxia or hypercapnia
[2017-08-14] MEDS ORDERED: Sodium Chloride 0.9% 1,000 ML ONE (11:15)
[2017-08-14] MEDS: Sodium Chloride 0.9% 1,000 ML PRIMARY IV SCH ×2 (11:20→22:18)
[2017-08-14 13:32] LABS: VENOUS PH 7.38 (7.32-7.42)
[2017-08-14] MEDS ORDERED: Sodium Chloride 0.9% 1,000 ML PRIMARY IV ONE (16:14)
[2017-08-14] MEDS: LACTATED RINGERS IV SCH (19:05)
[2017-08-14] MEDS: VANCOMYCIN IV SCH (19:05)
[2017-08-14] MEDS ORDERED: Sodium Chloride 0.9% 1,000 ML IV SCH (22:45)
[2017-08-15] MEDS ORDERED: FUROSEMIDE 10 MG/1 ML - 2 ML VIAL IVP ONE (02:01)
[2017-08-15] MEDS: Cefepime Inj 2 GM in Sodium Chloride 0.9% 100 ML IV SCH ×2 (02:02→09:14)
[2017-08-15] MEDS: HEPARIN 5000 UNIT/1 ML SUBCUT SCH ×3 (02:02→17:42)
[2017-08-15 04:54] LABS: MEAN CORPUSCULAR HEMOGLOBIN 30.8 PG (27-31); MEAN CORPUSCULAR HGB CONC 32.4 g/dL (33-37); MEAN CORPUSCULAR VOLUME 95.2 FL (80-90); MEAN PLATELET VOLUME 10.6 FL (7.4-12.2); RED BLOOD COUNT 3.57 10^6/uL (4.70-6.10)
[2017-08-15 06:11] LABS: BLOOD UREA NITROGEN 25 mg/dL (7-22); BUN/CREATININE RATIO 27.77 (6-20); SERUM ALBUMIN 2.9 g/dL (3.5-4.8)
[2017-08-15] MEDS: VANCOMYCIN IV SCH (07:35)
[2017-08-15] MEDS: LACTATED RINGERS IV SCH (07:35)
[2017-08-15] MEDS: Pantoprazole Inj 40 MG in Normal Saline Flush 10 ML IVP SCH (08:59)
[2017-08-15] MEDS: CHOLESTYRAMINE/SUCROSE 4 GM PACKET PO SCH ×2 (09:00→21:16)
[2017-08-15] MEDS: Carbidopa/Levodopa 25/100mg Tab PO SCH ×2 (09:00→21:16)
[2017-08-15] MEDS: FINASTERIDE 5 MG TABLET PO SCH (09:00)
[2017-08-15] MEDS: ROTIGOTINE 6 MG TRANSDERM SCH (09:00)
[2017-08-15] MEDS: D5W 1,000 ML PRIMARY IV SCH (09:14)
--- NOTE | 2017-08-15 12:33 | PDOC(PROG) ---
Interval History: Patient is doing much better today he still needing a lot of warming but the skin feels warm to touch his urine output has increased and overall does not appear to be confused hemodynamically stable Objective : Data - Labs CBC and BMP: 08/15/17 04:25 08/15/17 04:25 Objective : Exam - General General Appearance: No Acute Distress - Respiratory Respiratory Exam: Clear to Auscultation - Bilaterally, Breathing Non Labored, Normal To Percussion, Normal to Percussion and Palpation - Cardiovascular Cardiovascular Exam: RRR, No Murmur, No Clicks, No Gallops, No Rubs, PMI Non- Displaced - GI/Abdominal GI/Abdominal Exam: Normal Bowel Sounds, Non Tender, Non Distended, Soft, No Masses, No Hepatomegaly, No Splenomegaly, No Organomegaly Assessment and Plan - Patient Problems (1) Sepsis associated hypotension Current Visit: Yes Status: Acute Comment: Resolving improved urinary output fluids are stopped now she is on D5 the for hypernatremia. Repeat CMP this afternoon micro-patient is going to Escherichia coli in the urine ice discussed the case with infectious disease and he recommends Ancef 2 g IV every 8 and may be transition to Keflex 1 g by mouth 3 times a day and in about 5-7 days Code(s): A41.9 - Sepsis, unspecified organism (2) Hypotension Current Visit: Yes Status: Acute Comment: This is resolved blood pressure within normal limits at present time (3) UTI (urinary tract infection) Current Visit: Yes Status: Acute Comment: See above Code(s): N39.0 - Urinary tract infection, site not specified (4) Respiratory failure Current Visit: Yes Status: Acute Comment: Resolved last the gases within normal limits a little low CO2 Code(s): J96.90 - Respiratory failure, unspecified, unspecified whether with hypoxia or hypercapnia (5) Hypernatremia Current Visit: Yes Status: Acute Comment: Patient is on D5W plus a 20 Lasix IV repeat labs this afternoon Code(s): E87.0 - Hyperosmolality and hypernatremia - Assessment / Plan Additional Assessment/Plan Details: Discussed with nursing and infectious disease Dr. Lopez and patient
[2017-08-15] MEDS: ceFAZolin Inj 2gm (Premix) 2 GM/50 ML BAG IV SCH ×2 (13:14→19:24)
[2017-08-15 14:06] LABS: BLOOD UREA NITROGEN 23 mg/dL (7-22); BUN/CREATININE RATIO 28.75 (6-20); SERUM ALBUMIN 3.1 g/dL (3.5-4.8)
[2017-08-16] MEDS: HEPARIN 5000 UNIT/1 ML SUBCUT SCH ×2 (02:27→09:26)
[2017-08-16] MEDS: ceFAZolin Inj 2gm (Premix) 2 GM/50 ML BAG IV SCH ×2 (03:07→10:17)
[2017-08-16 05:26] LABS: Hematocrit [HCT] 34.4 % (42.0-52.0); Hemoglobin [HGB] 11.2 g/dL (14.0-18.0); MEAN CORPUSCULAR HEMOGLOBIN 30.4 PG (27-31); MEAN CORPUSCULAR HGB CONC 32.6 g/dL (33-37); MEAN CORPUSCULAR VOLUME 93.5 FL (80-90); MEAN PLATELET VOLUME 10.7 FL (7.4-12.2); RED BLOOD COUNT 3.68 10^6/uL (4.70-6.10)
[2017-08-16 05:41] LABS: BLOOD UREA NITROGEN 23 mg/dL (7-22); BUN/CREATININE RATIO 25.55 (6-20); SERUM ALBUMIN 3.3 g/dL (3.5-4.8)
[2017-08-16] MEDS: D5W 1,000 ML PRIMARY IV SCH (07:45)
[2017-08-16] MEDS: CHOLESTYRAMINE/SUCROSE 4 GM PACKET PO SCH (09:26)
[2017-08-16] MEDS: Pantoprazole Inj 40 MG in Normal Saline Flush 10 ML IVP SCH (09:26)
[2017-08-16] MEDS: FINASTERIDE 5 MG TABLET PO SCH (09:26)
[2017-08-16] MEDS: Carbidopa/Levodopa 25/100mg Tab PO SCH (09:26)
[2017-08-16] MEDS: ROTIGOTINE 6 MG TRANSDERM SCH (09:27)
--- NOTE | 2017-08-16 10:21 | PDOC(PROG) ---
Interval History: Patient is doing well no complaints apparently he was on the phone all day yesterday and night did not get much sleep patient looks a little tired today but has no complaints no chest pain nausea or shortness of breath. Respiratory linn he remains stable Objective : Data - Labs CBC and BMP: 08/16/17 05:05 08/16/17 05:05 Objective : Exam - General General Appearance: No Acute Distress, Cooperative - Respiratory Respiratory Exam: Clear to Auscultation - Bilaterally, Breathing Non Labored, Normal To Percussion, Normal to Percussion and Palpation - Cardiovascular Cardiovascular Exam: RRR, No Murmur, No Clicks, No Gallops, No Rubs, PMI Non- Displaced - GI/Abdominal GI/Abdominal Exam: Normal Bowel Sounds, Non Tender, Non Distended, Soft, No Masses, No Hepatomegaly, No Splenomegaly, No Organomegaly - Neurological Neurological Exam: Alert, Oriented x 3 - Psychiatric Psychiatric Exam: Normal Affect, Normal Mood Assessment and Plan - Patient Problems (1) Sepsis associated hypotension Current Visit: Yes Status: Acute Comment: Resolving discussed the case with Dr. Pinon patient is now on Ancef 2 g IV every 8 monitor her kidney function will be needing at least 7 days of IV before transitioning to by mouth and this would need to be reevaluated Code(s): A41.9 - Sepsis, unspecified organism (2) Hypotension Current Visit: Yes Status: Acute Comment: Resolved now patient's normal blood pressures back will resume beta amilcar (3) UTI (urinary tract infection) Current Visit: Yes Status: Acute Comment: Continue IV antibiotics Escherichia coli growing from cultures Code(s): N39.0 - Urinary tract infection, site not specified (4) Respiratory failure Current Visit: Yes Status: Acute Comment: Resolved with BiPAP Code(s): J96.90 - Respiratory failure, unspecified, unspecified whether with hypoxia or hypercapnia (5) Hypernatremia Current Visit: Yes Status: Acute Comment: Resolved Code(s): E87.0 - Hyperosmolality and hypernatremia
[2017-08-16] MEDS ORDERED: LIDOCAINE HCL 2 % 10 ML JELLY URO-JECT TOPICAL PRN ×3 (10:23→21:37)
[2017-08-16] MEDS ORDERED: LIDOCAINE W/ SODIUM BICARB 0.5 ML SYR SUBD PRN ×2 (10:23→21:37)
[2017-08-16] MEDS ORDERED: NORMAL SALINE 10 ML SYRINGE FLUSH IVP PRN ×2 (10:23→21:37)
--- NOTE | 2017-08-16 15:10 | PTI REPORT ---
Thank you for the referral of Du Rivera. He was seen on 08/15/16 for an inpatient evaluation secondary to bilateral heel wounds. SUBJECTIVE: The patient is a 77-year-old male. According to the patient's ICU nurse, she states that the patient had a very poor night due to lab values as well as his general health which was in a fatal state; however, the patient began recuperating throughout the night and is doing much better today. According to the patient, he states the presence of his heel wounds is more than likely due to the shoes he has been wearing at home as well as the pressure due to the increased swelling in bilateral lower extremities. PAST MEDICAL HISTORY: Past medical history can be found in the patient's medical record. OBJECTIVE FINDINGS: The patient has a long history with physical therapy. He is a T12 paraplegic for the past several decades and has no feeling in his bilateral lower extremities. The patient presents with bilateral lower extremity pressure ulcers on the calcaneal/Achilles tendon insertion point. There are photos in the nursing notes. Please refer to these for further detail. There is no open drainage at this time. The patient demonstrates at least a Grade III pressure ulcer at this time. ASSESSMENT: Problem List: High risk for further pressure ulcers due to his immobility and his T12 paraplegia Open wounds Risk of infection Physical Therapy Goals: To be met by discharge from inpatient: Patient will promote clean wound healing. Patient will promote pressure relieving techniques. TREATMENT PLAN: Patient will be seen on a PRN basis for wound care as well as assistance with pressure relieving techniques. The patient will also be issued bilateral lower extremity foot stabilizers to help prevent pressure on bony surfaces on the lower extremities. INITIAL TREATMENT: Treatment today consisted of the initial evaluation followed by issuing the patient foot stabilizers on bilateral lower extremities. Both areas were cleansed with wound cleanser followed by dressing of Mepilex to keep the area clean and dry with the dressings provided by the third floor. The therapist educated the patient as well as the nursing staff on pressure relieving techniques. DONTE
[2017-08-16 16:47] LABS: BLOOD UREA NITROGEN 20 mg/dL (7-22); SERUM ALBUMIN 3.3 g/dL (3.5-4.8)
[2017-08-16 16:53] LABS: VENOUS PH 7.44 (7.32-7.42)
[2017-08-16] MEDS ORDERED: D5W 1,000 ML PRIMARY IV SCH ×2 (17:30→21:37)
[2017-08-16] MEDS ORDERED: FUROSEMIDE 10 MG/1 ML - 4 ML IVP ONE (17:31)
--- NOTE | 2017-08-16 18:12 | DI ---
EXAM: CT Abdomen and Pelvis With Intravenous Contrast CLINICAL HISTORY: Decreased bowel sounds. Confusion. TECHNIQUE: Axial computed tomography images of the abdomen and pelvis with intravenous contrast. COMPARISON: 06/27/17. FINDINGS: Small bilateral pleural effusions. Compressive atelectasis. Also suspect infectious lower lobe infiltrates. Mild cardiomegaly. Mild peripancreatic edema suggesting pancreatitis. Recommend correlation with enzymes. 2.5 cm mid zone left renal cyst. Bilateral renal hypodensities that are too small to characterize. Distal colonic resection with left abdominal colostomy. Diverticulosis coli. Suspect mild acute diverticulitis just proximal to the ostomy site. No free air or abscess. Cholecystectomy. Thick-walled urinary bladder decompressed by Conklin catheter. Aortoiliac atherosclerosis without aneurysm. Chronic ununited left femoral neck fracture, stable in the interval. ORIF of right femur. IMPRESSION: Acute pancreatitis. Suspect mild diverticulitis of the colon just proximal to the left mid abdominal ostomy site. Other incidental findings as detailed well.
[2017-08-16] MEDS ORDERED: HEPARIN 5000 UNIT/1 ML SUBCUT SCH (18:13)
[2017-08-16] MEDS ORDERED: ceFAZolin Inj 2gm (Premix) 2 GM/50 ML BAG IV SCH (18:30)
--- NOTE | 2017-08-16 18:31 | DI ---
EXAM: XR Chest, 1 View CLINICAL HISTORY: Infusion TECHNIQUE: Frontal view of the chest. COMPARISON: CT abdomen and pelvis of same date FINDINGS: Small bilateral pleural effusions and associated compressive atelectasis are better demonstrated on recent CT of the abdomen and pelvis. There are also bibasilar airspace infiltrates suspicious for pneumonia. Mild cardiomegaly. Right axillary clips. Incompletely assessed right glenohumeral joint arthroplasty hardware. IMPRESSION: Small bilateral pleural effusions with atelectasis and consolidation. Possible infectious infiltrates.
[2017-08-16] MEDS ORDERED: Magnesium Sulfate 2gm (Premix) 2 GM/50 ML BAG IV ONE (20:09)
[2017-08-16] MEDS ORDERED: Ertapenem Inj 1 GM in Sodium Chloride 0.9% 100 ML IV SCH (20:30)
[2017-08-16] MEDS ORDERED: CHOLESTYRAMINE/SUCROSE 4 GM PACKET PO SCH (21:00)
[2017-08-16] MEDS ORDERED: ATORVASTATIN 40 MG TABLET PO SCH (21:00)
[2017-08-16] MEDS ORDERED: Metoprolol TARTRATE Tab 25 MG TAB PO SCH (21:00)
[2017-08-16] MEDS ORDERED: Carbidopa/Levodopa 25/100mg Tab PO SCH (21:00)
[2017-08-16 21:15] LABS: LIPASE 2072 IU/L (23-300)
[2017-08-16] MEDS ORDERED: Sodium Chl 0.45% 1,000 ML PRIMARY IV ONE (23:17)
[2017-08-17] MEDS: HEPARIN 5000 UNIT/1 ML SUBCUT SCH ×2 (02:23→09:00)
[2017-08-17] MEDS ORDERED: PANTOPRAZOLE 40 MG TABLET PO SCH ×2 (07:00)
[2017-08-17] MEDS ORDERED: Pantoprazole Inj 40 MG in Normal Saline Flush 10 ML IVP SCH (09:00)
[2017-08-17] MEDS ORDERED: ROTIGOTINE TRANSDERM SCH (09:00)
[2017-08-17] MEDS ORDERED: Metoprolol TARTRATE Tab 25 MG TAB PO SCH (09:00)
[2017-08-17] MEDS ORDERED: FINASTERIDE 5 MG TABLET PO SCH ×2 (09:00)
[2017-08-17] MEDS ORDERED: ROTIGOTINE 6 MG TRANSDERM SCH (09:00)
[2017-08-17] MEDS ORDERED: Carbidopa/Levodopa 25/100mg Tab PO SCH (09:00)
[2017-08-17] MEDS ORDERED: CHOLESTYRAMINE/SUCROSE 4 GM PACKET PO SCH (09:00)
[2017-08-17] MEDS ORDERED: DIAZEPAM 10 MG/2 ML (5 MG/1 ML) CARPUJECT IVP ONE (11:15)
[2017-08-17] MEDS ORDERED: DIAZEPAM 10 MG/2 ML (5 MG/1 ML) CARPUJECT ONE (11:16)
[2017-08-17] MEDS ORDERED: DIAZEPAM 10 MG/2 ML (5 MG/1 ML) CARPUJECT IVP PRN (12:30)
[2017-08-17] MEDS ORDERED: Acetaminophen 1000mg Inj 1,000 MG/100 ML VIAL IV PRN (12:30)
--- NOTE | 2017-08-17 13:40 | PDOC(PROG) ---
Date and Time of Service: 08/17/2017, 1335 Interval History: Patient not verbally responsive today. Discussed with , Vanesa, and his daughter, present at bedside. The patient has been very specific, no more blood draws, no more testing, he wants to be kept comfortable and treated for pain and primary symptoms only. He does not want any therapy and he knows the end result will be that he will . He accepts that reality and his family agrees. Objective : Data - Labs CBC and BMP: 08/16/17 05:05 08/16/17 16:30 Objective : Exam - General Additional General Exam Details: Vital Signs - Last Taken Temperature 98.7 F 08/17/17 11:00 Pulse Rate 95 08/17/17 11:00 Respiratory Rate 22 08/17/17 11:00 Blood Pressure 105/55 08/17/17 11:00 Pulse Ox 88 08/17/17 11:00 Not responsive verbally. Minimal pain response. - ENT ENT Exam: Mucous Membranes Moist - Respiratory Respiratory Exam: Breathing Non Labored, Coarse Breath Sounds - Cardiovascular Cardiovascular Exam: RRR, No Murmur, No Clicks, No Gallops, No Rubs, No JVD - GI/Abdominal GI/Abdominal Exam: Normal Bowel Sounds, Non Distended, Soft Additional GI/Abdominal Exam Details: I felt the patient had a little tenderness with epigastric palpation as he did moan on exam. - Extremities Extremities Exam: No Clubbing Present, No Edema Present, No Cyanosis Present - Neurological Additional Neurological Exam Details: Responsive to pain stimuli, not speaking or responding verbally. Assessment and Plan - Patient Problems (1) Acute pancreatitis Current Visit: Yes Status: Acute Code(s): K85.90 - Acute pancreatitis without necrosis or infection, unspecified Qualifiers: Pancreatitis type: idiopathic Acute pancreatitis complication: no infection or necrosis Qualified Code(s): K85.00 - Idiopathic acute pancreatitis without necrosis or infection (2) Altered mental status Current Visit: Yes Status: Acute Code(s): R41.82 - Altered mental status, unspecified Qualifiers: Altered mental status type: coma Coma depth: Nikita coma 3-8 Coma timing : 24 hours or more after hospital admission Qualified Code(s): R40.2434 - Nikita coma scale score 3-8, 24 hours or more after hospital admission (3) UTI (urinary tract infection) Current Visit: Yes Status: Acute Comment: Present on admission Code(s): N39.0 - Urinary tract infection, site not specified Qualifiers: Urinary tract infection type: acute cystitis Hematuria presence: without hematuria Qualified Code(s): N30.00 - Acute cystitis without hematuria (4) Hypernatremia Current Visit: Yes Status: Acute Code(s): E87.0 - Hyperosmolality and hypernatremia (5) Sepsis associated hypotension Current Visit: Yes Status: Resolved Code(s): A41.9 - Sepsis, unspecified organism (6) Respiratory failure Current Visit: Yes Status: Resolved Code(s): J96.90 - Respiratory failure, unspecified, unspecified whether with hypoxia or hypercapnia Qualifiers: Chronicity: acute Respiratory failure complication: hypoxia Qualified Code(s): J96.01 - Acute respiratory failure with hypoxia (7) Hypotension Current Visit: Yes Status: Acute Qualifiers: Hypotension type: other hypotension type Qualified Code(s): I95.89 - Other hypotension (8) Diverticulitis Current Visit: Yes Status: Acute Code(s): K57.92 - Diverticulitis of intestine, part unspecified, without perforation or abscess without bleeding Qualifiers: Diverticulitis site: large intestine Diverticulitis bleeding: without bleeding Diverticulitis complication: without perforation or abscess Qualified Code(s): K57.32 - Diverticulitis of large intestine without perforation or abscess without bleeding (9) Paraplegia following spinal cord injury Current Visit: No Status: Chronic Code(s): G82.20 - Paraplegia, unspecified - Assessment / Plan Additional Assessment/Plan Details: The patient has a multitude of multiorgan problems, including resolved respiratory failure, pancreatitis, now diverticulitis as well, and hypernatremia , and his recovery is looking less and less likely. The patient has refused any further therapy. He does not want any further blood draws. He does not want any more medications. He knows that he will from these ailments. Currently the patient is sitting in a coma and is not verbally responsive. The patient's , Vanesa, says at this time she like all medications stopped unless they treatment of primary symptoms of pain and discomfort. She does not want a morphine drip at this time. She is leery about benzodiazepines although I did administer 1 dose of Valium as the patient had some head twitching and I cannot tell whether this could be some potential seizure activity. He does have a slight pain response with abdominal palpation. I discussed this with the family and they are aware. I wrote for some Tylenol for pain control as well. Food cart for family. If they wish to escalate to morphine and benzodiazepines, we will provide that. I will also write for scopolamine patch when necessary for respiratory secretions. Discussed in depth. Patient will of these issues in the hospital regardless of therapy or not. Again, family aware.
[2017-08-17] MEDS: NEUPRO TRANSDERM SCH (16:07)
[2017-08-17] MEDS ORDERED: Ertapenem Inj 1 GM in Sodium Chloride 0.9% 100 ML IV SCH (20:30)
[2017-08-17] MEDS ORDERED: ATORVASTATIN 40 MG TABLET PO SCH (21:00)
[2017-08-18] MEDS: MORPHINE SULFATE 4 MG/1 ML IVP PRN ×3 (02:49→22:26)
[2017-08-18 04:53] VITALS: TEMP 96.4
[2017-08-18] MEDS: NEUPRO TRANSDERM SCH (09:26)
--- NOTE | 2017-08-18 09:50 | PT.PROG ---
Progress Note Progress Note: S. The patient was not alert but his was with him, nursing reported he is on comfort care and approved us changing pt bandages on heels. O. change to dressing on bilateral heels. used meplix bandages to keep dry. A. Pt heels had skin abrasion type wounds grade 1. left slightly worse than right. I changed meplix bandages to keep the wound dry. No drainage was noted. P. Cont POC to change PRN
--- NOTE | 2017-08-18 15:58 | PDOC(PROG) ---
Date and Time of Service: 08/18/2017, 1554 Interval History: resting comfortably right now, no pain complaints not verbally responsive today was alert yesterday, ate, conversed with family family okay removing monitor and doing vitals Q2H for now. Objective : Data - Labs CBC and BMP: 08/16/17 05:05 08/16/17 16:30 Objective : Exam - General General Appearance: No Acute Distress, Cooperative Additional General Exam Details: Vital Signs - Last Taken Temperature 96.4 F L 08/18/17 04:52 Pulse Rate 87 08/18/17 13:00 Respiratory Rate 24 08/18/17 13:00 Blood Pressure 121/48 08/18/17 13:00 Pulse Ox 88 08/18/17 13:00 - Eye Eye Exam: No Scleral Icterus - Respiratory Respiratory Exam: Decreased Breath Sounds, Coarse Breath Sounds - Cardiovascular Cardiovascular Exam: RRR, No Murmur, No Clicks, No Gallops, No Rubs, No JVD - GI/Abdominal GI/Abdominal Exam: Non Tender, Non Distended, Soft, Diminished Bowel Sounds - Extremities Extremities Exam: No Clubbing Present, No Edema Present, No Cyanosis Present - Neurological Additional Neurological Exam Details: in coma, not verbally responsive Assessment and Plan - Patient Problems (1) Coma Current Visit: Yes Status: Acute Code(s): R40.20 - Unspecified coma Qualifiers: Coma depth: [place] coma 3-8 Coma timing: at hospital admission Qualified Code(s): R40.2433 - [place] coma scale score 3-8, at hospital admission (2) Acute pancreatitis Current Visit: Yes Status: Acute Code(s): K85.90 - Acute pancreatitis without necrosis or infection, unspecified Qualifiers: Pancreatitis type: idiopathic Acute pancreatitis complication: no infection or necrosis Qualified Code(s): K85.00 - Idiopathic acute pancreatitis without necrosis or infection (3) Altered mental status Current Visit: Yes Status: Acute Code(s): R41.82 - Altered mental status, unspecified Qualifiers: Altered mental status type: coma Coma depth: [place] coma 3-8 Coma timing : 24 hours or more after hospital admission Qualified Code(s): R40.2434 - [place] coma scale score 3-8, 24 hours or more after hospital admission (4) UTI (urinary tract infection) Current Visit: Yes Status: Acute Code(s): N39.0 - Urinary tract infection, site not specified Qualifiers: Urinary tract infection type: acute cystitis Hematuria presence: without hematuria Qualified Code(s): N30.00 - Acute cystitis without hematuria (5) Hypernatremia Current Visit: Yes Status: Acute Code(s): E87.0 - Hyperosmolality and hypernatremia (6) Sepsis associated hypotension Current Visit: Yes Status: Resolved Code(s): A41.9 - Sepsis, unspecified organism (7) Respiratory failure Current Visit: Yes Status: Resolved Code(s): J96.90 - Respiratory failure, unspecified, unspecified whether with hypoxia or hypercapnia Qualifiers: Chronicity: acute Respiratory failure complication: hypoxia Qualified Code(s): J96.01 - Acute respiratory failure with hypoxia (8) Hypotension Current Visit: Yes Status: Acute Qualifiers: Hypotension type: other hypotension type Qualified Code(s): I95.89 - Other hypotension (9) Diverticulitis Current Visit: Yes Status: Acute Code(s): K57.92 - Diverticulitis of intestine, part unspecified, without perforation or abscess without bleeding Qualifiers: Diverticulitis site: large intestine Diverticulitis bleeding: without bleeding Diverticulitis complication: without perforation or abscess Qualified Code(s): K57.32 - Diverticulitis of large intestine without perforation or abscess without bleeding (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 offered hospice evaluation and possibly home hospice, but family does not think that will work well with his current condition. just had back surgery as well.
[2017-08-18 17:44] VITALS: BP 158/54; RESP 24; O2SAT 87
[2017-08-19] MEDS: MORPHINE SULFATE 4 MG/1 ML IVP PRN (01:51)
--- NOTE | 2017-08-19 11:35 | DCSUMMARY ---
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 He develops several medical issues during the hospital stay, including acute respiratory failure which seemed to improve, pancreatitis, diverticulitis, and eventually coma. The patient was very clear and adamant that he wanted no further medical therapy other than treatment of his primary symptoms of pain and discomfort. He understood that regardless of medical therapy or edema to this primary symptoms of pain and discomfort, that he would succumb to these medical issues. 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 Exam - Vitals Vital Signs: Vital Signs Temperature 96.4 F Temperature Source Temporal Artery Scan Pulse Rate [Pulse Oximeter] 86 Pulse Rate 95 Respiratory Rate 24 Blood Pressure [Right Arm] 158/54 Blood Pressure [Left Arm] 111/64 Blood Pressure 94/59 Pulse Ox 87 Oxygen Flow Rate 2.5 Oxygen Delivery Method Room Air Height 6 ft Weight 219 lb 15.988 oz Data Peritnent Studies: 08/16/17 08/16/17 08/16/17 16:30 16:30 16:32 VBG pH 7.44 H VBG pCO2 26 L VBG HCO3 18 L VBG Base Excess -6 L Sodium 151 H Potassium 3.8 Chloride 117 H Carbon Dioxide 21 L BUN 20 Creatinine 0.8 Glucose 88 Calcium 9.9 Total Bilirubin 0.5 AST 29 ALT 23 Alkaline Phosphatase 158 H Troponin I 0.028 Total Protein 6.7 Albumin 3.3 L Globulin 3.4 Albumin/Globulin Ratio 0.90 L Amylase Lipase 08/16/17 20:45 VBG pH VBG pCO2 VBG HCO3 VBG Base Excess Sodium Potassium Chloride Carbon Dioxide BUN Creatinine Glucose Calcium Total Bilirubin AST ALT Alkaline Phosphatase Troponin I Total Protein Albumin Globulin Albumin/Globulin Ratio Amylase 444 H Lipase 2072 H* Patient Problems - Patient Problem List (1) Multiple organ failure Status: Acute Category: Medical (2) Coma Status: Acute Code(s): R40.20 - Unspecified coma Qualifiers: Coma depth: [place] coma 3-8 Coma timing: at hospital admission Qualified Code(s): R40.2433 - [place] coma scale score 3-8, at hospital admission Category: Medical (3) Acute pancreatitis Status: Acute Code(s): K85.90 - Acute pancreatitis without necrosis or infection, unspecified Qualifiers: Pancreatitis type: idiopathic Acute pancreatitis complication: no infection or necrosis Qualified Code(s): K85.00 - Idiopathic acute pancreatitis without necrosis or infection Category: Medical (4) Altered mental status Status: Acute Code(s): R41.82 - Altered mental status, unspecified Qualifiers: Altered mental status type: coma Coma depth: [place] coma 3-8 Coma timing : 24 hours or more after hospital admission Qualified Code(s): R40.2434 - [place] coma scale score 3-8, 24 hours or more after hospital admission Category: Medical (5) UTI (urinary tract infection) Status: Acute Code(s): N39.0 - Urinary tract infection, site not specified Qualifiers: Urinary tract infection type: acute cystitis Hematuria presence: without hematuria Qualified Code(s): N30.00 - Acute cystitis without hematuria Category: Medical (6) Hypernatremia Status: Acute Code(s): E87.0 - Hyperosmolality and hypernatremia Category: Medical (7) Sepsis associated hypotension Status: Resolved Code(s): A41.9 - Sepsis, unspecified organism Category: Medical (8) Respiratory failure Status: Resolved Code(s): J96.90 - Respiratory failure, unspecified, unspecified whether with hypoxia or hypercapnia Qualifiers: Chronicity: acute Respiratory failure complication: hypoxia Qualified Code(s): J96.01 - Acute respiratory failure with hypoxia Category: Medical (9) Hypotension Status: Acute Comment: This is resolved. 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
== END 2017-08-19 02:32 | disposition expired | DRG 689 ==
LOC: ER 14:57 → MED/SURG 16:55 → ICU 08-16 21:25 → MED/SURG 08-17 11:21
PROVIDERS: ADMIT Internal Medicine; ATTEND Family Medicine